=== PATIENT | female | born 1930 | race Caucasian/White ===

== ENCOUNTER 2018-01-12 10:53 | Inpatient (IN) | payer OTHER, MEDICARE ==
[~2018-01-12] VITALS: Ht 154.9 cm; Wt 47.6 kg
[~2018-01-12 10:53] MED LIST: CEPH500C PO; CONJ0.453 PO; DONE10TA12 PO; NAPR-1264 PO; NMN10 PO; POLY335025 PO; TRAM-10 PO
[2018-01-12 11:37] LABS: BASO % 0.1 %; BASO ABS # 0.02 K/uL (0-0.2); HEMATOCRIT 44.1 % (37-47); HEMOGLOBIN 15.2 g/dL (12.0-16.0); IG# 0.06 K/uL (0.00-0.02); LYMPH % 3.5 %; LYMPH ABS # 0.59 K/uL (1.2-3.4); MEAN CELL VOLUME 92.1 fL (80-100); MEAN CORPUSCULAR HEMOGLOBIN 31.7 pg (25-34); MEAN CORPUSCULAR HGB CONC 34.5 g/dl (32-36); MEAN PLATELET VOLUME 10.5 fL (7.4-10.4); MONO % 6.8 %; MONO ABS # 1.16 K/uL (0.11-0.59); NEUT % 89.2 %; NEUT ABS # 15.24 K/uL (1.4-6.5); PLATELET COUNT 202 K/uL (130-400); RED CELL DISTRIBUTION WIDTH CV 14.5 % (11.5-14.5); RED CELL DISTRIBUTION WIDTH SD 48.8 fL (36.4-46.3); WHITE BLOOD COUNT 17.07 K/uL (4.8-10.8)
[2018-01-12] MEDS ORDERED: SODIUM CHLORIDE 0.9% 1000ML 1,000 ML IV STA (11:38)
[2018-01-12] MEDS ORDERED: ONDANSETRON INJ 2 MG/ML 2 ML VIAL IV STA (11:38)
[2018-01-12] MEDS ORDERED: OPTIRAY 320 IV PRN (11:45)
[2018-01-12 11:56] LABS: ALKALINE PHOSPHATASE 70 U/L (45-117); ALT/SGPT 21 U/L (12-78); AST/SGOT 17 U/L (15-37); BLOOD UREA NITROGEN 20 mg/dl (7-18); CALCIUM 9.3 mg/dl (8.5-10.1); CARBON DIOXIDE 24 mmol/L (21-32); CREATININE 0.88 mg/dl (0.60-1.20); GLUCOSE 137 mg/dl (70-99); LIPASE 55 U/L (73-393); POTASSIUM 3.9 mmol/L (3.5-5.1); SODIUM 141 mmol/L (136-145)
--- NOTE | 2018-01-12 13:36 | DIAGNOSTIC IMAGING REPORT ---
ABD/PELVIS IV CONTRAST ONLY CT DOSE: 368.44 mGycm HISTORY: Pain abd pain TECHNIQUE: Multiaxial CT images of the abdomen and pelvis were performed following the use of intravenous contrast. A dose lowering technique was utilized adhering to the principles of ALARA. COMPARISON STUDY: 08/13/2011 FINDINGS: Fixed hiatal hernia. Bibasilar interstitial change considered nonspecific. Liver spleen appear unremarkable. Kidneys again demonstrate multiple parapelvic cysts which are unchanged. Exophytic cystic nodule projecting posteriorly from the pancreatic body is unaltered. The bladder is distended. There are findings of moderate wall edema of the sigmoid as well as descending colonic region. This is not well seen within the a sending or transverse colon, or are seen to a diminished extent. IMPRESSION: 1. Nonspecific colitis involving components of the transverse, descending and sigmoid colonic regions. 2. Mild reactive small bowel ileus. 3. Chronic mid to distal descending colonic diverticulosis 4. Multiple bilateral renal parapelvic cysts unchanged. 5. Fixed hiatal hernia increased in size from the prior study with interstitial and basilar bronchovascular prominence. The above report was generated using voice recognition software. It may contain grammatical, syntax or spelling errors. Electronically signed by: Srini Moore M.D. 01/12/2018 1:35 PM Dictated Date/Time: 01/12/2018 1:28 PM
[2018-01-12] MEDS ORDERED: CEFTRIAXONE SOD INJ 1 GM ADDVIAL IV STA (14:03)
[2018-01-12] MEDS ORDERED: FLUCONAZOLE 50 MG TAB PO ONE (14:15)
[2018-01-12] MEDS ORDERED: DONE5TAB26 PO (15:39)
--- NOTE | 2018-01-12 15:44 | DIAGNOSTIC IMAGING REPORT ---
CHEST ONE VIEW PORTABLE CLINICAL HISTORY: Leucocytosis COMPARISON STUDY: Radiograph April 20, 2008. FINDINGS: Moderate cardiomegaly is noted. There is a hiatal hernia. Contrast within the collecting systems and ureters is from recent contrast-enhanced abdominal CT. No pneumothorax or pleural effusion is noted. Lung volumes are diminished. There is no consolidation to suggest pneumonia. There is no evidence for overt pulmonary edema. There is pulmonary vascular congestion. IMPRESSION: 1. Pulmonary vascular congestion without overt pulmonary edema. 2. Moderate cardiomegaly. 3. No consolidation to suggest pneumonia. Electronically signed by: Ted Lynch M.D. 01/12/2018 3:43 PM Dictated Date/Time: 01/12/2018 3:41 PM
[2018-01-12] MEDS ORDERED: ACETAMINOPHEN 325 MG TAB PO PRN (16:00)
[2018-01-12] MEDS ORDERED: ONDANSETRON INJ 2 MG/ML 2 ML VIAL IV PRN (16:00)
[2018-01-12] MEDS ORDERED: NITROGLYCERIN 0.4 MG SL PER TAB CHARGE SL PRN (16:00)
--- NOTE | 2018-01-12 16:01 | DIAGNOSTIC IMAGING REPORT ---
HEAD WITHOUT CONTRAST (CT) CLINICAL HISTORY: 87 years-old Female presenting with reported NUNES. TECHNIQUE: Multidetector CT imaging of the head was performed without the use of intravenous contrast. IV contrast: None. A dose lowering technique was used consistent with the principles of ALARA (as low as reasonably achievable). COMPARISON: Brain MR from 2013. CT DOSE (mGy.cm): The estimated cumulative dose is 1577.26 mGycm. FINDINGS: [employer] topogram: Unremarkable. Proportional ventricular and sulcal prominence, likely age-related parenchymal volume loss. Periventricular and subcortical white matter hypoattenuation, nonspecific but likely indicative of chronic small vessel ischemic change. Old left cerebellar hemispheric infarct. No mass effect or midline shift. No hemorrhage or acute territorial infarct. No extra-axial fluid collection. Trace mucosal thickening in the right maxillary sinus. Calvarium intact. IMPRESSION: 1. Chronic small vessel ischemic change. No acute intracranial abnormality. Electronically signed by: Jorden Pacheco M.D. 01/12/2018 4:00 PM Dictated Date/Time: 01/12/2018 3:56 PM
[2018-01-12] MEDS ORDERED: PIPERACILL/TAZOBAC CONSULT ACTIVE PRN (16:30)
[2018-01-12] MEDS ORDERED: PIPERACILL/TAZOBAC IV 3.375 GM in D5W 100 ML IV SCH (16:30)
[2018-01-12 16:35] VITALS: BP 157/72; PULSE 66; TEMP 36.8; O2SAT 92
--- NOTE | 2018-01-12 16:36 | History and Physical ---
History & Physical Date & Time of Service: Jan 12, 2018 at 15:57 Chief Complaint: Upset Stomach Primary Care Physician: Hermelindo Baum D.O. History of Present Illness Source: patient, family, caregiver, clinic records, hospital records Pt is 87 y/o F with PMH Alzheimer dementia presented to ER with c/o brown vomiting. History obtained from family and caregiver as pt unable to give history. Patient's reports this morning woke up and found patient in bed covered with brown colored emesis with black flecks. Denies any recent changes in patient's mental status, reports patient slowly increased dementia over the past several years, however patient is is usually pleasant and does not regularly have complaints. reports patient has been eating and drinking normally. states he and patient ate pork roast and cabbage last evening for dinner. reports he had mild abdominal discomfort during the middle of the night which he related to over eating, but no vomiting or diarrhea. Report that patient has caregiver and nurse coming twice daily. Caregiver states 2 days ago patient stated that she was dizzy. States yesterday she said her head hurt. No known syncopal episodes or falls or head injuries. Denies NSAID or alcohol use. Denies recent antibiotic use. Denies hx known gastritis/ulcer. Unsure of last colonoscopy, thinks been greater than 10 years ago. Denies known colon problems. Family and caregiver deny any noted fever/chills, diaphoresis, diarrhea, constipation, melena, hematochezia, noted SOB, cough, choking, extremity edema, rashes, increased urination, hematuria. Reported steady decline in her weight over past several years. Further ROS not able to be obtained secondary to pt's mental status Past Medical/Surgical History Medical Problems: (1) Alzheimer's dementia Status: Chronic (2) Cardiac Dysrhythmia Nos Status: Chronic (3) Chronic lumbar pain Status: Chronic (4) Diverticulosis Colon (W/O Ment Of Hemorrhage) Status: Chronic (5) Fall at home Status: Resolved (6) Hx of right bundle branch block Status: Chronic (7) Hypertension Status: Chronic (8) Laceration of right forearm Status: Resolved (9) Osteoporosis Nos Status: Chronic (10) Ovarian cyst Status: Resolved (11) Right patella fracture Status: Resolved Surgical Problems: (1) History of hip surgery Status: Resolved (2) Hx of oophorectomy Status: Resolved Family History FH: dementia FH: skin cancer FH: stroke Social History Smoking Status: Never Smoker Smokeless Tobacco Use: No Alcohol Use: none Drug Use: none Marital Status: Housing status: lives with significant other Occupational Status: retired Immunizations History of Influenza Vaccine: Yes Influenza Vaccine Date: Mar 19, 2010 History of Tetanus Vaccine?: No History of Pneumococcal: Yes Pneumococcal Date: Mar 19, 2010 History of Hepatitis B Vaccine: No Allergies Coded Allergies: No Known Allergies (Verified , 01/12/18) Home Medications Scheduled Cefdinir (Omnicef), 1 CAP PO BID Donepezil Hydrochloride (Donepezil Hcl), 1 TAB PO DAILY Metronidazole (Flagyl), 500 MG PO TID Omeprazole (Prilosec), 1 CAP PO DAILY Review of Systems See HPI for pertinent positives & negatives. All other systems reviewed and were otherwise negative Physical Exam Vital Signs Date Time Temp Pulse Resp B/P (MAP) Pulse Ox O2 Delivery O2 Flow Rate FiO2 01/12/18 14:22 69 16 133/82 93 Room Air 01/12/18 13:27 65 16 135/95 95 Room Air 01/12/18 11:04 36.8 82 18 129/84 94 Room Air General Appearance: WD/WN, no apparent distress Head: normocephalic, atraumatic Eyes: normal inspection, PERRL, sclerae normal ENT: + pertinent finding (hard of hearing, mucous membranes moist) Neck: supple, trachea midline Respiratory/Chest: no respiratory distress, no accessory muscle use, + decreased breath sounds (throughout) Cardiovascular: regular rate, rhythm Abdomen/GI: normal bowel sounds, non tender (no apparent tenderness to palpation), soft Back: no CVA tenderness Extremities/Musculoskelatal: normal inspection, normal capillary refill, no pedal edema Neurologic/Psych: alert (pleasantly confused, oriented to person) Skin: warm/dry Diagnostics Laboratory Results Results Past 24 Hours Test 01/12/18 11:25 01/12/18 13:01 01/12/18 15:29 01/12/18 15:48 Range/Units White Blood Count 17.07 4.8-10.8 K/uL Red Blood Count 4.79 4.2-5.4 M/uL Hemoglobin 15.2 12.0-16.0 g/dL Hematocrit 44.1 37-47 % Mean Corpuscular Volume 92.1 80-100 fL Mean Corpuscular Hemoglobin 31.7 25-34 pg Mean Corpuscular Hemoglobin Concent 34.5 32-36 g/dl Platelet Count 202 130-400 K/uL Mean Platelet Volume 10.5 7.4-10.4 fL Neutrophils (%) (Auto) 89.2 % Lymphocytes (%) (Auto) 3.5 % Monocytes (%) (Auto) 6.8 % Eosinophils (%) (Auto) 0.0 % Basophils (%) (Auto) 0.1 % Neutrophils # (Auto) 15.24 1.4-6.5 K/uL Lymphocytes # (Auto) 0.59 1.2-3.4 K/uL Monocytes # (Auto) 1.16 0.11-0.59 K/uL Eosinophils # (Auto) 0.00 0-0.5 K/uL Basophils # (Auto) 0.02 0-0.2 K/uL RDW Standard Deviation 48.8 36.4-46.3 fL RDW Coefficient of Variation 14.5 11.5-14.5 % Immature Granulocyte % (Auto) 0.4 % Immature Granulocyte # (Auto) 0.06 0.00-0.02 K/uL Prothrombin Time 10.7 9.0-12.0 SECONDS Prothromb Time International Ratio 1.0 0.9-1.1 Sodium Level 141 136-145 mmol/L Potassium Level 3.9 3.5-5.1 mmol/L Chloride Level 107 98-107 mmol/L Carbon Dioxide Level 24 21-32 mmol/L Anion Gap 10.0 3-11 mmol/L Blood Urea Nitrogen 20 7-18 mg/dl Creatinine 0.88 0.60-1.20 mg/dl Estimated GFR () 69.0 Estimated GFR (Non- 59.5 BUN/Creatinine Ratio 22.6 10-20 Random Glucose 137 70-99 mg/dl Calcium Level 9.3 8.5-10.1 mg/dl Total Bilirubin 0.8 0.2-1 mg/dl Direct Bilirubin 0.2 0-0.2 mg/dl Aspartate Amino Transf (AST/SGOT) 17 15-37 U/L Alanine Aminotransferase (ALT/SGPT) 21 12-78 U/L Alkaline Phosphatase 70 45-117 U/L Total Protein 8.0 6.4-8.2 gm/dl Albumin 4.0 3.4-5.0 gm/dl Lipase 55 73-393 U/L Urine Color DK YELLOW Urine Appearance CLOUDY CLEAR Urine pH 5.0 4.5-7.5 Urine Specific [place] 1.041 1.000-1.030 Urine Protein 1+ NEG Urine Glucose (UA) NEG NEG Urine Ketones TRACE NEG Urine Occult Blood 1+ NEG Urine Nitrite NEG NEG Urine Bilirubin NEG NEG Urine Urobilinogen NEG NEG Urine Leukocyte Esterase MODERATE NEG Urine WBC (Auto) >30 0-5 /hpf Urine RBC (Auto) 0-4 0-4 /hpf Urine Hyaline Casts (Auto) 0-5 /lpf Urine Epithelial Cells (Auto) 0-5 0-5 /lpf Urine Bacteria (Auto) 4+ NEG Urine Pathogenic Casts 0 /lpf Urine Yeast (Auto) BUD W/ HYPHAE NONE PRSENT Microbiology Results 01/12/18 Blood Culture, Ordered Pending 01/12/18 Blood Culture, Ordered Pending 01/12/18 Urine Culture, Received Pending Diagnostic Radiology CT HEAD: IMPRESSION: 1. Chronic small vessel ischemic change. No acute intracranial abnormality. CXR: IMPRESSION: 1. Pulmonary vascular congestion without overt pulmonary edema. 2. Moderate cardiomegaly. 3. No consolidation to suggest pneumonia. CT ABDOMEN/PELVIS: IMPRESSION: 1. Nonspecific colitis involving components of the transverse, descending and sigmoid colonic regions. 2. Mild reactive small bowel ileus. 3. Chronic mid to distal descending colonic diverticulosis 4. Multiple bilateral renal parapelvic cysts unchanged. 5. Fixed hiatal hernia increased in size from the prior study with interstitial and basilar bronchovascular prominence. EKG EKG: sinus rhythm, rate 74, RBBB, T wave abnormality V1,V3, V4, II, III, avf Outpatient EKG report reviewed from 01/2017: NSR, RBBB, inferior infarct age undetermined, T wave abnormality, consider lateral ischemia Impression Assessment and Plan Pt is 87 y/o F with PMH Alzheimer dementia presented to ER with c/o brown vomiting. History obtained from family and caregiver as pt unable to give history. Patient's reports this morning woke up and found patient in bed covered with brown colored emesis with black flecks. GI BLEED COLITIS SMALL BOWEL ILEUS Pt reported found this morning with coffee ground emesis. No further vomiting in ER. In ER: Patient afebrile, vitals stable, Hgb: 15.2, BUN: 20, CR: 0.88. ABD/pelvis CT: Nonspecific colitis involving components of the transverse, descending and sigmoid colonic regions. Mild reactive small bowel ileus. Chronic mid to distal descending colonic diverticulosis. Multiple bilateral renal parapelvic cysts unchanged. Fixed hiatal hernia increased in size from the prior study with interstitial and basilar bronchovascular prominence. CT HEAD: no acute changes. In ER patient given 1 NSS, Zofran 4 mg, Rocephin -gentle IVF -NPO for now -holding on NG tube at this time as no further vomiting, no apparent abdominal discomfort or distension -Monitor H&H -Type & Cross and hold PRBCs at this time -Protonix IV BID -zosyn -cbc in am -KUB in am -GI consult - spoke to investor relations director provider LEUKOCYTOSIS UTI WBC: 17, lactic acid:WNL UA:moderate leuk, >30 WBC, 4+bacteria, +yeast CXR: Pulmonary vascular congestion without overt pulmonary edema. No consolidation to suggest pneumonia. In ER patient given Rocephin, Diflucan -Urine culture pending -Pending blood cultures, obtained after initial antibiotics -zosyn for now -cbc in am ALZHEIMER DEMENTIA pleasantly confused. No reported change from baseline per family -continue aricept H/O HTN no current meds DVT Prophylaxis -SCDs Admit tele Full Code as per discussion with pt family Follows with Dr Baum for routine care Pt was seen with Dr Vanessa. See addendum Attending Addendum Pt was seen and examined. Agreed with Radha DOUGHERTY exam, assessment and plan. 87 y/o F with PMH Alzheimer dementia presented to ER with for emesis. History is limited and obtained from family and caregiver due to patient dementia. As per pt was found in bed covered with coffee ground colored emesis. Pt denies any chest pain, palpitation, dizziness and SOB. CT abd/pelvis done in the ER showed a nonspecific colitis involving components of the transverse, descending and sigmoid colonic regions and mild reactive small bowel ileus. Hbg on admission stable. Was starting on PPI IV and gentle IVF. Will keep NPO. No NGT placement since pt is not actively vomiting. GI consult for EGD in am. Continue monitor H/H. MD Rasheeda Resuscitation Status VTE Prophylaxis Will order VTE Prophylaxis: Yes Additional Copies To David Vanessa M.D.
--- NOTE | 2018-01-12 17:16 | EMERGENCY ROOM VISIT NOTE ---
History Report prepared by Sahil: Dank Reyes Under the Supervision of: Dacia RomanO. First contact with patient: 11:13 Chief Complaint: VOMITING Stated Complaint: UPSET STOMACH History of Present Illness The patient is a 87 year old female who presents to the Emergency Room with complaints of intermittent "violent" vomiting beginning last night. Family states that she ate pulled pork last night and that she vomited 1 hour after the meal. They report that the patient does not remember what happened, but this is no different from the patient's baseline. The patient denies having diarrhea but notes she has occasional abdominal pain, but not currently. She denies headache, changes in vision, or urinary symptoms. Family reports that the patient last vomited at 4 AM. They state that she was seen by family at around 10 AM with dried green vomit on her bed. They report that she does not take blood thinners. They state that she has had nothing to eat or drink this morning. Caregiver did note that patient had coffee-ground emesis at home. This was covering her hands in the ER. History was limited secondary to dementia and was obtained mainly from and caregiver. Source of History: patient, family Onset: last night Position: throat (vomiting) Symptom Intensity: "violent" Quality: other (vomiting) Timing: intermittent Associated Symptoms: No headache, No urinary symptoms Review of Systems See HPI for pertinent positives & negatives. A total of 10 systems reviewed and were otherwise negative. Past Medical & Surgical Medical Problems: (1) Alzheimer's dementia (2) Cardiac Dysrhythmia Nos (3) Chronic lumbar pain (4) Diverticulosis Colon (W/O Ment Of Hemorrhage) (5) Fall at home (6) GI bleed (7) Hx of right bundle branch block (8) Hypertension (9) Laceration of right forearm (10) Osteoporosis Nos (11) Ovarian cyst (12) Right patella fracture (13) Vomiting Surgical Problems: (1) History of hip surgery (2) Hx of oophorectomy Family History FH: dementia FH: skin cancer FH: stroke Social History Smoking Status: Never Smoker Alcohol Use: occasionally Marital Status: Housing Status: lives with family Occupation Status: retired Current/Historical Medications Scheduled Donepezil Hydrochloride (Donepezil Hcl), 1 TAB PO DAILY Allergies Coded Allergies: No Known Allergies (Verified , 8/13/18) Physical Exam Vital Signs Date Time Temp Pulse Resp B/P (MAP) Pulse Ox O2 Delivery O2 Flow Rate FiO2 01/12/18 14:22 69 16 133/82 93 Room Air 01/12/18 13:27 65 16 135/95 95 Room Air 01/12/18 11:04 36.8 82 18 129/84 94 Room Air Physical Exam GENERAL: Sitting up in bed, pleasantly demented, non-toxic EYE EXAM: normal conjunctiva. PERRL and EOM's grossly intact. OROPHARYNX: no exudate, no erythema, lips, buccal mucosa, and tongue normal and mucous membranes are dry NECK: supple, no nuchal rigidity, no adenopathy, non-tender LUNGS: Clear to auscultation. Normal chest wall mechanics HEART: no murmurs, S1 normal and S2 normal ABDOMEN: abdomen soft, non-tender, normo-active bowel sounds, no masses, no rebound or guarding. BACK: Back is symmetrical on inspection and there is no deformity, no midline tenderness, no CVA tenderness. SKIN: no rashes and no bruising UPPER EXTREMITIES: upper extremities are grossly normal. LOWER EXTREMITIES: No pitting edema. NEURO EXAM: Awake, alert, following commands, pleasantly demented. Cranial nerves II-XII intact, normal speech, no weakness of arms, no weakness of legs. No drift. Finger to nose intact. Gross sensation intact. Medical Decision & Procedures ER Provider Diagnostic Interpretation: Radiology results as stated below per my review and the radiologist's interpretation: CHEST ONE VIEW PORTABLE CLINICAL HISTORY: Leucocytosis COMPARISON STUDY: Radiograph April 20, 2008. FINDINGS: Moderate cardiomegaly is noted. There is a hiatal hernia. Contrast within the collecting systems and ureters is from recent contrast-enhanced abdominal CT. No pneumothorax or pleural effusion is noted. Lung volumes are diminished. There is no consolidation to suggest pneumonia. There is no evidence for overt pulmonary edema. There is pulmonary vascular congestion. IMPRESSION: 1. Pulmonary vascular congestion without overt pulmonary edema. 2. Moderate cardiomegaly. 3. No consolidation to suggest pneumonia. Electronically signed by: Ted Lynch M.D. 01/12/2018 3:43 PM Dictated Date/Time: 01/12/2018 3:41 PM HEAD WITHOUT CONTRAST (CT) CLINICAL HISTORY: 87 years-old Female presenting with reported NUNES. TECHNIQUE: Multidetector CT imaging of the head was performed without the use of intravenous contrast. IV contrast: None. A dose lowering technique was used consistent with the principles of ALARA (as low as reasonably achievable). COMPARISON: Brain MR from 2013. CT DOSE (mGy.cm): The estimated cumulative dose is 1577.26 mGycm. 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 Proportional ventricular and sulcal prominence, likely age-related parenchymal volume loss. Periventricular and subcortical white matter hypoattenuation, nonspecific but likely indicative of chronic small vessel ischemic change. Old left cerebellar hemispheric infarct. No mass effect or midline shift. No hemorrhage or acute territorial infarct. No extra-axial fluid collection. Trace mucosal thickening in the right maxillary sinus. Calvarium intact. IMPRESSION: 1. Chronic small vessel ischemic change. No acute intracranial abnormality. Electronically signed by: Jorden Pacheco M.D. 01/12/2018 4:00 PM Dictated Date/Time: 01/12/2018 3:56 PM ABD/PELVIS IV CONTRAST ONLY CT DOSE: 368.44 mGycm HISTORY: Pain abd pain TECHNIQUE: Multiaxial CT images of the abdomen and pelvis were performed following the use of intravenous contrast. A dose lowering technique was utilized adhering to the principles of ALARA. COMPARISON STUDY: 08/13/2011 FINDINGS: Fixed hiatal hernia. Bibasilar interstitial change considered nonspecific. Liver spleen appear unremarkable. Kidneys again demonstrate multiple parapelvic cysts which are unchanged. Exophytic cystic nodule projecting posteriorly from the pancreatic body is unaltered. The bladder is distended. There are findings of moderate wall edema of the sigmoid as well as descending colonic region. This is not well seen within the a sending or transverse colon, or are seen to a diminished extent. IMPRESSION: 1. Nonspecific colitis involving components of the transverse, descending and sigmoid colonic regions. 2. Mild reactive small bowel ileus. 3. Chronic mid to distal descending colonic diverticulosis 4. Multiple bilateral renal parapelvic cysts unchanged. 5. Fixed hiatal hernia increased in size from the prior study with interstitial and basilar bronchovascular prominence. The above report was generated using voice recognition software. It may contain grammatical, syntax or spelling errors. Electronically signed by: Srini Moore M.D. 01/12/2018 1:35 PM Dictated Date/Time: 01/12/2018 1:28 PM Laboratory Results 01/12/18 11:25 Red Blood Count 4.79, Mean Corpuscular Volume 92.1, Mean Corpuscular Hemoglobin 31.7, Mean Corpuscular Hemoglobin Concent 34.5, Mean Platelet Volume 10.5, Neutrophils (%) (Auto) 89.2, Lymphocytes (%) (Auto) 3.5, Monocytes (%) (Auto) 6.8, Eosinophils (%) (Auto) 0.0, Basophils (%) (Auto) 0.1, Neutrophils # (Auto) 15.24, Lymphocytes # (Auto) 0.59, Monocytes # (Auto) 1.16, Eosinophils # (Auto) 0.00, Basophils # (Auto) 0.02 01/12/18 11:25 Test 01/12/18 11:25 01/12/18 13:01 White Blood Count 17.07 K/uL (4.8-10.8) Red Blood Count 4.79 M/uL (4.2-5.4) Hemoglobin 15.2 g/dL (12.0-16.0) Hematocrit 44.1 % (37-47) Mean Corpuscular Volume 92.1 fL (80-100) Mean Corpuscular Hemoglobin 31.7 pg (25-34) Mean Corpuscular Hemoglobin Concent 34.5 g/dl (32-36) Platelet Count 202 K/uL (130-400) Mean Platelet Volume 10.5 fL (7.4-10.4) Neutrophils (%) (Auto) 89.2 % Lymphocytes (%) (Auto) 3.5 % Monocytes (%) (Auto) 6.8 % Eosinophils (%) (Auto) 0.0 % Basophils (%) (Auto) 0.1 % Neutrophils # (Auto) 15.24 K/uL (1.4-6.5) Lymphocytes # (Auto) 0.59 K/uL (1.2-3.4) Monocytes # (Auto) 1.16 K/uL (0.11-0.59) Eosinophils # (Auto) 0.00 K/uL (0-0.5) Basophils # (Auto) 0.02 K/uL (0-0.2) RDW Standard Deviation 48.8 fL (36.4-46.3) RDW Coefficient of Variation 14.5 % (11.5-14.5) Immature Granulocyte % (Auto) 0.4 % Immature Granulocyte # (Auto) 0.06 K/uL (0.00-0.02) Prothrombin Time 10.7 SECONDS (9.0-12.0) Prothromb Time International Ratio 1.0 (0.9-1.1) Anion Gap 10.0 mmol/L (3-11) Estimated GFR () 69.0 Estimated GFR (Non- 59.5 BUN/Creatinine Ratio 22.6 (10-20) Calcium Level 9.3 mg/dl (8.5-10.1) Total Bilirubin 0.8 mg/dl (0.2-1) Direct Bilirubin 0.2 mg/dl (0-0.2) Aspartate Amino Transf (AST/SGOT) 17 U/L (15-37) Alanine Aminotransferase (ALT/SGPT) 21 U/L (12-78) Alkaline Phosphatase 70 U/L (45-117) Total Protein 8.0 gm/dl (6.4-8.2) Albumin 4.0 gm/dl (3.4-5.0) Lipase 55 U/L (73-393) Urine Color DK YELLOW Urine Appearance CLOUDY (CLEAR) Urine pH 5.0 (4.5-7.5) Urine Specific [place] 1.041 (1.000-1.030) Urine Protein 1+ (NEG) Urine Glucose (UA) NEG (NEG) Urine Ketones TRACE (NEG) Urine Occult Blood 1+ (NEG) Urine Nitrite NEG (NEG) Urine Bilirubin NEG (NEG) Urine Urobilinogen NEG (NEG) Urine Leukocyte Esterase MODERATE (NEG) Urine WBC (Auto) >30 /hpf (0-5) Urine RBC (Auto) 0-4 /hpf (0-4) Urine Hyaline Casts (Auto) /lpf (0-5) Urine Epithelial Cells (Auto) 0-5 /lpf (0-5) Urine Bacteria (Auto) 4+ (NEG) Urine Pathogenic Casts /lpf (0) Urine Yeast (Auto) BUD W/ HYPHAE (NONE PRSENT) Laboratory results per my review. Medications Administered Medications (Trade) Dose Ordered Sig/Tiarra Route Start Time Stop Time Status Last Admin Dose Admin Sodium Chloride 1,000 ml @ 999 mls/hr Q1H1M STAT IV 01/12/18 11:38 01/12/18 12:38 DC 01/12/18 11:44 999 MLS/HR Ondansetron HCl (Zofran Inj) 4 mg NOW STAT IV 01/12/18 11:38 01/12/18 11:40 DC 01/12/18 11:45 4 MG Ceftriaxone Sodium (Rocephin Inj) 1 gm NOW STAT IV 01/12/18 14:03 01/12/18 14:05 DC 01/12/18 14:14 1 GM Fluconazole (Diflucan Tab) 150 mg NOW ONCE PO 01/12/18 14:15 01/12/18 14:16 DC 01/12/18 14:14 150 MG ECG Per My Interpretation Indication: vomiting Rate (beats per minute): 74 Rhythm: normal sinus Findings: T-wave inversion (Inferior, septal, anterior), other (RBBB) Comparison ECG Date: 01/17/2014 Change: no significant change (RBBB is new) ED Course ED COURSE: Vital signs were reviewed and showed normal vitals The patients medical record was reviewed The above diagnostic studies were performed and reviewed. ED treatments and interventions as stated above. 1138: The patient was evaluated in room C11A. A complete history and physical examination was performed. 1438: I spoke with Radha Patterson PA-C: [facility] Hospitalist. She will reevaluate the patient for hospitalization. Based on the patients age, coexisting illnesses, exam and lab findings the decision to treat as an [inpatient][outpatient] was made. The patient remained stable while under my care. [The patient appeared well at the time of discharge.] [The patient will be evaluated for further management.] Medical Decision Differential diagnoses includes but is not limited to gastritis, peptic ulcer disease, GERD, gallbladder disease, pancreatitis, small bowel obstruction, acute coronary syndrome, pericarditis, ischemic bowel, irritable bowel disease, irritable bowel syndrome, appendicitis, diverticulitis, malignancy, hernia, urinary tract infection, torsion, [/ectopic (if female)], perforation, trauma, infectious. Patient is an 87-year-old female who presents the ER for nausea vomiting. Significant other notes that she is at her baseline and she has dementia and started vomiting last night after eating. Labs were remarkable for a leukocytosis of 17,000. BMP along with LFTs, bilirubin and lipase was unremarkable. Her abdominal exam is fairly benign. UA does suggest that she has a UTI along with a yeast infection. She was given IV Rocephin and Diflucan. CT abdomen and pelvis does show an ileus with diffuse colitis. EKG was unremarkable. Discussed with the hospitalist due to the ileus, UTI and persistent nausea vomiting along with the coffee-ground emesis which is noted by the caregiver and present on her hands. Medication Reconcilliation Current Medication List: was personally reviewed by me Blood Pressure Screening Patient's blood pressure: Normal blood pressure Blood pressure disposition: Did not require urgent referral Consults Time Called: 1425 Consulting Physician: Radha Patterson PA-C: [facility]. Returned Call: 1438 I spoke with Radha Patterson PA-C: [facility]. She will reevaluate the patient for hospitalization. Impression Primary Impression: Vomiting Additional Impressions: Urinary tract infection Hematemesis Scribe Attestation The scribe's documentation has been prepared under my direction and personally reviewed by me in its entirety. I confirm that the note above accurately reflects all work, treatment, procedures, and medical decision making performed by me. Departure Information Dispostion Being Evaluated By Hospitalist Referrals RV. Champion MD (PCP) Patient Instructions [facility] Problem Qualifiers Primary Impression: Vomiting Vomiting type: unspecified Vomiting Intractability: unspecified Nausea presence: unspecified Qualified Codes: R11.10 - Vomiting, unspecified Additional Impressions: Urinary tract infection Urinary tract infection type: acute cystitis Hematuria presence: with hematuria Qualified Codes: N30.01 - Acute cystitis with hematuria Hematemesis Nausea presence: unspecified Qualified Codes: K92.0 - Hematemesis
--- NOTE | 2018-01-12 17:24 | Gastrointestinal Consultation ---
Gastrointestinal Consultation Date of Consultation: Jan 12, 2018 Attending Physician: Radha Patterson Consulting Physician: Maryuri Chowdary MD Reason for Consultation: coffee ground emesis History of Present Illness Patient is an 87 year old female with a recent hx of intermittent epigastric discomfort and occasional dizziness, found this morning in bed covered in coffee ground emesis. She has dementia and history is provided by her daughter, who is with her at bedside. Hgb is 15. WBC is elevated at 17. BUN is mildly elevated at 20, with a normal creat. CTAP as below. Patient has had no further emesis since she has been in the ED. She continues with mild epigastric discomfort. Per her daughter, she did have a GI evaluation about 3 years ago in [place], but she does not know the details. We have no record of prior endoscopic evaluation. CTAP: IMPRESSION: 1. Nonspecific colitis involving components of the transverse, descending and sigmoid colonic regions. 2. Mild reactive small bowel ileus. 3. Chronic mid to distal descending colonic diverticulosis 4. Multiple bilateral renal parapelvic cysts unchanged. 5. Fixed hiatal hernia increased in size from the prior study with interstitial and basilar bronchovascular prominence. Past Medical/Surgical History Past Medical History: HTN, RBBB, Dementia, osteoporosis Past Surgical History: hip surgery, oophorectomy Family History FH: dementia FH: skin cancer FH: stroke Social History Smoking Status: Never Smoker Alcohol Use: occasionally Drug Use: none Marital Status: Housing Status: lives with family Occupation Status: retired Allergies Coded Allergies: No Known Allergies (Verified , 01/12/18) Current Medications Home Meds and Scripts Medications Dose Route/Sig Max Daily Dose Days Date Category Donepezil Hcl (Donepezil Hydrochloride) 5 Mg Tab 1 Tab PO DAILY 30 01/12/18 Reported Review of Systems Constitutional: No fever, No chills Eyes: No worsening of vision ENT: No hearing loss Respiratory: No cough, No shortness of breath Cardiac: No chest pain Abdomen: + see HPI Female : No dysuria (patient noted to have a UTI) Neuro: + memory loss Psych: No problem reported Heme: + see HPI Endo: No excessive thirst, No excessive urination Skin: No rash, No itch Physical Exam Date Time Temp Pulse Resp B/P (MAP) Pulse Ox O2 Delivery O2 Flow Rate FiO2 01/12/18 16:35 36.8 66 22 157/72 (100) 92 Room Air 01/12/18 16:10 36.8 69 16 133/82 93 01/12/18 14:22 69 16 133/82 93 Room Air 01/12/18 13:27 65 16 135/95 95 Room Air 01/12/18 11:04 36.8 82 18 129/84 94 Room Air General Appearance: no apparent distress Eyes: normal inspection ENT: hearing grossly normal Neck: supple Respiratory/Chest: lungs clear, normal breath sounds, no respiratory distress Cardiovascular: regular rate, rhythm Abdomen: normal bowel sounds, non tender, soft, no organomegaly Extremities: no pedal edema Neurologic/Psych: alert, normal mood/affect Skin: no jaundice, warm/dry Laboratory Results Last 24 Hours Test 01/12/18 11:25 01/12/18 13:01 01/12/18 16:07 01/12/18 17:00 White Blood Count 17.07 K/uL Red Blood Count 4.79 M/uL Hemoglobin 15.2 g/dL Hematocrit 44.1 % Mean Corpuscular Volume 92.1 fL Mean Corpuscular Hemoglobin 31.7 pg Mean Corpuscular Hemoglobin Concent 34.5 g/dl Platelet Count 202 K/uL Mean Platelet Volume 10.5 fL Neutrophils (%) (Auto) 89.2 % Lymphocytes (%) (Auto) 3.5 % Monocytes (%) (Auto) 6.8 % Eosinophils (%) (Auto) 0.0 % Basophils (%) (Auto) 0.1 % Neutrophils # (Auto) 15.24 K/uL Lymphocytes # (Auto) 0.59 K/uL Monocytes # (Auto) 1.16 K/uL Eosinophils # (Auto) 0.00 K/uL Basophils # (Auto) 0.02 K/uL RDW Standard Deviation 48.8 fL RDW Coefficient of Variation 14.5 % Immature Granulocyte % (Auto) 0.4 % Immature Granulocyte # (Auto) 0.06 K/uL Prothrombin Time 10.7 SECONDS Prothromb Time International Ratio 1.0 Sodium Level 141 mmol/L Potassium Level 3.9 mmol/L Chloride Level 107 mmol/L Carbon Dioxide Level 24 mmol/L Anion Gap 10.0 mmol/L Blood Urea Nitrogen 20 mg/dl Creatinine 0.88 mg/dl Estimated GFR () 69.0 Estimated GFR (Non- 59.5 BUN/Creatinine Ratio 22.6 Random Glucose 137 mg/dl Calcium Level 9.3 mg/dl Total Bilirubin 0.8 mg/dl Direct Bilirubin 0.2 mg/dl Aspartate Amino Transf (AST/SGOT) 17 U/L Alanine Aminotransferase (ALT/SGPT) 21 U/L Alkaline Phosphatase 70 U/L Total Protein 8.0 gm/dl Albumin 4.0 gm/dl Lipase 55 U/L Urine Color DK YELLOW Urine Appearance CLOUDY Urine pH 5.0 Urine Specific [place] 1.041 Urine Protein 1+ Urine Glucose (UA) NEG Urine Ketones TRACE Urine Occult Blood 1+ Urine Nitrite NEG Urine Bilirubin NEG Urine Urobilinogen NEG Urine Leukocyte Esterase MODERATE Urine WBC (Auto) >30 /hpf Urine RBC (Auto) 0-4 /hpf Urine Hyaline Casts (Auto) /lpf Urine Epithelial Cells (Auto) 0-5 /lpf Urine Bacteria (Auto) 4+ Urine Pathogenic Casts /lpf Urine Yeast (Auto) BUD W/ HYPHAE Lactic Acid Level 1.9 mmol/L Troponin I < 0.015 ng/ml Impression Patient is a 87 year old female presenting after one episode of coffee ground emesis. Hgb normal at 15. Plan IV PPI twice daily as current. Clear liquid diet. Monitor labs/symptoms. Would consider EGD on Friday vs outpatient, pending course. OP colonoscopy. I have seen and examined the patient and agree with above assessment and plan, she has no abdominal pain or tenderness. I reviewed and discussed the assessment and plan with Mayte Rashid and agree with her note. 87 F presented with coffee ground emesis and weakness, found with sepsis related to UTI, no vomiting in the hospital, H/H normal. Likely Esophagitis or small MWT and seems self limited now. IV PPI Treat sepsis will plan for EGD once clinically recovered from sepsis to tolerate anaesthesia , tentatively on Friday.
[2018-01-12] MEDS: SODIUM CHLORIDE 0.9% 1000ML 1,000 ML IV SCH (17:27)
[2018-01-12 17:30] VITALS: BP 157/72; PULSE 66; TEMP 36.8; O2SAT 92; Ht 154.9 cm; Wt 47.6 kg
[2018-01-12 18:26] LABS: HEMATOCRIT 40.3 % (37-47); HEMOGLOBIN 13.8 g/dL (12.0-16.0)
[2018-01-12] MEDS ORDERED: PATIENT'S HEIGHT NEEDED SCH (18:30)
[2018-01-12 19:17] VITALS: BP 122/64; PULSE 73; TEMP 36.4; O2SAT 91
[2018-01-12] MEDS: PANTOprazole INJ 40 MG in SYRINGE 0 ML IV SCH (20:37)
[2018-01-12 21:14] VITALS: BP 107/61; PULSE 63; TEMP 36.8; O2SAT 92
[2018-01-12] MEDS: PIPERACILL/TAZOBAC IV 3.375 GM in D5W 100ML IV SCH (23:49)
[2018-01-13 04:37] VITALS: BP 126/71; PULSE 68; TEMP 37.2; O2SAT 93
[2018-01-13 06:01] LABS: BASO % 0.2 %; BASO ABS # 0.02 K/uL (0-0.2); EOS % 1.6 %; EOS ABS # 0.21 K/uL (0-0.5); HEMATOCRIT 37.6 % (37-47); HEMOGLOBIN 12.8 g/dL (12.0-16.0); IG# 0.05 K/uL (0.00-0.02); LYMPH % 10.5 %; LYMPH ABS # 1.36 K/uL (1.2-3.4); MEAN CELL VOLUME 94.2 fL (80-100); MEAN CORPUSCULAR HEMOGLOBIN 32.1 pg (25-34); MEAN PLATELET VOLUME 10.1 fL (7.4-10.4); MONO % 9.1 %; MONO ABS # 1.18 K/uL (0.11-0.59); NEUT % 78.2 %; NEUT ABS # 10.12 K/uL (1.4-6.5); PLATELET COUNT 155 K/uL (130-400); RED CELL DISTRIBUTION WIDTH CV 14.8 % (11.5-14.5); RED CELL DISTRIBUTION WIDTH SD 50.8 fL (36.4-46.3); WHITE BLOOD COUNT 12.94 K/uL (4.8-10.8)
[2018-01-13 06:30] LABS: CALCIUM 8.3 mg/dl (8.5-10.1); CREATININE 0.93 mg/dl (0.60-1.20); POTASSIUM 3.6 mmol/L (3.5-5.1)
[2018-01-13 07:00] VITALS: BP 119/67; PULSE 53; TEMP 37.1; O2SAT 92
[2018-01-13] MEDS: PIPERACILL/TAZOBAC IV 3.375 GM in D5W 100ML IV SCH ×2 (07:34→16:14)
[2018-01-13] MEDS: DONEPEZIL HCL 5 MG TAB PO SCH (08:20)
[2018-01-13] MEDS: PANTOprazole INJ 40 MG in SYRINGE 0 ML IV SCH ×2 (08:21→20:51)
--- NOTE | 2018-01-13 08:22 | DIAGNOSTIC IMAGING REPORT ---
KUB CLINICAL HISTORY: 87 years-old Female presenting with small bowel ileus. TECHNIQUE: Single supine view of the abdomen was obtained. COMPARISON: CT from 01/12/2018 and plain radiograph from 01/17/2014. FINDINGS: Paucity of small bowel gas, nonspecific. Allowing for this, nonobstructive bowel gas pattern. No gross pneumoperitoneum. Excreted contrast noted in the urinary bladder. No radiographic evidence of renal or ureteral calculi. Atherosclerotic calcifications noted. Degenerative change and scoliotic curvature of the lumbar spine. Postsurgical changes of total right hip arthroplasty. Osteopenia suspected. IMPRESSION: 1. No radiographic evidence of bowel obstruction or ileus allowing for the paucity of small bowel gas. Electronically signed by: Jorden Pacheco M.D. 01/13/2018 8:21 AM Dictated Date/Time: 01/13/2018 8:15 AM
[2018-01-13 11:31] VITALS: BP 101/68; PULSE 61; TEMP 36.3; O2SAT 96
[2018-01-13] MEDS: SODIUM CHLORIDE 0.9% 1000ML 1,000 ML IV SCH ×2 (11:32→16:14)
--- NOTE | 2018-01-13 12:23 | Gastroenterology Progress Note ---
Progress Note Date of Service: Jan 13, 2018 Subjective Pt evaluation today including: conversation w/ patient, conversation w/ family , physical exam, chart review, lab review, review of studies Patient is feeling well today. No further emesis. No nausea. Denies abdominal pain. No BM since admission. Tolerating clears. Hgb stable at 12.8. Review of Systems Constitutional: No fever, No chills Eyes: No worsening of vision ENT: + hearing loss Respiratory: No cough, No shortness of breath Cardiac: No chest pain Abdomen: + see HPI Musculoskeletal: No joint pain Female : No dysuria Neuro: + memory loss Psych: No problem reported Heme: No abnormal bleeding/bruising Endo: No excessive thirst, No excessive urination Skin: No rash, No itch Medications Current Inpatient Medications Medications (Trade) Dose Ordered Sig/Tiarra Route Start Time Stop Time Status Last Admin Dose Admin Ioversol (Optiray 320) 100 ml UD PRN IV 01/12/18 11:45 01/16/18 11:44 Pantoprazole Sodium 40 mg/ Syringe 10 ml @ 5 mls/min DAILY@ IV 01/12/18 21:00 02/11/18 20:59 01/13/18 08:21 5 MLS/MIN Acetaminophen (Tylenol Tab) 650 mg Q4H PRN PO 01/12/18 16:00 02/11/18 15:59 Ondansetron HCl (Zofran Inj) 4 mg Q6H PRN IV 01/12/18 16:00 02/11/18 15:59 Nitroglycerin (Nitrostat Tab) 0.4 mg UD PRN SL 01/12/18 16:00 02/11/18 15:59 Miscellaneous Information (Consult) 1 ea UD PRN N/A 01/12/18 16:30 02/11/18 16:29 Sodium Chloride 1,000 ml @ 80 mls/hr [id number] IV 01/12/18 16:00 02/11/18 15:59 01/13/18 11:32 80 MLS/HR Donepezil HCl (Aricept Tab) 5 mg DAILY PO 01/13/18 09:00 02/12/18 08:59 01/13/18 08:20 5 MG Piperacillin Sod/ Tazobactam Sod 3.375 gm/Dextrose 115 ml @ 28.75 mls/ hr Q8H IV 01/13/18 00:00 01/18/18 00:00 01/13/18 07:34 28.75 MLS/HR Objective Vital Signs Date Time Temp Pulse Resp B/P (MAP) Pulse Ox O2 Delivery O2 Flow Rate FiO2 01/13/18 11:31 36.3 61 20 101/68 (79) 96 Room Air 01/13/18 08:00 Room Air 01/13/18 07:00 37.1 53 20 119/67 (84) 92 Room Air 01/13/18 04:37 37.2 68 18 126/71 (89) 93 Room Air 01/12/18 21:14 36.8 63 20 107/61 (76) 92 Room Air 01/12/18 20:00 Room Air 01/12/18 19:17 36.4 73 19 122/64 (83) 91 Room Air 01/12/18 17:30 36.8 66 22 157/72 92 Room Air 01/12/18 16:35 36.8 66 22 157/72 (100) 92 Room Air 01/12/18 16:10 36.8 69 16 133/82 93 01/12/18 14:22 69 16 133/82 93 Room Air 01/12/18 13:27 65 16 135/95 95 Room Air Physical Exam General Appearance: no apparent distress Eyes: normal inspection Neck: supple Respiratory/Chest: lungs clear, normal breath sounds, no respiratory distress Cardiovascular: regular rate, rhythm Abdomen: normal bowel sounds, non tender, soft, no organomegaly Extremities: no pedal edema Neurologic/Psych: alert, normal mood/affect Skin: warm/dry, no rash Laboratory Results Last 24 Hours Test 01/12/18 13:01 01/12/18 16:07 01/12/18 17:11 01/13/18 05:23 Urine Color DK YELLOW Urine Appearance CLOUDY Urine pH 5.0 Urine Specific [place] 1.041 Urine Protein 1+ Urine Glucose (UA) NEG Urine Ketones TRACE Urine Occult Blood 1+ Urine Nitrite NEG Urine Bilirubin NEG Urine Urobilinogen NEG Urine Leukocyte Esterase MODERATE Urine WBC (Auto) >30 /hpf Urine RBC (Auto) 0-4 /hpf Urine Hyaline Casts (Auto) /lpf Urine Epithelial Cells (Auto) 0-5 /lpf Urine Bacteria (Auto) 4+ Urine Pathogenic Casts /lpf Urine Yeast (Auto) BUD W/ HYPHAE Lactic Acid Level 1.9 mmol/L Troponin I < 0.015 ng/ml Hemoglobin 13.8 g/dL 12.8 g/dL Hematocrit 40.3 % 37.6 % White Blood Count 12.94 K/uL Red Blood Count 3.99 M/uL Mean Corpuscular Volume 94.2 fL Mean Corpuscular Hemoglobin 32.1 pg Mean Corpuscular Hemoglobin Concent 34.0 g/dl Platelet Count 155 K/uL Mean Platelet Volume 10.1 fL Neutrophils (%) (Auto) 78.2 % Lymphocytes (%) (Auto) 10.5 % Monocytes (%) (Auto) 9.1 % Eosinophils (%) (Auto) 1.6 % Basophils (%) (Auto) 0.2 % Neutrophils # (Auto) 10.12 K/uL Lymphocytes # (Auto) 1.36 K/uL Monocytes # (Auto) 1.18 K/uL Eosinophils # (Auto) 0.21 K/uL Basophils # (Auto) 0.02 K/uL RDW Standard Deviation 50.8 fL RDW Coefficient of Variation 14.8 % Immature Granulocyte % (Auto) 0.4 % Immature Granulocyte # (Auto) 0.05 K/uL Sodium Level 142 mmol/L Potassium Level 3.6 mmol/L Chloride Level 110 mmol/L Carbon Dioxide Level 26 mmol/L Anion Gap 6.0 mmol/L Blood Urea Nitrogen 14 mg/dl Creatinine 0.93 mg/dl Est Creatinine Clear Calc Drug Dose 31.5 ml/min Estimated GFR () 64.5 Estimated GFR (Non- 55.6 BUN/Creatinine Ratio 15.2 Random Glucose 86 mg/dl Calcium Level 8.3 mg/dl Assessment and Plan Patient is an 87 year old female presenting after one episode of coffee ground emesis. Hgb stable today at 12.8. -Continue clear liquids today, NPO after midnight -Continue PPI -EGD tomorrow I performed a history and physical examination of the patient, including specifically soft, nontender abdomen, I have discussed the patient's management with Mayte Rashid PA-C. Please refer to the PA's note for the documented findings and plan of care.
[2018-01-13 15:42] VITALS: BP 128/76; PULSE 61; TEMP 36.9; O2SAT 93
[2018-01-13 16:22] VITALS: O2SAT 93
--- NOTE | 2018-01-13 18:16 | Progress Note ---
Medicine Progress Note Date & Time of Visit: Jan 13, 2018 at 16:55. Subjective Pt was seen and examined Lying in bed with no distress with daughter at bedside Pt is hard to hear and with dementia No episode of vomiting since admitted Tolerated clear liquid diet Denies any chest pain, palpitation and SOB Objective Last 8 Hrs Date Time Temp Pulse Resp B/P (MAP) Pulse Ox O2 Delivery O2 Flow Rate FiO2 01/13/18 15:42 36.9 61 16 128/76 (93) 93 Room Air 01/13/18 11:31 36.3 61 20 101/68 (79) 96 Room Air Physical Exam: General- No acute distress Head- atraumatic Eyes- PERRL, EOMI ENT- oropharynx clear, decrease hearing function Neck- supple, no JVD Lungs- No wheezing Heart- regular rhythm; no murmur Abdomen- normal bowel sounds, soft Extremities- no calf tenderness Neuro- alert, oriented, PERRL, EOMI Skin- warm & dry Laboratory Results: Last 24 Hours Test 01/12/18 17:11 01/13/18 05:23 Hemoglobin 13.8 g/dL 12.8 g/dL Hematocrit 40.3 % 37.6 % White Blood Count 12.94 K/uL Red Blood Count 3.99 M/uL Mean Corpuscular Volume 94.2 fL Mean Corpuscular Hemoglobin 32.1 pg Mean Corpuscular Hemoglobin Concent 34.0 g/dl Platelet Count 155 K/uL Mean Platelet Volume 10.1 fL Neutrophils (%) (Auto) 78.2 % Lymphocytes (%) (Auto) 10.5 % Monocytes (%) (Auto) 9.1 % Eosinophils (%) (Auto) 1.6 % Basophils (%) (Auto) 0.2 % Neutrophils # (Auto) 10.12 K/uL Lymphocytes # (Auto) 1.36 K/uL Monocytes # (Auto) 1.18 K/uL Eosinophils # (Auto) 0.21 K/uL Basophils # (Auto) 0.02 K/uL RDW Standard Deviation 50.8 fL RDW Coefficient of Variation 14.8 % Immature Granulocyte % (Auto) 0.4 % Immature Granulocyte # (Auto) 0.05 K/uL Sodium Level 142 mmol/L Potassium Level 3.6 mmol/L Chloride Level 110 mmol/L Carbon Dioxide Level 26 mmol/L Anion Gap 6.0 mmol/L Blood Urea Nitrogen 14 mg/dl Creatinine 0.93 mg/dl Est Creatinine Clear Calc Drug Dose 31.5 ml/min Estimated GFR () 64.5 Estimated GFR (Non- 55.6 BUN/Creatinine Ratio 15.2 Random Glucose 86 mg/dl Calcium Level 8.3 mg/dl Assessment & Plan Pt is 87 y/o F with PMH Alzheimer dementia presented to ER with c/o brown vomiting. History obtained from family and caregiver as pt unable to give history. Patient's reports this morning woke up and found patient in bed covered with brown colored emesis with black flecks. Coffee Ground Emesis Colitis CT abdomen on admission nonspecific colitis involving components of the transverse, descending and sigmoid colonic regions, with mild reactive small bowel ileus. Hbg 15 on admission, dropped to 12 today KUB done today showed no radiographic evidence of bowel obstruction or ileus allowing for the paucity of small bowel gas. No signs of bleeding No vomiting since admission Tolerated clear liquid diet Continue IVF and antibiotic GI on board Plan for EGD in am Will make NPO after midnight Clinically improved UTI WBC on admission 17K, trending down to 12.9 today Urine cx grew gram negative bacilli On Zosyn IV Will consider to deescalate abx Follow up final urine cx Monitor CBC ALZHEIMER DEMENTIA At baseline as per daughter Continue aricept H/O HTN stable DVT Prophylaxis SCDs Code Status FULL CODE Current Inpatient Medications: Current Inpatient Medications Medications (Trade) Dose Ordered Sig/Tiarra Route Start Time Stop Time Status Last Admin Dose Admin Ioversol (Optiray 320) 100 ml UD PRN IV 01/12/18 11:45 01/16/18 11:44 Pantoprazole Sodium 40 mg/ Syringe 10 ml @ 5 mls/min DAILY@21 IV 01/12/18 21:00 02/11/18 20:59 01/13/18 08:21 5 MLS/MIN Acetaminophen (Tylenol Tab) 650 mg Q4H PRN PO 01/12/18 16:00 02/11/18 15:59 Ondansetron HCl (Zofran Inj) 4 mg Q6H PRN IV 01/12/18 16:00 02/11/18 15:59 Nitroglycerin (Nitrostat Tab) 0.4 mg UD PRN SL 01/12/18 16:00 02/11/18 15:59 Miscellaneous Information (Consult) 1 ea UD PRN N/A 01/12/18 16:30 02/11/18 16:29 Sodium Chloride 1,000 ml @ 80 mls/hr [id number] IV 01/12/18 16:00 02/11/18 15:59 01/13/18 16:14 80 MLS/HR Donepezil HCl (Aricept Tab) 5 mg DAILY PO 01/13/18 09:00 02/12/18 08:59 01/13/18 08:20 5 MG Piperacillin Sod/ Tazobactam Sod 3.375 gm/Dextrose 115 ml @ 28.75 mls/ hr Q8H IV 01/13/18 00:00 01/18/18 00:00 01/13/18 16:14 28.75 MLS/HR
[2018-01-13 23:08] VITALS: BP 124/73; PULSE 56; TEMP 36.4; O2SAT 92
[2018-01-14] MEDS: SODIUM CHLORIDE 0.9% 1000ML 1,000 ML IV SCH (00:05)
[2018-01-14] MEDS: PIPERACILL/TAZOBAC IV 3.375 GM in D5W 100ML IV SCH ×2 (00:05→08:15)
[2018-01-14] MEDS ORDERED: HALOPERIDOL LACTATE 5 MG/ML 1 ML VIAL IM PRN (01:30)
[2018-01-14] MEDS ORDERED: HALOPERIDOL 1 MG TAB PO PRN (01:30)
[2018-01-14 07:03] LABS: HEMATOCRIT 37.5 % (37-47); HEMOGLOBIN 12.5 g/dL (12.0-16.0); MEAN CELL VOLUME 93.5 fL (80-100); MEAN CORPUSCULAR HEMOGLOBIN 31.2 pg (25-34); MEAN CORPUSCULAR HGB CONC 33.3 g/dl (32-36); MEAN PLATELET VOLUME 10.5 fL (7.4-10.4); PLATELET COUNT 155 K/uL (130-400); RED CELL DISTRIBUTION WIDTH CV 14.4 % (11.5-14.5); WHITE BLOOD COUNT 9.78 K/uL (4.8-10.8)
[2018-01-14 07:26] VITALS: BP 131/69; PULSE 64; TEMP 36.9; O2SAT 90
[2018-01-14 07:35] LABS: CREATININE 0.64 mg/dl (0.60-1.20)
[2018-01-14] MEDS: PANTOprazole INJ 40 MG in SYRINGE 0 ML IV SCH (08:16)
[2018-01-14] MEDS: DONEPEZIL HCL 5 MG TAB PO SCH (08:26)
--- NOTE | 2018-01-14 10:51 | Progress Note ---
Progress Note Date of Service Jan 14, 2018. (Heather Brar CRNP) Progress Note Pt is a 87 y/o female admitted with coffee ground emesis. She also has Klebsiella UTI currently on Zosyn IV. She hasn't had any more n/v, abd pain, nor BMs since admission. Blood counts remained normal. She is scheduled for EGD evaluation by Dr. Chowdary today, been NPO. VS, Labs reviewed. On exam, she is alert but confused only oriented to self. Caregiver at bedside says mental status is at pt's baseline. HR regular, no murmur or gallops; clear lungs bilaterally; Abd soft, non tender, BS present; No edema on 4 extremities. As pt is confused and unable to give consent, I spoke w pt's (Yusuf Sánchez - number in chart) about indication for EGD procedure today, also reviewed w him risks v benefits of the procedure. He would like to be present to give consent. He will arrive around noon. GI will give further recs after EGD today (Heather Brar, CORDELIA) I performed a history and physical examination of the patient, including specifically soft, nontender abdomen, I have discussed the patient's management with Heather Brar. Please refer to the Nurse's note for the documented findings and plan of care. (Maryuri Chowdary M.D.)
--- NOTE | 2018-01-14 11:25 | Progress Note ---
Medicine Progress Note Date & Time of Visit: Jan 14, 2018 at 11:15. Subjective Pt was seen and examined Sitting in bed with no distress with 1 to 1 sitter Confused as baseline Plan to get EGD today She wants to know when she can eats Denies any fever, palpitation and SOB Objective Last 8 Hrs Date Time Temp Pulse Resp B/P (MAP) Pulse Ox O2 Delivery O2 Flow Rate FiO2 01/14/18 07:26 36.9 64 18 131/69 (89) 90 Room Air Physical Exam: General- No acute distress Head- atraumatic Eyes- PERRL, EOMI ENT- oropharynx clear, decrease hearing function Neck- supple, no JVD Lungs- No wheezing Heart- regular rhythm; no murmur Abdomen- normal bowel sounds, soft Extremities- no calf tenderness Neuro- Confused, move all 4 extremities Skin- warm & dry Laboratory Results: Last 24 Hours Test 01/14/18 05:45 White Blood Count 9.78 K/uL Red Blood Count 4.01 M/uL Hemoglobin 12.5 g/dL Hematocrit 37.5 % Mean Corpuscular Volume 93.5 fL Mean Corpuscular Hemoglobin 31.2 pg Mean Corpuscular Hemoglobin Concent 33.3 g/dl RDW Standard Deviation 49.0 fL RDW Coefficient of Variation 14.4 % Platelet Count 155 K/uL Mean Platelet Volume 10.5 fL Creatinine 0.64 mg/dl Est Creatinine Clear Calc Drug Dose 47.4 ml/min Estimated GFR () 93.6 Estimated GFR (Non- 80.8 Assessment & Plan Pt is 87 y/o F with PMH Alzheimer dementia presented to ER with c/o brown vomiting. History obtained from family and caregiver as pt unable to give history. Patient's reports this morning woke up and found patient in bed covered with brown colored emesis with black flecks. Coffee Ground Emesis Colitis CT abdomen on admission nonspecific colitis involving components of the transverse, descending and sigmoid colonic regions, with mild reactive small bowel ileus. Hbg 15 on admission, dropped to 12 today KUB done today showed no radiographic evidence of bowel obstruction or ileus allowing for the paucity of small bowel gas. No signs of bleeding No vomiting since admission Tolerated clear liquid diet Continue IVF and antibiotic GI on board Plan for EGD in am Will make NPO after midnight Clinically improved 01/14 NPO for EGD this morning Continue IV PPI Continue gentle IVF for now, will d//c once diet advance Will add flagyl for GI coverage and change Zosyn to Rocephin UTI WBC on admission 17K, trending down to 12.9 today Urine cx positive for Klebsielleae Will changed IV zosyn to Rocephin IV Consider to change to Cefdinir oral on discharge Monitor CBC ALZHEIMER DEMENTIA At baseline as per daughter Continue aricept H/O HTN stable DVT Prophylaxis SCDs Code Status FULL CODE Disposition Plan for EGD today Current Inpatient Medications: Current Inpatient Medications Medications (Trade) Dose Ordered Sig/Tiarra Route Start Time Stop Time Status Last Admin Dose Admin Ioversol (Optiray 320) 100 ml UD PRN IV 01/12/18 11:45 01/16/18 11:44 Pantoprazole Sodium 40 mg/ Syringe 10 ml @ 5 mls/min DAILY@ IV 01/12/18 21:00 02/11/18 20:59 01/14/18 08:16 5 MLS/MIN Acetaminophen (Tylenol Tab) 650 mg Q4H PRN PO 01/12/18 16:00 02/11/18 15:59 Ondansetron HCl (Zofran Inj) 4 mg Q6H PRN IV 01/12/18 16:00 02/11/18 15:59 Nitroglycerin (Nitrostat Tab) 0.4 mg UD PRN SL 01/12/18 16:00 02/11/18 15:59 Miscellaneous Information (Consult) 1 ea UD PRN N/A 01/12/18 16:30 02/11/18 16:29 Sodium Chloride 1,000 ml @ 80 mls/hr [id number] IV 01/12/18 16:00 02/11/18 15:59 01/14/18 00:05 80 MLS/HR Donepezil HCl (Aricept Tab) 5 mg DAILY PO 01/13/18 09:00 02/12/18 08:59 01/14/18 08:26 5 MG Piperacillin Sod/ Tazobactam Sod 3.375 gm/Dextrose 115 ml @ 28.75 mls/ hr Q8H IV 01/13/18 00:00 01/18/18 00:00 01/14/18 08:15 28.75 MLS/HR Haloperidol (Haldol Tab) 2 mg Q4H PRN PO 01/14/18 01:30 02/13/18 01:29 01/14/18 02:21 2 MG Haloperidol Lactate (Haldol Inj) 2 mg Q2H PRN IM 01/14/18 01:30 02/13/18 01:29
[2018-01-14 14:57] VITALS: BP 129/80; PULSE 57; TEMP 37.1; O2SAT 92
[2018-01-14] MEDS ORDERED: PROPOFOL IV EMULSION 10 MG/ML 20 ML VIAL ONE (16:07)
[2018-01-14] MEDS ORDERED: LIDOCAINE HCL 2% 2 ML VIAL (20MG/ML) ONE (16:07)
--- NOTE | 2018-01-14 16:22 | GI REPORT ---
Patient Name: Aubrie Sánchez Procedure Date: 01/14/2018 4:12 PM Date of : 1930 Admit Type: Inpatient Age: 87 Gender: Female Attending MD: Maryuri Chowdary MD Procedure: Upper GI endoscopy Providers: Maryuri Chowdary MD Referring MD: Hermelindo VALDEZ Indications: Coffee-ground emesis Medicines: Monitored Anesthesia Care Complications: No immediate complications. Estimated Blood Loss: Estimated blood loss: none. Procedure: Pre-Anesthesia Assessment: - Prior to the procedure, a History and Physical was performed, and patient medications and allergies were reviewed. The patient is competent. The risks and benefits of the procedure and the sedation options and risks were discussed with the patient. All questions were answered and informed consent was obtained. Patient identification and proposed procedure were verified by the physician and the nurse in the procedure room. Mental Status Examination: alert and oriented. Airway Examination: normal oropharyngeal airway and neck mobility. Respiratory Examination: clear to auscultation. CV Examination: normal. ASA Grade Assessment: III - A patient with severe systemic disease. After reviewing the risks and benefits, the patient was deemed in satisfactory condition to undergo the procedure. The anesthesia plan was to use monitored anesthesia care (MAC). Immediately prior to administration of medications, the patient was re-assessed for adequacy to receive sedatives. The heart rate, respiratory rate, oxygen saturations, blood pressure, adequacy of pulmonary ventilation, and response to care were monitored throughout the procedure. The physical status of the patient was re-assessed after the procedure. After obtaining informed consent, the endoscope was passed under direct vision. Throughout the procedure, the patient's blood pressure, pulse, and oxygen saturations were monitored continuously. The scope was introduced through the mouth, and advanced to the second part of duodenum. The upper GI endoscopy was accomplished without difficulty. The patient tolerated the procedure well. Findings: LA Grade A (one or more mucosal breaks less than 5 mm, not extending between tops of 2 mucosal folds) esophagitis with no bleeding was found in the lower third of the esophagus. The lower third of the esophagus was significantly tortuous. A hiatal hernia was found. The proximal extent of the gastric folds (end of tubular esophagus) was 31 cm from the incisors. The hiatal narrowing was 35 cm from the incisors. The entire examined stomach was normal. The duodenal bulb and second portion of the duodenum were normal. Impression: - LA Grade A reflux esophagitis. - Tortuous esophagus. - Hiatal hernia. - Normal stomach. - Normal duodenal bulb and second portion of the duodenum. - No specimens collected. Recommendation: - Return patient to [facility] care. - Resume regular diet. - Follow an antireflux regimen. - Use Prilosec (omeprazole) 20 mg PO daily. - Recall GI if needed. Maryuri Chowdary MD 01/14/2018 4:21:50 PM This report has been signed electronically. Note Initiated On: 01/14/2018 4:12 PM Number of Addenda: 0 I attest to the content of the Intraoperative Record and orders documented therein, exceptions below {[id number]}
--- NOTE | 2018-01-14 16:48 | Anesthesiology Progress Note ---
Anesthesia Post Op Note Date & Time Jan 14, 2018 at 16:47 Vital Signs Pain Intensity: 0 Vital Signs Past 12 Hours Date Time Temp Pulse Resp B/P (MAP) Pulse Ox O2 Delivery O2 Flow Rate FiO2 01/14/18 16:45 49 18 135/70 (91) 95 Room Air 01/14/18 16:37 55 18 133/68 (89) 96 Room Air 01/14/18 16:22 37.3 51 18 119/74 (89) 95 Room Air 01/14/18 15:16 37.3 55 18 122/74 (90) 93 Room Air 01/14/18 14:57 37.1 57 20 129/80 (96) 92 Room Air 01/14/18 08:30 Room Air 01/14/18 07:26 36.9 64 18 131/69 (89) 90 Room Air Notes Mental Status: alert / awake / arousable, participated in evaluation Pt Amnestic to Procedure: Yes Nausea / Vomiting: adequately controlled Pain: adequately controlled Airway Patency, RR, SpO2: stable & adequate BP & HR: stable & adequate Hydration State: stable & adequate Anesthetic Complications: no major complications apparent
[2018-01-14] MEDS: CEFTRIAXONE SOD INJ 1000 MG in DEXTROSE 5% 50ML IV SCH ×2 (17:13→17:14)
[2018-01-14 17:18] VITALS: BP 157/84; PULSE 53; TEMP 36.5; O2SAT 96
[2018-01-14] MEDS ORDERED: NURSING VERBAL MED ORDER ONE (18:30)
--- NOTE | 2018-01-14 19:11 | Progress Note ---
Medicine Progress Note Date & Time of Visit: Jan 14, 2018 at 19:05. Subjective Pt was seen and examined Lying in bed with no distress with 1 to 1 sitter Just had EGD done Pt would like to go home today Denies any chest pain, palpitation, dizziness and SOB Objective Last 8 Hrs Date Time Temp Pulse Resp B/P (MAP) Pulse Ox O2 Delivery O2 Flow Rate FiO2 01/14/18 17:18 36.5 53 20 157/84 (108) 96 Room Air 01/14/18 16:45 49 18 135/70 (91) 95 Room Air 01/14/18 16:37 55 18 133/68 (89) 96 Room Air 01/14/18 16:22 37.3 51 18 119/74 (89) 95 Room Air 01/14/18 15:16 37.3 55 18 122/74 (90) 93 Room Air 01/14/18 14:57 37.1 57 20 129/80 (96) 92 Room Air Physical Exam: General- No acute distress Head- atraumatic Eyes- PERRL, EOMI ENT- oropharynx clear, decrease hearing function Neck- supple, no JVD Lungs- No wheezing Heart- regular rhythm; no murmur Abdomen- normal bowel sounds, soft Extremities- no calf tenderness Neuro- Confused, move all 4 extremities Skin- warm & dry Laboratory Results: Last 24 Hours Test 01/14/18 05:45 White Blood Count 9.78 K/uL Red Blood Count 4.01 M/uL Hemoglobin 12.5 g/dL Hematocrit 37.5 % Mean Corpuscular Volume 93.5 fL Mean Corpuscular Hemoglobin 31.2 pg Mean Corpuscular Hemoglobin Concent 33.3 g/dl RDW Standard Deviation 49.0 fL RDW Coefficient of Variation 14.4 % Platelet Count 155 K/uL Mean Platelet Volume 10.5 fL Creatinine 0.64 mg/dl Est Creatinine Clear Calc Drug Dose 47.4 ml/min Estimated GFR () 93.6 Estimated GFR (Non- 80.8 Assessment & Plan Pt is 87 y/o F with PMH Alzheimer dementia presented to ER with c/o brown vomiting. History obtained from family and caregiver as pt unable to give history. Patient's reports this morning woke up and found patient in bed covered with brown colored emesis with black flecks. Coffee Ground Emesis Colitis CT abdomen on admission nonspecific colitis involving components of the transverse, descending and sigmoid colonic regions, with mild reactive small bowel ileus. Hbg 15 on admission, dropped to 12 today KUB done today showed no radiographic evidence of bowel obstruction or ileus allowing for the paucity of small bowel gas. No signs of bleeding No vomiting since admission Tolerated clear liquid diet Continue IVF and antibiotic GI on board Plan for EGD in am Will make NPO after midnight Clinically improved 01/15 EGD done showed: esophagitis with no bleeding was found in the lower third of the esophagus. The lower third of the esophagus was significantly tortuous and hiatal hernia Advance diet as tolerated Will change abx to flagyl UTI WBC on admission 17K, trending down to 12.9 today Urine cx positive for Klebsielleae Abx changed to IV rocephin Will change to Cefdinir oral on discharge Monitor CBC ALZHEIMER DEMENTIA At baseline as per daughter Continue aricept H/O HTN stable DVT Prophylaxis SCDs Code Status FULL CODE Disposition Discharge home today Follow up with your PCP within 1 week Current Inpatient Medications: Current Inpatient Medications Medications (Trade) Dose Ordered Sig/Tiarra Route Start Time Stop Time Status Last Admin Dose Admin Ioversol (Optiray 320) 100 ml UD PRN IV 01/12/18 11:45 01/16/18 11:44 Acetaminophen (Tylenol Tab) 650 mg Q4H PRN PO 01/12/18 16:00 02/11/18 15:59 Ondansetron HCl (Zofran Inj) 4 mg Q6H PRN IV 01/12/18 16:00 02/11/18 15:59 Nitroglycerin (Nitrostat Tab) 0.4 mg UD PRN SL 01/12/18 16:00 02/11/18 15:59 Sodium Chloride 1,000 ml @ 80 mls/hr [id number] IV 01/12/18 16:00 02/11/18 15:59 01/14/18 00:05 80 MLS/HR Donepezil HCl (Aricept Tab) 5 mg DAILY PO 01/13/18 09:00 02/12/18 08:59 01/14/18 08:26 5 MG Haloperidol (Haldol Tab) 2 mg Q4H PRN PO 01/14/18 01:30 02/13/18 01:29 01/14/18 02:21 2 MG Haloperidol Lactate (Haldol Inj) 2 mg Q2H PRN IM 01/14/18 01:30 02/13/18 01:29 Ceftriaxone Sodium 1000 mg/ Dextrose 60 ml @ 120 mls/hr Q24H IV 01/14/18 14:00 01/18/18 13:59 01/14/18 17:13 120 MLS/HR Pantoprazole Sodium (Protonix Tab) 40 mg QAM PO 01/15/18 09:00 02/14/18 08:59
[2018-01-14] MEDS ORDERED: CEFD300C2 PO (19:17)
[2018-01-14] MEDS ORDERED: OMEP20CA9 PO (19:17)
[2018-01-14] MEDS ORDERED: METR-162 PO (19:17)
--- NOTE | 2018-01-14 19:21 | Discharge Instructions ---
Discharge Instructions Date of Service Jan 14, 2018. Admission Reason for Admission: Gi Bleed, Vomiting Discharge Discharge Diagnosis / Problem: Coffee Ground Emesis, Colitis, Urinary track infection Discharge Goals Goal(s): Decrease discomfort, Improve function, Improve disease control Activity Recommendations Activity Limitations: resume your previous activity (As tolerated) . Instructions / Follow-Up Instructions / Follow-Up Follow up with your primary care provider Dr. Baum in 1 week (Office will call you for the appointment tomorrow) Continue the course of antibiotic with Omnicef and Flagyl Soft diet and advance as tolerated Fall precaution Current Hospital Diet Patient's current hospital diet: Clear Liquid Diet Discharge Diet Recommended Diet: Low Sodium Diet (2gm Na) Procedures Procedures Performed: EGD Pending Studies Studies pending at discharge: no Medical Emergencies . Who to Call and When: Medical Emergencies: If at any time you feel your situation is an emergency, please call 911 immediately. . Non-Emergent Contact Non-Emergency issues call your: Primary Care Provider Call Non-Emergent contact if: temperature is above 101, you have any medication questions . . "Provider Documentation" section prepared by David Vanessa. .
[2018-01-14 19:25] VITALS: BP 157/84; PULSE 53; TEMP 36.5; O2SAT 96
--- NOTE | 2018-01-15 07:41 | Discharge Summary ---
Discharge Summary Date of Service Jan 15, 2018. Discharge Summary Admission Date: Jan 12, 2018 at 15:47 Discharge Date: Jan 14, 2018 Discharge Disposition: Home with services Principal Diagnosis: Coffee Ground Emesis Secondary Diagnoses/Problems: COLITIS ALZHEIMER DEMENTIA UTI HTN Procedures: EGD ABD/PELVIS IV CONTRAST ONLY CT DOSE: 368.44 mGycm HISTORY: Pain abd pain TECHNIQUE: Multiaxial CT images of the abdomen and pelvis were performed following the use of intravenous contrast. A dose lowering technique was utilized adhering to the principles of ALARA. COMPARISON STUDY: 08/13/2011 FINDINGS: Fixed hiatal hernia. Bibasilar interstitial change considered nonspecific. Liver spleen appear unremarkable. Kidneys again demonstrate multiple parapelvic cysts which are unchanged. Exophytic cystic nodule projecting posteriorly from the pancreatic body is unaltered. The bladder is distended. There are findings of moderate wall edema of the sigmoid as well as descending colonic region. This is not well seen within the a sending or transverse colon, or are seen to a diminished extent. IMPRESSION: 1. Nonspecific colitis involving components of the transverse, descending and sigmoid colonic regions. 2. Mild reactive small bowel ileus. 3. Chronic mid to distal descending colonic diverticulosis 4. Multiple bilateral renal parapelvic cysts unchanged. 5. Fixed hiatal hernia increased in size from the prior study with interstitial and basilar bronchovascular prominence. The above report was generated using voice recognition software. It may contain grammatical, syntax or spelling errors. Electronically signed by: Srini Moore M.D. 01/12/2018 1:35 PM Dictated Date/Time: 01/12/2018 1:28 PM HEAD WITHOUT CONTRAST (CT) CLINICAL HISTORY: 87 years-old Female presenting with reported NUNES. TECHNIQUE: Multidetector CT imaging of the head was performed without the use of intravenous contrast. IV contrast: None. A dose lowering technique was used consistent with the principles of ALARA (as low as reasonably achievable). COMPARISON: Brain MR from 2013. CT DOSE (mGy.cm): The estimated cumulative dose is 1577.26 mGycm. FINDINGS: Computer Laboratory Technician topogram: Unremarkable. Proportional ventricular and sulcal prominence, likely age-related parenchymal volume loss. Periventricular and subcortical white matter hypoattenuation, nonspecific but likely indicative of chronic small vessel ischemic change. Old left cerebellar hemispheric infarct. No mass effect or midline shift. No hemorrhage or acute territorial infarct. No extra-axial fluid collection. Trace mucosal thickening in the right maxillary sinus. Calvarium intact. IMPRESSION: 1. Chronic small vessel ischemic change. No acute intracranial abnormality. Electronically signed by: Jorden Pacheco M.D. 01/12/2018 4:00 PM Dictated Date/Time: 01/12/2018 3:56 PM KUB CLINICAL HISTORY: 87 years-old Female presenting with small bowel ileus. TECHNIQUE: Single supine view of the abdomen was obtained. COMPARISON: CT from 01/12/2018 and plain radiograph from 01/17/2014. FINDINGS: Paucity of small bowel gas, nonspecific. Allowing for this, nonobstructive bowel gas pattern. No gross pneumoperitoneum. Excreted contrast noted in the urinary bladder. No radiographic evidence of renal or ureteral calculi. Atherosclerotic calcifications noted. Degenerative change and scoliotic curvature of the lumbar spine. Postsurgical changes of total right hip arthroplasty. Osteopenia suspected. IMPRESSION: 1. No radiographic evidence of bowel obstruction or ileus allowing for the paucity of small bowel gas. Electronically signed by: Jorden Pacheco M.D. 01/13/2018 8:21 AM Dictated Date/Time: 01/13/2018 8:15 AM CHEST ONE VIEW PORTABLE CLINICAL HISTORY: Leucocytosis COMPARISON STUDY: Radiograph April 20, 2008. FINDINGS: Moderate cardiomegaly is noted. There is a hiatal hernia. Contrast within the collecting systems and ureters is from recent contrast-enhanced abdominal CT. No pneumothorax or pleural effusion is noted. Lung volumes are diminished. There is no consolidation to suggest pneumonia. There is no evidence for overt pulmonary edema. There is pulmonary vascular congestion. IMPRESSION: 1. Pulmonary vascular congestion without overt pulmonary edema. 2. Moderate cardiomegaly. 3. No consolidation to suggest pneumonia. Electronically signed by: Ted Lynch M.D. 01/12/2018 3:43 PM Dictated Date/Time: 01/12/2018 3:41 PM Consultations: GASTRO Medication Reconciliation New Medications: Cefdinir (Omnicef) 300 Mg Cap 1 CAP PO BID for 4 Days, #8 CAP Metronidazole (Flagyl) 500 Mg Tab 500 MG PO TID for 4 Days, #12 TAB Omeprazole (Prilosec) 20 Mg Cap 1 CAP PO DAILY for 30 Days, #30 CAP Continued Medications: Donepezil Hydrochloride (Donepezil Hcl) 5 Mg Tab 1 TAB PO DAILY for 30 Days, #30 TAB 5 Refills Admission Information HPI (per Admitting provider): Pt is 87 y/o F with PMH Alzheimer dementia presented to ER with c/o brown vomiting. History obtained from family and caregiver as pt unable to give history. Patient's reports this morning woke up and found patient in bed covered with brown colored emesis with black flecks. Denies any recent changes in patient's mental status, reports patient slowly increased dementia over the past several years, however patient is is usually pleasant and does not regularly have complaints. reports patient has been eating and drinking normally. states he and patient ate pork roast and cabbage last evening for dinner. reports he had mild abdominal discomfort during the middle of the night which he related to over eating, but no vomiting or diarrhea. Report that patient has caregiver and nurse coming twice daily. Caregiver states 2 days ago patient stated that she was dizzy. States yesterday she said her head hurt. No known syncopal episodes or falls or head injuries. Denies NSAID or alcohol use. Denies recent antibiotic use. Denies hx known gastritis/ulcer. Unsure of last colonoscopy, thinks been greater than 10 years ago. Denies known colon problems. Family and caregiver deny any noted fever/chills, diaphoresis, diarrhea, constipation, melena, hematochezia, noted SOB, cough, choking, extremity edema, rashes, increased urination, hematuria. Reported steady decline in her weight over past several years. Further ROS not able to be obtained secondary to pt's mental status Physical Exam (per Admitting): General Appearance: WD/WN, no apparent distress Head: normocephalic, atraumatic Eyes: normal inspection, PERRL, sclerae normal ENT: + pertinent finding (hard of hearing, mucous membranes moist) Neck: supple, trachea midline Respiratory/Chest: no respiratory distress, no accessory muscle use, + decreased breath sounds (throughout) Cardiovascular: regular rate, rhythm Abdomen/GI: normal bowel sounds, non tender (no apparent tenderness to palpation), soft Back: no CVA tenderness Extremities/Musculoskelatal: normal inspection, normal capillary refill, no pedal edema Neurologic/Psych: alert (pleasantly confused, oriented to person) Skin: warm/dry Hospital Course Pt is 87 y/o F with PMH Alzheimer dementia presented to ER with c/o brown vomiting. History obtained from family and caregiver as pt unable to give history. Patient's reports this morning woke up and found patient in bed covered with brown colored emesis with black flecks. Coffee Ground Emesis Colitis CT abdomen on admission nonspecific colitis involving components of the transverse, descending and sigmoid colonic regions, with mild reactive small bowel ileus. Hbg 15 on admission, dropped to 12 today KUB done today showed no radiographic evidence of bowel obstruction or ileus allowing for the paucity of small bowel gas. No signs of bleeding No vomiting since admission Tolerated clear liquid diet Continue IVF and antibiotic GI on board Plan for EGD in am Will make NPO after midnight Clinically improved 01/15 EGD done showed: esophagitis with no bleeding was found in the lower third of the esophagus. The lower third of the esophagus was significantly tortuous and hiatal hernia Advance diet as tolerated Will change abx to flagyl UTI WBC on admission 17K, trending down to 12.9 today Urine cx positive for Klebsielleae Abx changed to IV rocephin Will change to Cefdinir oral on discharge Monitor CBC ALZHEIMER DEMENTIA At baseline as per daughter Continue aricept H/O HTN stable DVT Prophylaxis SCDs Code Status FULL CODE Disposition Discharge home today Follow up with your PCP within 1 week Total time spent on discharge = 35 minutes This includes examination of the patient, discharge planning, medication reconciliation, and communication with other providers. Discharge Instructions Discharge Instructions Date of Service Jan 14, 2018. Admission Reason for Admission: Gi Bleed, Vomiting Discharge Discharge Diagnosis / Problem: Coffee Ground Emesis, Colitis, Urinary track infection Discharge Goals Goal(s): Decrease discomfort, Improve function, Improve disease control Activity Recommendations Activity Limitations: resume your previous activity (As tolerated) . Instructions / Follow-Up Instructions / Follow-Up Follow up with your primary care provider Dr. Baum in 1 week (Office will call you for the appointment tomorrow) Continue the course of antibiotic with Omnicef and Flagyl Soft diet and advance as tolerated Fall precaution Current Hospital Diet Patient's current hospital diet: Clear Liquid Diet Discharge Diet Recommended Diet: Low Sodium Diet (2gm Na) Procedures Procedures Performed: EGD Pending Studies Studies pending at discharge: no Medical Emergencies . Who to Call and When: Medical Emergencies: If at any time you feel your situation is an emergency, please call 911 immediately. . Non-Emergent Contact Non-Emergency issues call your: Primary Care Provider Call Non-Emergent contact if: temperature is above 101, you have any medication questions . . "Provider Documentation" section prepared by David Vanessa. . Additional Copies To Hermelindo Baum D.O.
[2018-01-15] MEDS ORDERED: PANTOprazole SOD 40 MG TAB PO SCH (09:00)
== END 2018-01-14 20:00 | disposition home health service (06) | DRG 389 ==
LOC: C.EDB 10:55 → C.MED 15:47 → ENRESERV 16:04 → C.MED 01-14 01:07
PROVIDERS: ADMIT Internal Medicine; ATTEND Internal Medicine
PROC: 0DJ08ZZ Inspection of Upper Intestinal Tract, Via Natural or Artificial Opening Endoscopic (ICD-10-PCS; principal; 2018-01-14 15:08)
DX: K56.7 Ileus, unspecified (principal); K92.0 Hematemesis; N39.0 Urinary tract infection, site not specified; K52.9 Noninfective gastroenteritis and colitis, unspecified; K20.9 Esophagitis, unspecified; G30.9 Alzheimer's disease, unspecified; F02.80 Dementia in other diseases classified elsewhere, unspecified severity, without behavioral disturbance, psychotic disturbance, mood disturbance, and anxiety; M81.0 Age-related osteoporosis without current pathological fracture; Z82.0 Family history of epilepsy and other diseases of the nervous system; I10 Essential (primary) hypertension; B96.89 Other specified bacterial agents as the cause of diseases classified elsewhere

== ENCOUNTER 2018-09-01 19:12 | Inpatient (IN) ==
[2018-09-01] MEDS ORDERED: SODIUM CHLORIDE 0.9% 1000ML 1,000 ML IV SCH ×2 (19:30→21:45)
[2018-09-01] MEDS ORDERED: MoRPHine SULFATE 4 MG/ML 1 ML CARP\\VIAL IV STA ×2 (19:31→20:54)
--- NOTE | 2018-09-01 19:59 | XRay Report ---
XR hip LT 2-3V w pelvis CLINICAL HISTORY: Left hip pain. Fall. COMPARISON STUDY: FINDINGS: Left femoral neck fracture demonstrating 2 cm of superior displacement. The femoral head re alonso within the acetabulum. Prior right hip hemiarthroplasty. The visualized pelvic bones are intact . IMPRESSION: Displaced left femoral neck fracture. Electronically signed by: Dash Gage M.D. 09/01/2018 7:58 PM
--- NOTE | 2018-09-01 20:02 | XRay Report ---
XR chest 1V portable HISTORY: fall COMPARISON: None. FINDINGS: There are low lung volumes. The heart is mildly enlarged. Retrocardiac density favors a sma ll hiatus hernia but is technically indeterminate. Mild diffuse interstitial thickening. This may be chronic. No focal lung consolidations to suggest pneumonia. No pleural effusions. No pneumothorax. IMPRESSION: 1. Mild diffuse interstitial thickening. This may be chronic. 2. Nonspecific small retrocardiac density. Statistically this represents a hiatus hernia. Electronically signed by: Dash Gage M.D. 09/01/2018 8:00 PM
[2018-09-01 20:18] LABS: Basophils # (auto) 0.04 K/uL (0-0.2); Basophils % (auto) 0.2 %; Eosinophils # (auto) 0.11 K/uL (0-0.5); Eosinophils % (auto) 0.6 %; Hematocrit (blood only) 44.8 % (37-47); Hemoglobin 15.7 g/dL (12.0-16.0); Immature Granulocytes # (auto) 0.18 K/uL (0.00-0.02); Immature Granulocytes % (auto) 1.1 %; Lymphocytes # (auto) 1.33 K/uL (1.2-3.4); Lymphocytes % (auto) 7.8 %; Mean Corpuscular Volume 92.6 fL (80-100); Mean Platelet Volume 10.7 fL (7.4-10.4); Monocytes # (auto) 1.16 K/uL (0.11-0.59); Monocytes % (auto) 6.8 %; Neutrophils # (auto) 14.19 K/uL (1.4-6.5); Neutrophils % (auto) 83.5 %; Platelet Count 183 K/uL (130-400); RDW Standard Deviation 50.3 fL (36.4-46.3); Red Blood Count 4.84 M/uL (4.2-5.4); White Blood Count 17.01 K/uL (4.8-10.8)
--- NOTE | 2018-09-01 20:21 | CT Scan Report ---
HEAD CT NONCONTRAST CT DOSE: 614.27 mGy.cm HISTORY: Confusion. fall TECHNIQUE: Multiaxial CT images of the head were performed without the use of intravenous contrast. A utomated exposure control was utilized for this study. A dose lowering technique was utilized adheri ng to the principles of ALARA. Comparison: Head CT 01/12/2018. Findings: The paranasal sinuses and mastoid air cells are clear. The calvarium and skull base are int act. There is no mass, hematoma, midline shift, acute infarct. White matter hypodensity is nonspecifi c but suggestive of microvascular ischemic change. The ventricles and sulci demonstrate mild age-rela chrystal involutional changes. Old left cerebellar infarct, unchanged. Impression: No significant change compared to the prior study. No acute intracranial abnormality. Electronically signed by: Dash Gage M.D. 09/01/2018 8:19 PM
[2018-09-01 21:16] LABS: INR 1.1 (0.9-1.1); Prothrombin Time 10.8 Seconds (9.0-12.0)
[2018-09-01 21:23] LABS: Alanine Aminotransferase 20 U/L (12-78); Albumin Level 3.6 gm/dl (3.4-5.0); Aspartate Aminotransferase 17 U/L (15-37); BUN Creatinine Ratio 29.7 (10-20); Blood Urea Nitrogen 22 mg/dl (7-18); Calcium 8.7 mg/dl (8.5-10.1); Carbon Dioxide 20 mmol/L (21-32); Chloride 114 mmol/L (98-107); Est GFR (African American) 83.1; Est GFR (Non-African American) 71.7; Glucose 118 mg/dl (70-99); Potassium 3.4 mmol/L (3.5-5.1); Sodium 144 mmol/L (136-145)
[2018-09-01 21:28] LABS: Albumin Globulin Ratio 1.2 (0.9-2); Alkaline Phosphatase 63 U/L (45-117); Bilirubin,Total 0.5 mg/dl (0.2-1); Creatine Kinase 71 U/L (26-192); Globulin 3.1 gm/dl (2.5-4.0); Total Protein 6.7 gm/dl (6.4-8.2); Troponin I < 0.015 ng/ml (0-0.045)
[2018-09-01] MEDS ORDERED: POTASSIUM CHLORIDE / WTR 10 MEQ/100 ML PLCT IV STA (21:43)
--- NOTE | 2018-09-01 21:50 | History & Physical Report ---
Date of Service September 01, 2018 Assessment & Plan (1) Hip fracture, left: -Admit to [facility] -Patient presenting from home after a mechanical fall -In the ED, found to have a displaced left femoral neck fracture -troponin negative, EKG demonstrates an unchanged right bundle branch block -WBC 17 K; no obvious signs of infection at this time (U/A pending), possible stress response of fall/fracture -CT head negative for acute intracranial findings -Orthopedics consult, Dr. Newton notified -At this time, patient is an acceptable risk to proceed with surgery, no further workup needed (2) Hypokalemia: -K+ 3.4 -Replace, follow -Check MG plus (3) Alzheimer's dementia: (4) DVT prophylaxis: -SCDs due to likely surgical procedure tomorrow History of Present Illness Chief Complaint: Fall, Left Hip Pain Primary Care Provider: Hermelindo Baum DO 88-year-old female who presents to the ED after having a fall and subsequent left hip pain at home today. Patient has underlying Alzheimer's and also received pain medication in the ED, history is unobtainable for her at this time. History is obtained by and caregiver who are at the bedside. reports that he was getting a drink for the patient and when he went to handed to her, he placed his hand on her shoulder and patient took a step forward and then fell to the ground. There was no associated loss of consciousness nor did patient strike her head. Caregiver and reports the patient has been doing well recently. She has chronic exertional shortness of breath which is unchanged from baseline. She also has chronic low back pain with which makes it difficult for her to ambulate at times. No reports of chest pain. No lightheadedness, dizziness, diaphoresis, syncopal events. No reports of abdominal pain, nausea, vomiting, diarrhea. No fevers or chills. No urinary symptoms. In the ED, patient is found to have a displaced left femoral neck fracture. Labs show WBC 17 K K+ 3.4, mildly elevated BUN at 22. Initial troponin is negative, EKG demonstrates an unchanged right bundle branch block. Allergies Allergy/AdvReac Type Severity Reaction Status Date / Time No Known Allergies Allergy Verified 09/01/18 20:31 Home Medications Home Medications Medication Instructions Recorded Confirmed Type No Known Home Medications 09/01/18 09/01/18 History Past Med/Surg History Medical History Hip fracture, right (Resolved) s/p repair C. difficile colitis (Resolved) Right patella fracture (Resolved) Ovarian cyst (Resolved) Hypertension (Chronic) Alzheimer's dementia (Chronic) Chronic lumbar pain (Chronic) Lumbar compression fracture (Resolved) Hx of right bundle branch block (Chronic) Surgical History H/O oophorectomy (Chronic) Social History Preferred Language: Danish Communication Ability: Impaired Communication Ability Comment: very HUGHES, tells this RN one has to "almost yell" for pt to hear Financial Aids Officer Required: No Beliefs That Will Affect Care: None marital status: Current Living Situation: Spouse and Other Current Living Situation Comment: caregivers 7-8 hours/day Other Information That Helps Us Care for You: No Feels Safe at Home: Yes Safety Concerns: Feels Safe At This Time Smoking Status: Former smoker Hx Alcohol Use: Yes Hx Substance Use: No Review of Systems ROS per HPI, all other systems reviewed and negative Physical Exam Vital Signs (Past 24 Hours): Last Vital Signs Temp 36 C L 09/01/18 19:23 Pulse 78 09/01/18 21:00 Resp 25 H 09/01/18 21:00 BP 153/90 H 09/01/18 21:00 Pulse Ox 91 09/01/18 21:00 Constitutional: WD/WN, vitals as above Eyes: PERRL, conjunctivae normal, anicteric sclerae ENMT: external ear and nose normal, oropharynx normal Respiratory: normal respiratory effort and + respiratory distress Auscultation: + diminished lung sounds (BL bases) Cardiovascular: Rate/Rhythm: regular rate and regular rhythm Vessels: normal peripheral pulses Extremities: no edema Gastrointestinal (Abdomen): normal bowel sounds, soft, nontender, no hepatosplenomegaly Musculoskeletal: Extremities: + leg length discrepancy (left leg shortened) and + leg externally rotated (left); no cyanosis and no clubbing Skin: no rashes, warm and dry Neurologic: PERRL, EOMI, accommodation nl, no face palsy, no dysarthria Psychiatric: Orientation: alert (follows simple comands); + not oriented x 3 (responds when name is called however does not answer questions) Results & Data Laboratory Results Laboratory Last Values WBC 17.01 K/uL (4.8-10.8) H 09/01/18 20:00 RBC 4.84 M/uL (4.2-5.4) 09/01/18 20:00 Hgb 15.7 g/dL (12.0-16.0) 09/01/18 20:00 Hct 44.8 % (37-47) 09/01/18 20:00 MCV 92.6 fL (80-100) 09/01/18 20:00 MCH 32.4 pg (25-34) 09/01/18 20:00 MCHC 35.0 g/dL (32-36) 09/01/18 20:00 RDW Std Deviation 50.3 fL (36.4-46.3) H 09/01/18 20:00 RDW Coeff of Kelly 15.0 % (11.5-14.5) H 09/01/18 20:00 Plt Count 183 K/uL (130-400) 09/01/18 20:00 MPV 10.7 fL (7.4-10.4) H 09/01/18 20:00 Immature Gran % (Auto) 1.1 % 09/01/18 20:00 Neut % (Auto) 83.5 % 09/01/18 20:00 Lymph % (Auto) 7.8 % 09/01/18 20:00 Phillips % (Auto) 6.8 % 09/01/18 20:00 Eos % (Auto) 0.6 % 09/01/18 20:00 Baso % (Auto) 0.2 % 09/01/18 20:00 Immature Gran # (Auto) 0.18 K/uL (0.00-0.02) H 09/01/18 20:00 Neut # (Auto) 14.19 K/uL (1.4-6.5) H 09/01/18 20:00 Lymph # (Auto) 1.33 K/uL (1.2-3.4) 09/01/18 20:00 Phillips # (Auto) 1.16 K/uL (0.11-0.59) H 09/01/18 20:00 Eos # (Auto) 0.11 K/uL (0-0.5) 09/01/18 20:00 Baso # (Auto) 0.04 K/uL (0-0.2) 09/01/18 20:00 PT 10.8 Seconds (9.0-12.0) 09/01/18 20:44 INR 1.1 (0.9-1.1) 09/01/18 20:44 Sodium 144 mmol/L (136-145) 09/01/18 20:44 Potassium 3.4 mmol/L (3.5-5.1) L 09/01/18 20:44 Chloride 114 mmol/L (98-107) H 09/01/18 20:44 Carbon Dioxide 20 mmol/L (21-32) L 09/01/18 20:44 Anion Gap 10.0 (3-11) 09/01/18 20:44 BUN 22 mg/dl (7-18) H 09/01/18 20:44 Creatinine 0.75 mg/dl (0.6-1.2) 09/01/18 20:44 Est Cr Clr Drug Dosing Not Reportable 09/01/18 20:44 Est GFR ( Amer) 83.1 09/01/18 20:44 Est GFR (Non-Af Amer) 71.7 09/01/18 20:44 BUN/Creatinine Ratio 29.7 (10-20) H 09/01/18 20:44 Glucose 118 mg/dl (70-99) H 09/01/18 20:44 Calcium 8.7 mg/dl (8.5-10.1) 09/01/18 20:44 Magnesium 2.2 mg/dl (1.8-2.4) 09/01/18 20:44 Total Bilirubin 0.5 mg/dl (0.2-1) 09/01/18 20:44 AST 17 U/L (15-37) 09/01/18 20:44 ALT 20 U/L (12-78) 09/01/18 20:44 Alkaline Phosphatase 63 U/L (45-117) 09/01/18 20:44 Total Creatine Kinase 71 U/L (26-192) 09/01/18 20:44 Troponin I < 0.015 ng/ml (0-0.045) 09/01/18 20:44 Total Protein 6.7 gm/dl (6.4-8.2) 09/01/18 20:44 Albumin 3.6 gm/dl (3.4-5.0) 09/01/18 20:44 Globulin 3.1 gm/dl (2.5-4.0) 09/01/18 20:44 Albumin/Globulin Ratio 1.2 (0.9-2) 09/01/18 20:[address] Impression: No significant change compared to the prior study. No acute intracranial abnormality. HIP/PELVIS XR IMPRESSION: Displaced left femoral neck fracture. CXR IMPRESSION: 1. Mild diffuse interstitial thickening. This may be chronic. 2. Nonspecific small retrocardiac density. Statistically this represents a hiatus hernia. Code Status & VTE Plan Code Status Full code for now, needs to be discussed with patient's daughter. VTE Prophylaxis Plan VTE Prophylaxis will be ordered: Yes Supervising Physician Co-Signing Physician Notes HISTORY: Record reviewed. Patient interviewed and examined. Care coordinated with CORDELIA Murillo. Please refer to her documentation for patient's history. Briefly, 88 YO F with dementia. Lives at home with her with the assistance of a caregiver. Suffered a mechanical fall today and fractured her left hip. indicates that she appeared to be well before the fall. Pt unable to offer any history because of dementia. EXAM: General- no acute distress Lungs- clear to auscultation; no respiratory distress Cardiovascular- RRR; no murmur; no gallop; no JVD; no pretibial edema Abdomen- + bowel sounds, soft, nontender Extremities- no cyanosis; no calf tenderness Neuro- confused, minimally verbal. Skin- warm & dry DATA: K 3.4, BUN 22, creat 0.75. Hgb 15.7, WBC 17,010. Other lab studies as noted. Chest x-ray reviewed and demonstrated mild ? chronic interstitial changes and suspected hiatal hernia. CT head- no acute findings. X-ray left hip- displaced left femoral neck fracture. EKG performed at 2051 reviewed and demonstrated NSR at 75 / minute, RBBB, baseline artifact. ASSESSMENT AND PLAN: LEFT HIP FRACTURE Management per Geriatric Hip Fracture protocol LEUKOCYTOSIS No fever or signs of infection. No infiltrates on CXR. UA shows 5-10 WBC's, 1+ bacteria, but many epithelial cells. May or may not have UTI. IV ceftriaxone pending urine culture results. DEMENTIA Monitor for delirium. Please refer to HE[employer] HEL[employer] Mya's documentation for discussion of other issues.
[2018-09-01] MEDS ORDERED: MoRPHine SULFATE 2 MG/ML CARP IV PRN (23:11)
[2018-09-01] MEDS ORDERED: BISACODYL 10 MG SUPP PR PRN (23:11)
[2018-09-01] MEDS ORDERED: MAGNESIUM HYDROXIDE SUSP 30 ML UDC PO PRN (23:11)
[2018-09-01] MEDS ORDERED: ACETAMINOPHEN 325 MG TAB PO PRN (23:11)
[2018-09-01] MEDS ORDERED: SOD PHOSPHATE/SOD BIPHOSPHATE ENEMA 132 ML BTL PR PRN (23:11)
[2018-09-01] MEDS ORDERED: NALOXONE HCL 0.4 MG/1 ML VIAL/CARP IV PRN (23:11)
--- NOTE | 2018-09-02 00:12 | Emergency Department Note ---
Entered by Ilda Alegre acting as a scribe for Lang Srinivasan DO History of Present Illness General Chief complaint: Fall Time Seen by Provider: 09/01/18 19:15 Source: family () Mode of arrival: EMS Limitations: altered mental status History of Present Illness Provider complaint: fall Onset (ago): hour(s) (LOOM [employer]TER FOURDRINIER) Location: head Pain Consistency: + other (episode) Quality: + other (fall) Associated symptoms: no syncope The patient is an 88 year old female who presents to the Emergency Room via EMS following a fall that occurred prior to arrival. The reports that the patient stood up and was walking towards the kitchen when she suddenly tripped and fell on her left side. He denies her hitting her head or losing consciousness. He states that the patient has a history of Alzheimers. Per , the patient is normally not talkative and appears to be at baseline. Pain is significantly worsened with movement of the left hip. Home Medications Home Medications Medication Instructions Recorded Confirmed Type No Known Home Medications 09/01/18 09/01/18 History Allergies Allergy/AdvReac Type Severity Reaction Status Date / Time No Known Allergies Allergy Verified 09/01/18 20:31 Past Med/Surg History Medical History Hip fracture, right (Resolved) s/p repair C. difficile colitis (Resolved) Right patella fracture (Resolved) Ovarian cyst (Resolved) Hypertension (Chronic) Alzheimer's dementia (Chronic) Chronic lumbar pain (Chronic) Lumbar compression fracture (Resolved) Hx of right bundle branch block (Chronic) Surgical History H/O oophorectomy (Chronic) Social History Preferred Language: Vietnamese Communication Ability: Impaired Communication Ability Comment: very LAC COURTE OREILLES, tells this RN one has to "almost yell" for pt to hear [facility] Clerk Required: No Beliefs That Will Affect Care: None marital status: Current Living Situation: Spouse and Other Current Living Situation Comment: caregivers 7-8 hours/day Other Information That Helps Us Care for You: No Feels Safe at Home: Yes Safety Concerns: Feels Safe At This Time Smoking Status: Former smoker Hx Alcohol Use: Yes Hx Substance Use: No Review of Systems Other (HPI and ROS are both limited secondary to AMS. ) Physical Exam Vital Signs Vital Signs - 24 hr 09/01/18 19:20 09/01/18 19:23 09/01/18 19:25 Temperature 36 C L Temperature Source Oral Sepsis Recent Fever Within 48 Hours No Sepsis New/Unexplained Change in Mental Status No Sepsis Action Taken by Nursing No Action Required Pulse Rate 70 76 68 Pulse Rate [Finger] 76 Pulse Rate from SpO2 Sensor 70 68 Respiratory Rate 27 H 24 22 Blood Pressure 159/124 H 159/125 H Blood Pressure [Right Arm] 159/124 H Blood Pressure Mean 135 136 Blood Pressure Mean [Right Arm] 135 Pulse Oximetry 97 93 98 Oxygen Delivery Method Room Air Oxygen Flow Rate 09/01/18 19:31 09/01/18 19:40 09/01/18 19:50 Temperature Temperature Source Sepsis Recent Fever Within 48 Hours Sepsis New/Unexplained Change in Mental Status Sepsis Action Taken by Nursing Pulse Rate 72 73 79 Pulse Rate [Finger] Pulse Rate from SpO2 Sensor 72 74 79 Respiratory Rate 29 H 21 33 H Blood Pressure 158/107 H Blood Pressure [Right Arm] Blood Pressure Mean 124 Blood Pressure Mean [Right Arm] Pulse Oximetry 97 97 91 Oxygen Delivery Method Oxygen Flow Rate 09/01/18 20:01 09/01/18 20:14 09/01/18 20:20 Temperature Temperature Source Sepsis Recent Fever Within 48 Hours Sepsis New/Unexplained Change in Mental Status Sepsis Action Taken by Nursing Pulse Rate 73 79 122 H Pulse Rate [Finger] Pulse Rate from SpO2 Sensor 73 Respiratory Rate 24 44 H Blood Pressure 176/89 H Blood Pressure [Right Arm] Blood Pressure Mean 118 Blood Pressure Mean [Right Arm] Pulse Oximetry 94 Oxygen Delivery Method Oxygen Flow Rate 09/01/18 20:31 09/01/18 20:41 09/01/18 20:50 Temperature Temperature Source Sepsis Recent Fever Within 48 Hours Sepsis New/Unexplained Change in Mental Status Sepsis Action Taken by Nursing Pulse Rate 90 81 83 Pulse Rate [Finger] Pulse Rate from SpO2 Sensor Respiratory Rate 30 H 29 H 29 H Blood Pressure Blood Pressure [Right Arm] Blood Pressure Mean Blood Pressure Mean [Right Arm] Pulse Oximetry Oxygen Delivery Method Oxygen Flow Rate 09/01/18 20:58 09/01/18 21:00 09/01/18 21:01 Temperature Temperature Source Sepsis Recent Fever Within 48 Hours Sepsis New/Unexplained Change in Mental Status Sepsis Action Taken by Nursing Pulse Rate 74 78 75 Pulse Rate [Finger] 78 Pulse Rate from SpO2 Sensor 75 79 75 Respiratory Rate 24 26 H 19 Blood Pressure 169/87 H 153/90 H Blood Pressure [Right Arm] 153/90 H Blood Pressure Mean 114 111 Blood Pressure Mean [Right Arm] 111 Pulse Oximetry 93 91 91 Oxygen Delivery Method Room Air Oxygen Flow Rate 09/01/18 21:11 09/01/18 21:20 09/01/18 21:28 Temperature Temperature Source Sepsis Recent Fever Within 48 Hours Sepsis New/Unexplained Change in Mental Status Sepsis Action Taken by Nursing Pulse Rate 71 72 Pulse Rate [Finger] Pulse Rate from SpO2 Sensor 72 72 Respiratory Rate 29 H 19 Blood Pressure Blood Pressure [Right Arm] Blood Pressure Mean Blood Pressure Mean [Right Arm] Pulse Oximetry 97 95 Oxygen Delivery Method Nasal Cannula Oxygen Flow Rate 2 09/01/18 21:30 09/01/18 21:31 09/01/18 21:41 Temperature Temperature Source Sepsis Recent Fever Within 48 Hours Sepsis New/Unexplained Change in Mental Status Sepsis Action Taken by Nursing Pulse Rate 75 72 74 Pulse Rate [Finger] Pulse Rate from SpO2 Sensor 75 72 74 Respiratory Rate 29 H 18 19 Blood Pressure 153/87 H Blood Pressure [Right Arm] Blood Pressure Mean 109 Blood Pressure Mean [Right Arm] Pulse Oximetry 95 96 92 Oxygen Delivery Method Oxygen Flow Rate 09/01/18 21:50 09/01/18 22:00 09/01/18 22:01 Temperature Temperature Source Sepsis Recent Fever Within 48 Hours Sepsis New/Unexplained Change in Mental Status Sepsis Action Taken by Nursing Pulse Rate 74 75 75 Pulse Rate [Finger] Pulse Rate from SpO2 Sensor 74 75 74 Respiratory Rate 20 24 22 Blood Pressure 159/89 H Blood Pressure [Right Arm] Blood Pressure Mean 112 Blood Pressure Mean [Right Arm] Pulse Oximetry 93 93 97 Oxygen Delivery Method Oxygen Flow Rate 09/01/18 22:11 09/01/18 22:20 09/01/18 22:30 Temperature Temperature Source Sepsis Recent Fever Within 48 Hours Sepsis New/Unexplained Change in Mental Status Sepsis Action Taken by Nursing Pulse Rate 83 73 71 Pulse Rate [Finger] Pulse Rate from SpO2 Sensor 83 73 72 Respiratory Rate 25 H 21 20 Blood Pressure Blood Pressure [Right Arm] Blood Pressure Mean Blood Pressure Mean [Right Arm] Pulse Oximetry 96 95 96 Oxygen Delivery Method Oxygen Flow Rate 09/01/18 22:32 09/01/18 22:39 Temperature Temperature Source Sepsis Recent Fever Within 48 Hours Sepsis New/Unexplained Change in Mental Status Sepsis Action Taken by Nursing Pulse Rate 75 75 Pulse Rate [Finger] Pulse Rate from SpO2 Sensor 76 Respiratory Rate 23 23 Blood Pressure 169/91 H 169/91 H Blood Pressure [Right Arm] Blood Pressure Mean 117 Blood Pressure Mean [Right Arm] Pulse Oximetry 99 99 Oxygen Delivery Method Nasal Cannula Oxygen Flow Rate 2 GENERAL: Disheveled, mild distress, not answering questions. HEAD: normal cephalic, atraumatic EYE EXAM: normal conjunctiva, PERRL and EOM's grossly intact OROPHARYNX: no exudate, no erythema, lips, buccal mucosa, and tongue normal and mucous membranes are moist NECK: supple, no nuchal rigidity, no adenopathy, non-tender CHEST: stable to compression anteriorly and posteriorly LUNGS: clear to auscultation. Normal chest wall mechanics HEART: no murmurs, S1 normal and S2 normal ABDOMEN: abdomen soft, non-tender, normo-active bowel sounds, no masses, no rebound or guarding. PELVIS: Acute tenderness to left hip BACK: Back is symmetrical on inspection and there is no deformity, no midline tenderness, no CVA tenderness. UPPER EXTREMITIES: full active and passive range of motion of all joints without tenderness to palpation LOWER EXTREMITIES: full active and passive range of motion of all joints without tenderness to palpation with the exception of the left hip NEURO EXAM: Non-verbal, moving all extremities with the exception of left leg, winces in pain. Course ED COURSE: Vital signs were reviewed and are within normal limits. The patients medical record was reviewed The above diagnostic studies were performed and reviewed. ED treatments and interventions as stated above. 1916: The patient was evaluated in room A4B. A complete history and physical examination was performed. 2108: Patient was placed on nasal cannula oxygen secondary to hypoxia. I discussed my findings with the patient and she understands and agrees with the treatment plan. Based on the patients age, coexisting illnesses, exam and lab findings the decision to treat as an inpatient was made. The patient remained stable while under my care. The patient will be evaluated for further management. Administered Medications Discontinued Medications Sodium Chloride (Nss 1000ml) 1,000 mls @ 999 mls/hr IV .Q1H1M TONO Stop: 09/01/18 20:30 Last Infusion: 09/01/18 20:48 Dose: 0 mls/hr Documented by: [id number] Admin: 09/01/18 19:40 Dose: 999 mls/hr Documented by: [id number] Morphine Sulfate (Morphine Sulfate) 4 mg IV NOW STA Stop: 09/01/18 19:32 Last Admin: 09/01/18 19:40 Dose: 4 mg Documented by: [id number] Morphine Sulfate (Morphine Sulfate) 4 mg IV NOW STA Stop: 09/01/18 20:55 Last Admin: 09/01/18 20:58 Dose: 4 mg Documented by: [id number] Medical Decision Making Differential Diagnosis Differential diagnosis includes: major intracranial, cervical, spinal, thoracic, abdominal, pelvic and neurologic injury, fracture, contusion, sprain, strain, laceration, and abrasions. Home Medications Current Medication List: was personally reviewed by me Laboratory Data Attestation: I reviewed the patient's lab results. Result diagrams: 09/01/18 20:00 09/01/18 20:44 Lab Results 09/01/18 09/01/18 09/01/18 Range/Units 20:00 20:00 20:00 WBC 17.01 H (4.8-10.8) K/uL RBC 4.84 (4.2-5.4) M/uL Hgb 15.7 (12.0-16.0) g/dL Hct 44.8 (37-47) % MCV 92.6 (80-100) fL MCH 32.4 (25-34) pg MCHC 35.0 (32-36) g/dL RDW Std Deviation 50.3 H (36.4-46.3) fL RDW Coeff of Kelly 15.0 H (11.5-14.5) % Plt Count 183 (130-400) K/uL MPV 10.7 H (7.4-10.4) fL Immature Gran % (Auto) 1.1 % Neut % (Auto) 83.5 % Lymph % (Auto) 7.8 % [place] % (Auto) 6.8 % Eos % (Auto) 0.6 % Baso % (Auto) 0.2 % Immature Gran # (Auto) 0.18 H (0.00-0.02) K/uL Neut # (Auto) 14.19 H (1.4-6.5) K/uL Lymph # (Auto) 1.33 (1.2-3.4) K/uL [place] # (Auto) 1.16 H (0.11-0.59) K/uL Eos # (Auto) 0.11 (0-0.5) K/uL Baso # (Auto) 0.04 (0-0.2) K/uL PT Cancelled INR Cancelled Sodium Cancelled Potassium Cancelled Chloride Cancelled Carbon Dioxide Cancelled Anion Gap Cancelled BUN Cancelled Creatinine Cancelled Est Cr Clr Drug Dosing Cancelled Est GFR ( Amer) Cancelled Est GFR (Non-Af Amer) Cancelled BUN/Creatinine Ratio Cancelled Glucose Cancelled Calcium Cancelled Magnesium (1.8-2.4) mg/dl Total Bilirubin Cancelled AST Cancelled ALT Cancelled Alkaline Phosphatase Cancelled Total Creatine Kinase Cancelled Troponin I Cancelled Total Protein Cancelled Albumin Cancelled Globulin Cancelled Albumin/Globulin Ratio Cancelled 09/01/18 09/01/18 09/01/18 Range/Units 20:44 20:44 20:44 WBC (4.8-10.8) K/uL RBC (4.2-5.4) M/uL Hgb (12.0-16.0) g/dL Hct (37-47) % MCV (80-100) fL MCH (25-34) pg MCHC (32-36) g/dL RDW Std Deviation (36.4-46.3) fL RDW Coeff of Kelly (11.5-14.5) % Plt Count (130-400) K/uL MPV (7.4-10.4) fL Immature Gran % (Auto) % Neut % (Auto) % Lymph % (Auto) % [place] % (Auto) % Eos % (Auto) % Baso % (Auto) % Immature Gran # (Auto) (0.00-0.02) K/uL Neut # (Auto) (1.4-6.5) K/uL Lymph # (Auto) (1.2-3.4) K/uL [place] # (Auto) (0.11-0.59) K/uL Eos # (Auto) (0-0.5) K/uL Baso # (Auto) (0-0.2) K/uL PT 10.8 INR 1.1 Sodium 144 Potassium 3.4 L Chloride 114 H Carbon Dioxide 20 L Anion Gap 10.0 BUN 22 H Creatinine 0.75 Est Cr Clr Drug Dosing Not Reportable Est GFR ( Amer) 83.1 Est GFR (Non-Af Amer) 71.7 BUN/Creatinine Ratio 29.7 H Glucose 118 H Calcium 8.7 Magnesium 2.2 (1.8-2.4) mg/dl Total Bilirubin 0.5 AST 17 ALT 20 Alkaline Phosphatase 63 Total Creatine Kinase 71 Troponin I < 0.015 Total Protein 6.7 Albumin 3.6 Globulin 3.1 Albumin/Globulin Ratio 1.2 Imaging Data Radiologist's Impression: Radiology results as stated below per my review and the radiologist's interpretation: HEAD CT NONCONTRAST CT DOSE: 614.27 mGy.cm HISTORY: Confusion. fall TECHNIQUE: Multiaxial CT images of the head were performed without the use of intravenous contrast. Automated exposure control was utilized for this study. A dose lowering technique was utilized adhering to the principles of ALARA. Comparison: Head CT 01/12/2018. Findings: The paranasal sinuses and mastoid air cells are clear. The calvarium and skull base are intact. There is no mass, hematoma, midline shift, acute infarct. White matter hypodensity is nonspecific but suggestive of microvascular ischemic change. The ventricles and sulci demonstrate mild age-related involutional changes. Old left cerebellar infarct, unchanged. Impression: No significant change compared to the prior study. No acute intracranial abnormality. Electronically signed by: Dash Gage M.D. 09/01/2018 8:19 PM XR hip LT 2-3V w pelvis CLINICAL HISTORY: Left hip pain. Fall. COMPARISON STUDY: FINDINGS: Left femoral neck fracture demonstrating 2 cm of superior displacement. The femoral head remains within the acetabulum. Prior right hip hemiarthroplasty. The visualized pelvic bones are intact. IMPRESSION: Displaced left femoral neck fracture. Electronically signed by: Dash Gage M.D. 09/01/2018 7:58 PM XR chest 1V portable HISTORY: fall COMPARISON: None. FINDINGS: There are low lung volumes. The heart is mildly enlarged. Retrocardiac density favors a small hiatus hernia but is technically indeterminate. Mild diffuse interstitial thickening. This may be chronic. No focal lung consolidations to suggest pneumonia. No pleural effusions. No pneumothorax. IMPRESSION: 1. Mild diffuse interstitial thickening. This may be chronic. 2. Nonspecific small retrocardiac density. Statistically this represents a hiatus hernia. Electronically signed by: Dash Gage M.D. 09/01/2018 8:00 PM Blood Pressure Blood Pressure Findings: Elevated blood pressure Blood Pressure Disposition: further management by hospitalist YURI Narrative Patient is an 88-year-old female who presents the ER following a mechanical fall onto left hip. She has significant pain with any movement. Patient was slightly hypertensive. Labs were obtained and showed a leukocytosis of 17,000 which is favored secondary to the left hip fracture. No significant anemia. INR is unremarkable. BMP with a slightly low CO2 at 20. Magnesium and bilirubin were unremarkable. No significant transaminitis. Troponin was negative. Chest x-ray along with x-ray of the left hip and pelvis along with CT of the head showed acute left hip fracture. Patient was given 2 doses of IV morphine and she did drop her pulse oximetry secondary to the narcotics. She was placed on 2 L nasal cannula. She was updated bedside. Discussed with the hospitalist patient was admitted for left hip fracture. Impression & Plan Closed fracture of left hip Discharge Plan Visit Data *Final* Discharge Date/Time: 09/01/18 22:39 Chief Complaint: Fall ED Provider: Lang Srinivasan Discharge Problem: Closed fracture of left hip Patient Disposition: Admitted As Inpatient Discharge Instructions Interventions: ED Discharge Assessment Last Done: 09/01/18 22:39 The scribe's documentation has been prepared under my direction and personally reviewed by me in its entirety. I confirm that the note above accurately reflects all work, treatment, procedures, and medical decision making performed by me.
[2018-09-02] MEDS: SODIUM CHLORIDE 0.9% 1000ML 1,000 ML IV SCH ×2 (00:23→13:05)
[2018-09-02] MEDS: POTASSIUM CHLORIDE / WTR 10 MEQ/100 ML PLCT IV SCH ×4 (00:24→03:26)
[2018-09-02 02:39] LABS: Appearance Urine Clear (Clear); Bilirubin Urine Negative (Negative); Blood Urine Trace (Negative); Color Urine Yellow; Glucose Urine UA Negative (Negative); Ketones Urine 1+ (Negative); Leukocyte Esterase Urine Negative (Negative); Nitrite Urine Negative (Negative); Protein Urine Negative (Negative); Specific Gravity Urine >= 1.030 (1.000-1.030); Urobilinogen Urine Negative (Negative)
[2018-09-02 02:45] LABS: Epithelial Cell Urine >30 /lpf (0-5)
[2018-09-02 02:46] LABS: Mucus Urine Present (None Prsent); RBC Urine 0-4 /hpf (0-4)
[2018-09-02 02:47] LABS: Bacteria Urine 1+ (Negative); Hyaline Casts Urine 0-5 /lpf (0-5)
[2018-09-02] MEDS ORDERED: CEFAZOLIN 2000MG 2,000 MG/15 ML SYR IV SCH (06:00)
[2018-09-02] MEDS ORDERED: cefTRIAXone SODIUM 1,000 MG in DEXTROSE 5% 50 ML IV SCH (06:00)
[2018-09-02 07:35] LABS: Hematocrit (blood only) 41.3 % (37-47); Hemoglobin 14.2 g/dL (12.0-16.0); Mean Corpuscular Hgb Conc 34.4 g/dL (32-36); Mean Corpuscular Volume 92.8 fL (80-100); Mean Platelet Volume 9.9 fL (7.4-10.4); Platelet Count 151 K/uL (130-400); RDW Standard Deviation 50.6 fL (36.4-46.3); Red Blood Count 4.45 M/uL (4.2-5.4); White Blood Count 11.51 K/uL (4.8-10.8)
[2018-09-02 07:57] LABS: BUN Creatinine Ratio 20.7 (10-20); Calcium 8.1 mg/dl (8.5-10.1); Creatinine Clr Calc Pharmacy 40.1 ml/min; Est GFR (African American) 88.8; Est GFR (Non-African American) 76.6; Potassium 4.4 mmol/L (3.5-5.1)
--- NOTE | 2018-09-02 09:31 | Orthopedic Consultation ---
Date of Consultation September 02, 2018 Assessment & Plan (1) Left displaced femoral neck fracture: patient will require left hip bipolar hemiarthroplasty to be performed by dr koroma later today, she has been NPO since midnight. she has also been evaluted and is medically acceptable risk for surgery. I spoke with patient KEV on the phone , Gila Ochoa, who will be here later today, and she stated patients will also be here later this morning and will do the consent form. at this point will proceed with surgical intervention. I personally saw and examined the patient, agree with above assessment and plan. The patient is an 88-year-old female with displaced left femoral neck fracture. I have indicated the patient for left hip hemiarthroplasty. The risk benefits complications alternatives of surgery were explained to the patient's POA, daughter, Gila Ochoa which include however not limited to infections, blood clots, acute blood loss, injury to surrounding nerves, bone, vessels, soft tissue, arthrofibrosis, chronic pain, failure of the prosthesis, need for additi onal surgery, cardiac and pulmonary events and . Patient's family, POA wish to proceed with surgical intervention at this time and verbal consent was obtained. History of Present Illness Reason for Consultation: left hip fracture Attending Physician: Khadra Davis MD History of Present Illness 88-year-old female who presented to the ED after having a fall at home and presents with left hip pain. patient has h/o Alzheimer's and currently is unsure of what happened. History is unobtainable at this time and is taken from ER note as well as H&P. Patients not in the room at this time, but I did call and speak with patients daughter that is POA. stated that he was getting a drink for the patient and when he went to handed to her, he placed his hand on her shoulder and patient took a step forward and then fell to the ground. There was no associated loss of consciousness. Daughter states that she is ambulatory at home, but for longer distances she has used a wheelchair. she lives with her at home and has a caregiver during the day, but typically they are alone at night. caregiver and reports the patient has been doing well recently. She has chronic exertional shortness of breath which is unchanged from baseline. She also has chronic low back pain. No reports of chest pain. No lightheadedness, dizziness, diaphoresis, syncopal events. No reports of abdominal pain, nausea, vomiting, diarrhea. No fevers or chills. No urinary symptoms. In the ED, patient is found to have a displaced left femoral neck fracture. Allergies Allergy/AdvReac Type Severity Reaction Status Date / Time No Known Allergies Allergy Verified 09/01/18 20:31 Home Medications Home Medications Medication Instructions Recorded Confirmed Type No Known Home Medications 09/01/18 09/01/18 History Patient History Medical History Hip fracture, right (Resolved) s/p repair C. difficile colitis (Resolved) Right patella fracture (Resolved) Ovarian cyst (Resolved) Hypertension (Chronic) Alzheimer's dementia (Chronic) Chronic lumbar pain (Chronic) Lumbar compression fracture (Resolved) Hx of right bundle branch block (Chronic) Surgical History H/O oophorectomy (Chronic) Family History Sister Stroke Social History Communication Ability: Impaired Beliefs That Will Affect Care: None marital status: Current Living Situation: Spouse and Other Current Living Situation Comment: caregivers 7-8 hours/day Other Information That Helps Us Care for You: No Feels Safe at Home: Yes Safety Concerns: Feels Safe At This Time Smoking Status: Former smoker Hx Alcohol Use: Yes Hx Substance Use: No Review of Systems Constitutional: as per Subjective / HPI unable to obtain at this time Physical Exam Vital Signs (Past 24 Hours): Last Vital Signs Temp 37.0 C 09/02/18 07:31 Pulse 70 09/02/18 07:31 Resp 20 09/02/18 07:31 BP 142/87 H 09/02/18 08:20 Pulse Ox 98 09/02/18 07:31 Musculoskeletal: currently patient resting on her right side lateral decubitus, she is able to wiggle her toes and moves her ankle. diffuse tenderness is noted to the lateral hip area, pain with attempted ROM of the hip. Results & Data Laboratory Results Laboratory Results WBC 11.51 K/uL (4.8-10.8) H 09/02/18 07:09 RBC 4.45 M/uL (4.2-5.4) 09/02/18 07:09 Hgb 14.2 g/dL (12.0-16.0) 09/02/18 07:09 Hct 41.3 % (37-47) 09/02/18 07:09 MCV 92.8 fL (80-100) 09/02/18 07:09 MCH 31.9 pg (25-34) 09/02/18 07:09 MCHC 34.4 g/dL (32-36) 09/02/18 07:09 RDW Std Deviation 50.6 fL (36.4-46.3) H 09/02/18 07:09 RDW Coeff of Kelly 15.0 % (11.5-14.5) H 09/02/18 07:09 Plt Count 151 K/uL (130-400) 09/02/18 07:09 MPV 9.9 fL (7.4-10.4) 09/02/18 07:09 Immature Gran % (Auto) 1.1 % 09/01/18 20:00 Neut % (Auto) 83.5 % 09/01/18 20:00 Lymph % (Auto) 7.8 % 09/01/18 20:00 [place] % (Auto) 6.8 % 09/01/18 20:00 Eos % (Auto) 0.6 % 09/01/18 20:00 Baso % (Auto) 0.2 % 09/01/18 20:00 Immature Gran # (Auto) 0.18 K/uL (0.00-0.02) H 09/01/18 20:00 Neut # (Auto) 14.19 K/uL (1.4-6.5) H 09/01/18 20:00 Lymph # (Auto) 1.33 K/uL (1.2-3.4) 09/01/18 20:00 [place] # (Auto) 1.16 K/uL (0.11-0.59) H 09/01/18 20:00 Eos # (Auto) 0.11 K/uL (0-0.5) 09/01/18 20:00 Baso # (Auto) 0.04 K/uL (0-0.2) 09/01/18 20:00 PT 10.8 Seconds (9.0-12.0) 09/01/18 20:44 INR 1.1 (0.9-1.1) 09/01/18 20:44 Sodium 139 mmol/L (136-145) 09/02/18 07:09 Potassium 4.4 mmol/L (3.5-5.1) D 09/02/18 07:09 Chloride 109 mmol/L (98-107) H 09/02/18 07:09 Carbon Dioxide 23 mmol/L (21-32) 09/02/18 07:09 Anion Gap 7.0 (3-11) 09/02/18 07:09 BUN 15 mg/dl (7-18) 09/02/18 07:09 Creatinine 0.71 mg/dl (0.6-1.2) 09/02/18 07:09 Est Cr Clr Drug Dosing 40.1 ml/min 09/02/18 07:09 Est GFR ( Amer) 88.8 09/02/18 07:09 Est GFR (Non-Af Amer) 76.6 09/02/18 07:09 BUN/Creatinine Ratio 20.7 (10-20) H 09/02/18 07:09 Glucose 121 mg/dl (70-99) H 09/02/18 07:09 Calcium 8.1 mg/dl (8.5-10.1) L 09/02/18 07:09 Magnesium 2.2 mg/dl (1.8-2.4) 09/01/18 20:44 Total Bilirubin 0.5 mg/dl (0.2-1) 09/01/18 20:44 AST 17 U/L (15-37) 09/01/18 20:44 ALT 20 U/L (12-78) 09/01/18 20:44 Alkaline Phosphatase 63 U/L (45-117) 09/01/18 20:44 Total Creatine Kinase 71 U/L (26-192) 09/01/18 20:44 Troponin I < 0.015 ng/ml (0-0.045) 09/01/18 20:44 Total Protein 6.7 gm/dl (6.4-8.2) 09/01/18 20:44 Albumin 3.6 gm/dl (3.4-5.0) 09/01/18 20:44 Globulin 3.1 gm/dl (2.5-4.0) 09/01/18 20:44 Albumin/Globulin Ratio 1.2 (0.9-2) 09/01/18 20:44 25-OH Vitamin D Total 21.1 ng/ml (30-100) L 09/02/18 07:09 Urine Color Yellow 09/01/18 22:10 Urine Appearance Clear (Clear) 09/01/18 22:10 Urine pH 5.0 (4.5-7.5) 09/01/18 22:10 Ur Specific [place] >= 1.030 (1.000-1.030) 09/01/18 22:10 Urine Protein Negative (Negative) 09/01/18 22:10 Urine Glucose (UA) Negative (Negative) 09/01/18 22:10 Urine Ketones 1+ (Negative) H 09/01/18 22:10 Urine Blood Trace (Negative) H 09/01/18 22:10 Urine Nitrite Negative (Negative) 09/01/18 22:10 Urine Bilirubin Negative (Negative) 09/01/18 22:10 Urine Urobilinogen Negative (Negative) 09/01/18 22:10 Ur Leukocyte Esterase Negative (Negative) 09/01/18 22:10 Urine RBC 0-4 /hpf (0-4) 09/01/18 22:10 Urine WBC 5-10 /hpf (0-5) H 09/01/18 22:10 Ur Epithelial Cells >30 /lpf (0-5) H 09/01/18 22:10 Urine Bacteria 1+ (Negative) H 09/01/18 22:10 Hyaline Casts 0-5 /lpf (0-5) 09/01/18 22:10 Urine Mucus Present (None Prsent) H 09/01/18 22:10 Nasal Screen MRSA (PCR) Negative (Negative) 09/01/18 Unknown Blood Type A Positive 09/02/18 07:09 Antibody Screen NEGATIVE 09/02/18 07:09 Diagnostic Findings XR hip LT 2-3V w pelvis CLINICAL HISTORY: Left hip pain. Fall. COMPARISON STUDY: FINDINGS: Left femoral neck fracture demonstrating 2 cm of superior displa cement. The femoral head remains within the acetabulum. Prior right hip hemiarthroplasty. The visualized pelvic bones are intact. IMPRESSION: Displaced left femoral neck fracture.
--- NOTE | 2018-09-02 09:39 | XRay Report ---
LEFT FEMUR 3 VIEWS CLINICAL HISTORY: Left hip fracture. FINDINGS: AP, frog-leg, and stable lateral portable views of the left femur are correlated with radio graphs of left hip performed 09/01/2018. The skeletal structures are osteopenic. Again seen is a distra cted subcapital fracture of the left femur. There is superior and dorsal distraction of the femoral n dawood and alignment is unchanged from yesterday. The remainder of the femur appears intact. The visuali zed left hemipelvis appears maintained. Arthritic change is noted in the left hip and knee joints. Th e femoral head remains within the acetabulum. Degenerative sclerosis is seen in the left sacroiliac j oint. Soft tissue edema is noted in the upper thigh. IMPRESSION: 1. There is unchanged alignment of a distracted subcapital fracture of the left femur as compared to yesterday. 2. No additional fracture is seen. Electronically signed by: Reginaldo Cary M.D. 09/02/2018 9:37 AM
--- NOTE | 2018-09-02 10:53 | Anesthesiology Consultation ---
Date of Service September 02, 2018 The patient had a fall with no loss of consciousness. Head CT was negative. The patient has a history of Alzheimer's dementia. Her was at bedside and was able to answer some questions but did appear confused at times. The patient's daughter Gila Ochoa is her POA. She was called at [phone] but was unable to be reached. Apparently, she will be coming to the hospital later today so we will obtain anesthesia consent at that time for spinal vs. general anesthesia. Assessment & Plan (1) Encounter for pre-operative examination: Chart Review Chart Review: Acceptable Risk for Surgery and Patient NOT seen in Pre Admission Testing Consults Requested none NPO Date Last Intake of Fluids: 09/01/18 Time Last Intake of Fluids: 23:59 Date Last Intake of Solids: 09/01/18 History Surgery Operation Date: 09/02/18 07:00 Proposed Procedures p Left Bipolar Hemiarthroplasty - Sameer Kelly DO Height/Weight Height: 5 ft Weight: 50.7 kg Allergies Allergy/AdvReac Type Severity Reaction Status Date / Time No Known Allergies Allergy Verified 09/01/18 20:31 Medications Home Medications Medication Instructions Recorded Confirmed Last Taken No Known Home Medications 09/01/18 09/01/18 Unknown Active Medications Generic Name Dose Route Start Last Admin Trade Name Freq PRN Reason Stop Dose Admin Sodium Chloride 1,000 mls @ 80 mls/hr 09/01/18 23:11 09/02/18 05:05 Nss 1000ml IV 10/01/18 23:10 80 mls/hr .[id number] TONO Infusion Ceftriaxone Sodium 1,000 mg/ 50 mls @ 100 mls/hr 09/02/18 06:00 09/02/18 06:36 Dextrose IV 09/07/18 05:59 Infused Q24H TONO Infusion Protocol Morphine Sulfate 2 mg 09/01/18 23:11 09/02/18 07:34 Morphine Sulfate IV 09/15/18 23:10 2 mg Q4H PRN Administration MODERATE Pain (Scale 4,5,6) Past Medical History Medical History Hip fracture, right (Resolved) s/p repair C. difficile colitis (Resolved) Right patella fracture (Resolved) Ovarian cyst (Resolved) Hypertension (Chronic) Alzheimer's dementia (Chronic) Chronic lumbar pain (Chronic) Lumbar compression fracture (Resolved) Hx of right bundle branch block (Chronic) Past Family History Family History Sister Stroke Past Surgical History Surgical History H/O oophorectomy (Chronic) Social History Smoking Status: Former smoker Hx Alcohol Use: Yes Alcohol type: beer alcohol intake frequency: 0-2 drinks per day Hx Substance Use: No Physical Exam Vital Signs Last Vital Signs Temp 37.6 C H 09/02/18 11:31 Pulse 70 09/02/18 11:31 Resp 20 09/02/18 11:31 BP 158/89 H 09/02/18 11:31 Pulse Ox 94 09/02/18 11:31 Constitutional + cachectic ENMT Mouth: + dental caries Thyromental Distance: > or= 3.5 Finger Breadths Mallampati Class: II Neck normal visual inspection Respiratory normal respiratory effort Cardiovascular Rate/Rhythm: regular rate and regular rhythm Musculoskeletal Extremities: + limited ROM of extremities (L hip) Psychiatric Orientation: alert (Patient opened her mouth to verbal command but was not oriented) Testing Electrocardiogram Date: 09/01/18 Findings: + RBBB and + T wave inversion (less evident than prior EKG) SR with PACs rate 75 Chest X-Ray Date: 09/01/18 XR chest 1V portable HISTORY: fall COMPARISON: None. FINDINGS: There are low lung volumes. The heart is mildly enlarged. Retrocardiac density favors a small hiatus hernia but is technically indeterminate. Mild diffuse interstitial thickening. This may be chronic. No focal lung consolidations to suggest pneumonia. No pleural effusions. No pneumothorax. IMPRESSION: 1. Mild diffuse interstitial thickening. This may be chronic. 2. Nonspecific small retrocardiac density. Statistically this represents a hiatus hernia. Electronically signed by: Dash Gage M.D. 09/01/2018 8:00 PM Dictated: 09/01/181957 Transcribed: 09/01/181957 Laboratory Results 09/02/18 07:09 09/02/18 07:09 Blood Type A Positive 09/02/18 07:09 Antibody Screen NEGATIVE 09/02/18 07:09 PT 10.8 Seconds (9.0-12.0) 09/01/18 20:44 INR 1.1 (0.9-1.1) 09/01/18 20:44 Urine Color Yellow 09/01/18 22:10 Urine Appearance Clear (Clear) 09/01/18 22:10 Urine pH 5.0 (4.5-7.5) 09/01/18 22:10 Ur Specific Craig >= 1.030 (1.000-1.030) 09/01/18 22:10 Urine Protein Negative (Negative) 09/01/18 22:10 Urine Glucose (UA) Negative (Negative) 09/01/18 22:10 Urine Ketones 1+ (Negative) H 09/01/18 22:10 Urine Nitrite Negative (Negative) 09/01/18 22:10 Ur Leukocyte Esterase Negative (Negative) 09/01/18 22:10 Urine RBC 0-4 /hpf (0-4) 09/01/18 22:10 Urine WBC 5-10 /hpf (0-5) H 09/01/18 22:10 Ur Epithelial Cells >30 /lpf (0-5) H 09/01/18 22:10
[2018-09-02] MEDS ORDERED: PROPOFOL IV EMULSION 10 MG/ML 20 ML VIAL IV ONE (13:43)
[2018-09-02] MEDS ORDERED: ONDANSETRON INJ 2 MG/ML 2 ML VIAL ONE (13:43)
[2018-09-02] MEDS ORDERED: fentaNYL citrate 100 MCG/2 ML VIAL ONE (13:43)
[2018-09-02] MEDS ORDERED: LIDOCAINE HCL 2% 2 ML VIAL/AMP(20MG/ML) INFIL ONE (13:43)
[2018-09-02] MEDS ORDERED: POVIDONE-IODINE OP SOLN 30 ML BTL ONE (14:15)
[2018-09-02] MEDS ORDERED: BACITRACIN INJ 50,000 UNIT VIAL ONE (14:16)
[2018-09-02] MEDS ORDERED: MIDAZOLAM HCL 1 MG/ML 2ML VIAL ONE (14:28)
[2018-09-02] MEDS ORDERED: KETAMINE HCL INJ 50 MG/ML 10 ML VIAL ONE (14:29)
[2018-09-02] MEDS ORDERED: CEFAZOLIN 1,000 MG/7.5 ML IV PUSH IV ONE (14:30)
--- NOTE | 2018-09-02 14:30 | History & Physical Bridge Note ---
Date of Service September 02, 2018 History & Physical Bridge Note I have examined the patient, reviewed the History & Physical and in the interval since the performance of the History & Physical I have noted the following changes of clinical significance: no changes noted
[2018-09-02] MEDS ORDERED: SODIUM CHLORIDE 0.9% INJ 10 ML VIAL ONE (14:31)
[2018-09-02] MEDS ORDERED: CEFAZOLIN 1000MG 1,000 MG/7.5 ML SYR IV ONE (14:45)
[2018-09-02] MEDS ORDERED: ROPIVACAINE 0.5% HCL/PF 150 MG, BUPIVACAINE 0.5% MPF 30 ML, EPINEPHrine 0.15 MG, Ketoro... INFIL ONE (15:00)
[2018-09-02] MEDS ORDERED: ATROPINE SULFATE 0.1 MG/ML 10ML SYR IV PRN (15:15)
[2018-09-02] MEDS ORDERED: ePHEDrine sulfate 50 MG/ML AMP IV PRN (15:15)
[2018-09-02] MEDS ORDERED: PHENYLEPHRINE HCL 10 MG/ML VIAL ONE (15:29)
[2018-09-02] MEDS ORDERED: ePHEDrine sulfate 50 MG/ML SYR ONE (15:31)
[2018-09-02] MEDS ORDERED: NOREPINEPHRINE BITARTRATE 1 MG/ML 4 ML VIAL IV ONE (16:03)
--- NOTE | 2018-09-02 16:34 | Post Operative Brief Note ---
Immediate Post Op Note v1 Date of Surgery September 02, 2018 Pre & Post Diagnosis Operation Date: 09/02/18 07:00 Pre-Op Diagnosis: Left Hip Fracture Post-Op Diagnosis: Left Hip Fracture Procedure Operation Date: 09/02/18 07:00 Actual Procedures p Left Bipolar Hemiarthroplasty cemented(Left) - Sameer Kelly DO Surgeon Sameer Kelly DO Dry Cleaning Attendant Dyllan Alexandre Estimated Blood Loss 100 Findings Consistent with Post-Op Diagnosis Fluids 1100 Specimens FEMORAL HEAD Drains Oquendo Catheter (patient arrived to OR with patent oquendo) Anesthesia Type Spinal MAC Complications none Disposition Disposition: Recovery Room Overlapping Procedure I was present for: the critical portions of procedure. I was immediately available: during the entire case. Back up surgeon: was not required during procedure.
[2018-09-02] MEDS ORDERED: TRAMADOL HCL 50 MG TABLET PO PRN (16:40)
--- NOTE | 2018-09-02 16:56 | Operative Report ---
Post Operative Report Pre & Post Diagnosis Operation Date: 09/02/18 07:00 Pre-Op Diagnosis: Left Hip Fracture Post-Op Diagnosis: Left Hip Fracture Procedure Operation Date: 09/02/18 07:00 Actual Procedures p Left Bipolar Hemiarthroplasty cemented(Left) - Sameer Kelly DO Surgeon Sameer Kelly DO Tow Driver Dyllan Alexandre Estimated Blood Loss 100 Findings Consistent with Post-Op Diagnosis Fluids 1100 Specimens femoral head Drains none Anesthesia Type Spinal MAC Complications none Disposition Disposition: Recovery Room Indications The patient is a 88-year-old female with displaced left femoral neck fracture sustained after a fall from standing height. The patient was medically stabilized on 09/02/2018. I indicated the patient for left hip hemiarthroplasty. The patient and family, POA was informed of the risks and benefits of surgery, which include but not limited to infection, bleeding, blood clots, damage to nerves, vessels, bone and soft tissue, dislocation, leg length discrepancy, need for additional surgery and . The patient and family collectively chose to move forward with surgical intervention and informed consent was obtained. Description of Procedure Following induction of adequate spinal anesthesia, the patient was transferred to the OR table and placed in the lateral decubitus position with right hip down. The left hip was prepped and draped in usual sterile manner. A posterior incision was made. Subcutaneous tissue was sharply dissected. Electro cautery was used for hemostasis. Fascia was incised throughout the length of the wound and the piriformis was identified. A #1 Vicryl suture was used to tage the piriformis. The short external rotators were divided from the posterior aspect of the femur and a capsulotomy was performed. A second #1 Vicryl suture was used to tag the capsule. Next, I turned my attention to the femoral neck fracture. The fracture was relatively high on the calcar and decision was made to proceed with the oscillating saw and create the calcar osteotomy. This bone fragment was removed. Following this, tenaculum and cob elevater was utilized to remove the femoral head. The head was measured on the back table and the 45 mm femoral head was chosen as the size to be used. Next, attention was turned to the acetabulum which was found to have no significant arthritis. All bony debris was removed. A sponge was placed in the acetabulum. Attention was then turned to the proximal femur where box osteotome was used to gain access to the femoral canal. A canal finder and power lateralizing reamer were utilized to further open. Sequential raspings were taken up to a size 3, which was sunk completely. The stem was placed and found to be stable and a trial reduction was carried out and a 28+3.5 mm femoral head was chosen the size to be used with the 45 mm bipolar cup. Following a trial reduction, the hip was found to be stable to 45 degrees of internal rotation and 90 degrees of flexion with equal leg lengths. The instruments and trial components were removed. I identified a nondisplaced incomplete fracture of the medial calcar which extended from the neck cut to just proximal to the lesser trochanter, less than 1 cm in length but did not involve the lesser trochanter. I protected the medial calcar by placing 1 [place] cable just proximal to the lesser trochanter. The hip was thoroughly irrigated with pulsatile irrigation. The canal was irrigated and dried, cement restrictor was placed and [place] cement was mixed. The size 3 Avinir cemented stem with a high offset was placed and this was held in position while cement hardened. All excess cement was removed. Following insertion of final stem component another trial reduction was carried out and again a 3.5 neck size was chosen as the size to be used. The final head and neck was impacted into position and the hip was reduced and stablity assess and was found to be stable to 45 degrees of internal rotation and 90 degrees of flexion. The wound was again irrigated. Clover-incisional soft tissue was injected with the [place] [employer] which includes a combination of Ropivicaine 0.5% 150mg, Bupivicaine 0.5%/Epinephrine 1:200,000 30ml, Toradol 30mg, Dexamethasone 4mg, Ketamine 10mg, Clonidine 100mcg and NSS 30ml solution. The capsulebwas repaired using #5 fiberwire sutures through drill holes. Following this, the short external rotators were reapproximated to the posterior aspect of the femur also through drill holes and these were tied. Once again the wound was copiously irrigated with sterile saline solution with bacitracin. Fascia was closed using #1 Vicryl [id number] sutures, subcutaneous tissue was closed using 2-0 vicryl, and skin was closed with flakito. Sterile dressings Silverlon were applied and abduction pillow placed between the legs. The patient tolerated the procedure well and was taken to recovery room in stable condition. Due to the complex nature of the procedure, the entire surgery was performed with the operational assistance of Dyllan Alexandre PA-C. The liaison inspection laboratory assistant, under direct supervision, was involved in the actual performance of all aspects of the surgical procedure including patient positioning, hemostasis, tissue retraction, instrument management and wound closure. I attest to the content of the Intraoperative Record and any orders documented therein. Any exceptions are noted below.
--- NOTE | 2018-09-02 17:11 | Orthopedic Progress Note ---
Date of Service September 02, 2018 Assessment & Plan (1) Left displaced femoral neck fracture: Status post left hip hemiarthroplasty -Ancef x24 -DVT prophylaxis Lovenox 30 mg subcu daily, SCDs and teds -Weight-bear as tolerated left lower extremity -PT/OT when medically stable -Postoperative x-ray demonstrated a well aligned well fixed cemented orthopedic prothesis with cable. -I discussed with patient's POA, daughter the need for intra-op placement of calcar cable. All questions were answered to satisfaction. -A.m. labs -Silverlon dressing times 7 days Subjective Post Operative Progress Note Patient seen in PACU, comfortable, pleasantly demented, subjective exam limited. Physical Exam Vital Signs (Past 24 Hours): Last Vital Signs Temp 36.2 C L 09/02/18 16:48 Pulse 91 H 09/02/18 17:05 Resp 22 09/02/18 17:05 BP 117/68 09/02/18 17:05 Pulse Ox 92 09/02/18 17:05 Physical Exam: Physical exam limited secondary to patient's underlying dementia and spinal anesthesia. +2 dorsalis pedis pulse, compartment soft non tender, dressing clean dry and intact to the left lower extremity.
--- NOTE | 2018-09-02 17:56 | Anesthesiology Progress Note ---
Date of Service September 02, 2018 Anesthesia Post Procedure Vital Signs Vital Signs: Temp Pulse Pulse Pulse Resp BP BP 09/02/18 17:35 67 21 126/66 09/02/18 17:25 89 23 120/69 09/02/18 17:15 36.9 C 88 25 H 113/64 09/02/18 17:05 91 H 22 117/68 09/02/18 16:55 85 20 107/64 09/02/18 16:48 36.2 C L 78 19 103/65 09/02/18 14:07 37.5 C 74 24 111/86 09/02/18 11:31 37.6 C H 70 20 158/89 H 09/02/18 08:20 142/87 H 09/02/18 07:31 37.0 C 70 20 175/97 H 09/02/18 00:38 80 177/96 H 09/01/18 23:10 37 C 80 18 186/87 H 09/01/18 22:39 75 23 169/91 H 09/01/18 22:32 75 23 169/91 H 09/01/18 22:30 71 20 09/01/18 22:20 73 21 09/01/18 22:11 83 25 H 09/01/18 22:01 75 22 159/89 H 09/01/18 22:00 75 24 09/01/18 21:50 74 20 09/01/18 21:41 74 19 09/01/18 21:31 72 18 153/87 H 09/01/18 21:30 75 29 H 09/01/18 21:20 72 19 09/01/18 21:11 71 29 H 09/01/18 21:01 75 19 09/01/18 21:00 78 78 26 H 153/90 H 153/90 H 09/01/18 20:58 74 24 169/87 H 09/01/18 20:50 83 29 H 09/01/18 20:41 81 29 H 09/01/18 20:31 90 30 H 09/01/18 20:20 122 H 44 H 09/01/18 20:14 79 09/01/18 20:01 73 24 176/89 H 09/01/18 19:50 79 33 H 09/01/18 19:40 73 21 09/01/18 19:31 72 29 H 158/107 H 09/01/18 19:25 68 22 09/01/18 19:23 36 C L 76 76 24 159/125 H 159/124 H 09/01/18 19:20 70 27 H 159/124 H Pulse Ox 09/02/18 17:35 95 09/02/18 17:25 99 09/02/18 17:15 93 09/02/18 17:05 92 09/02/18 16:55 97 09/02/18 16:48 97 09/02/18 14:07 94 09/02/18 11:31 94 09/02/18 08:20 09/02/18 07:31 98 09/02/18 00:38 09/01/18 23:10 94 09/01/18 22:39 99 09/01/18 22:32 99 09/01/18 22:30 96 09/01/18 22:20 95 09/01/18 22:11 96 09/01/18 22:01 97 09/01/18 22:00 93 09/01/18 21:50 93 09/01/18 21:41 92 09/01/18 21:31 96 09/01/18 21:30 95 09/01/18 21:20 95 09/01/18 21:11 97 09/01/18 21:01 91 09/01/18 21:00 91 09/01/18 20:58 93 09/01/18 20:50 09/01/18 20:41 09/01/18 20:31 09/01/18 20:20 09/01/18 20:14 09/01/18 20:01 94 09/01/18 19:50 91 09/01/18 19:40 97 09/01/18 19:31 97 09/01/18 19:25 98 09/01/18 19:23 93 09/01/18 19:20 97 Pain Intensity Left Hip: Pain Intensity: 6 Notes Mental Status: alert / awake / arousable Patient Amnestic to Procedure: Yes Nausea / Vomiting: adequately controlled Pain: adequately controlled Airway Patency, RR, SpO2: stable & adequate BP & HR: stable & adequate Hydration State: stable & adequate Neuraxial Anesthesia: was administered and sensory block is resolving Anesthetic Complications: no major complications apparent
--- NOTE | 2018-09-02 18:02 | XRay Report ---
AP AND CROSSTABLE LATERAL LEFT HIP History: Left total hip prosthesis. Postop. FINDINGS: The patient is status post a left hip hemiarthroplasty. The hardware is intact. No fracture or dislocation. Skin flakito are in place. There is a proximal cerclage wire. IMPRESSION: Left hip hemiarthroplasty. No evidence for hardware complication. Electronically signed by: Dash Gage M.D. 09/02/2018 6:00 PM
--- NOTE | 2018-09-02 18:02 | Hospitalist Progress Note ---
Date of Service September 02, 2018 Assessment & Plan (1) Left displaced femoral neck fracture: S/p mechanical fall /loss balance and fell on ground Xray of hip shows displaced left femoral hip fx osteoporetic bone Osteoporotic left hip fracture in the setting of ground level fall appreciate input from Ortho s/p left hip ORIF /hemiarthoplasy today POD #0 had an uneventful rama and post op status EBL 100 ml ordered to check CBC in AM to assess for acute blood loss anemia PT/OT eval pt is very hard of hearing with baseline Alzeimers dementia , oriented to person only observe fall precuation caution for delirium Lovenox SC for post hip surgery DVT prophylaxis Present on Admission?: Yes (2) Hypokalemia: corrected normal level today follow lab no Evidence of GI loss: no nausea/vomiting or diarrhea Present on Admission?: Yes (3) Hip fracture, right: hx of fall leading to rt hip fx s/p repair years back Xray of hip shows no Fracture noted on rt hip hemiarthopalsty (4) Vitamin D deficiency: low vit D Xray of hip shows osteopenia ordered for 50,000 U of PO vit D /q week Tums for Ca supplement Present on Admission?: Yes (5) Abnormal urinalysis: uA + ve urine culture < 1000 CFU/ml Rocephin D/larry -no evidence of UTI leukocytosis on admission is due to stress response -fall /displaced hip fx improved 17k -> 11 K after Iv hydration repeat CBC in Am (6) Alzheimer's dementia: at baseline oriented to person only able to follow simple instructions needs assistance with ADL's her symptom is worsen due to severe hearing impariment Per daughter -whenever she is able to hear questions or instructions -she does pretty good in following most of the time her lack of response if due to the fact she is not able to hear pt dislikes hearing aids takes them off frequently Daughter is asked to bring hearing aid from home as it will benefit her to follow instructions from Physical therapist caution for sun downing /delerium CODE STATUS : full code DVT PROPHYLAXIS : moderate to high risk s/p hip surgery limited mobility sub q lovenox ordered by Ortho DISPOSTION : pt/ot eval requested may need rehab Daughter and Hisband in agreement social service consutled for discharge planning Subjective pt seen post op in room 351/1 returned from OR after left hip hemiarthoplaty surgery no sign of distress recovering from anesthesia , still groggy stable vitals Daughter and present at bedside Physical Exam Vital Signs (Past 24 Hours): Last Vital Signs Temp 36.9 C 09/02/18 17:15 Pulse 67 09/02/18 17:35 Resp 21 09/02/18 17:35 BP 126/66 09/02/18 17:35 Pulse Ox 95 09/02/18 17:35 Constitutional: WD/WN, vitals as above well developed; no acute distress Eyes: + anicteric sclerae ENMT: external ear and nose normal, oropharynx normal Ears: + hearing impairment Neck: trachea midline, no thyromegaly Respiratory: normal respiratory effort, lungs clear to auscultation Cardiovascular: RRR, no murmur, no edema Gastrointestinal (Abdomen): normal bowel sounds, soft, nontender, no hepatosplenomegaly Musculoskeletal: Hip: + hip abnormal to inpsection (s/p left hip arthroplasty ;surgical incision present ) Neurologic: PERRL, EOMI, accommodation nl, no face palsy, no dysarthria (dementia /very hard of hearing ) awake Psychiatric: Orientation: alert and oriented to person (Alzeimers dementia ) Affect: + flat affect (1) Alzheimer's dementia Alzheimer's disease onset: unspecified onset Dementia behavioral disturbance: without behavioral disturbance Qualified Code(s): G30.9 - Alzheimer's disease, unspecified; F02.80 - Dementia in other diseases classified elsewhere without behavioral disturbance (2) Hip fracture, right Encounter type: sequela Fracture type: closed Qualified Code(s): S72.001S - Fracture of unspecified part of neck of right femur, sequela
[2018-09-02] MEDS ORDERED: ONDANSETRON INJ 2 MG/ML 2 ML VIAL IV PRN (18:18)
[2018-09-02] MEDS ORDERED: NALOXONE HCL 0.4 MG/1 ML VIAL/CARP IV PRN (18:18)
[2018-09-02] MEDS ORDERED: ACETAMINOPHEN 325 MG TAB PO PRN (18:18)
[2018-09-02] MEDS ORDERED: HYDROmorphone INJ 0.5 MG/0.5 ML SYR IV PRN (18:18)
[2018-09-02] MEDS ORDERED: SODIUM CHLORIDE 0.9% 1000ML 1,000 ML IV SCH (18:45)
[2018-09-02] MEDS: DOCUSATE SODIUM/SENNA 50/8.6MG TAB PO SCH (21:35)
[2018-09-02] MEDS: SENNA 8.6 MG TAB PO SCH (21:35)
[2018-09-02] MEDS: CEFAZOLIN 1000MG 1,000 MG/7.5 ML SYR IV SCH (21:36)
[2018-09-03] MEDS: CEFAZOLIN 1000MG 1,000 MG/7.5 ML SYR IV SCH (05:29)
[2018-09-03 08:20] LABS: Hematocrit (blood only) 30.7 % (37-47); Hemoglobin 10.5 g/dL (12.0-16.0); Mean Corpuscular Hgb Conc 34.2 g/dL (32-36); Mean Corpuscular Volume 92.5 fL (80-100); Mean Platelet Volume 9.8 fL (7.4-10.4); Platelet Count 104 K/uL (130-400); RDW Standard Deviation 51.1 fL (36.4-46.3); Red Blood Count 3.32 M/uL (4.2-5.4); White Blood Count 9.06 K/uL (4.8-10.8)
[2018-09-03 08:31] LABS: BUN Creatinine Ratio 19.2 (10-20); Calcium 8.2 mg/dl (8.5-10.1); Creatinine Clr Calc Pharmacy 44.5 ml/min; Est GFR (Non-African American) 80.2
[2018-09-03 08:52] LABS: Basophils # (auto) 0.01 K/uL (0-0.2); Basophils % (auto) 0.1 %; Eosinophils # (auto) 0.25 K/uL (0-0.5); Eosinophils % (auto) 2.8 %; Immature Granulocytes # (auto) 0.02 K/uL (0.00-0.02); Immature Granulocytes % (auto) 0.2 %; Lymphocytes # (auto) 0.41 K/uL (1.2-3.4); Lymphocytes % (auto) 4.5 %; Monocytes # (auto) 0.51 K/uL (0.11-0.59); Monocytes % (auto) 5.6 %; Neutrophils # (auto) 7.86 K/uL (1.4-6.5); Neutrophils % (auto) 86.8 %
[2018-09-03] MEDS: ENOXAPARIN INJ 30 MG/0.3 ML SYR SQ SCH (08:56)
[2018-09-03] MEDS: CALCIUM CARBONATE 500 MG CHEWABLE TAB PO SCH ×2 (08:57→20:56)
[2018-09-03] MEDS ORDERED: ERGOCALCIFEROL 50,000 UNITS CAP PO ONE (09:00)
--- NOTE | 2018-09-03 14:16 | Orthopedic Progress Note ---
Date of Service September 03, 2018 Assessment & Plan (1) Left displaced femoral neck fracture: s/p L hip hemiarthroplasty -Ancef x24 -DVT prophylaxis Lovenox 30 mg subcu daily, SCDs and teds -Weight-bear as tolerated left lower extremity -PT/OT when medically stable -Postoperative x-ray demonstrated a well aligned well fixed cemented orthopedic prothesis with cable. -I discussed with patient's POA, daughter the need for intra-op placement of calcar cable. All questions were answered to satisfaction. -A.m. labs - 10.5 -Silverlon dressing times 7 days Subjective Post Operative Progress Note Patient seen sitting up in bed, comfortable, denies complaints, pain well controlled, no acute issues. Constitutional: as per Subjective / HPI Physical Exam Vital Signs (Past 24 Hours): Last Vital Signs Temp 36.8 C 09/03/18 13:57 Pulse 76 09/03/18 13:57 Resp 16 09/03/18 13:57 BP 127/75 09/03/18 13:57 Pulse Ox 95 09/03/18 13:57 Physical Exam: LLE NVSI +EHL/FHL/TA/GS SILT grossly, +2 DP pulse, compartments soft NT, dressing cdi. Constitutional: WD/WN, vitals as above
--- NOTE | 2018-09-03 16:00 | Hospitalist Progress Note ---
Date of Service September 03, 2018 Assessment & Plan (1) Left displaced femoral neck fracture: Presented with mechanical fall, losing balance Leading to displaced fracture of left femoral neck X-ray of hip shows osteopenia, Status post ORIF of left hip yesterday 09/02/2018 POD #1 Patient recovering well postoperatively Appreciate input from orthopedic PT OT evaluation appreciated, recommend rehab Continue pain control, ordered for scheduled dose of IV Tylenol Will try to avoid/limit narcotics pain medication, high risk for delirium and agitation with baseline dementia Present on Admission?: Yes (2) Hypokalemia: Corrected, No evidence of GI loss, no nausea vomiting or diarrhea Present on Admission?: Yes (3) Hypertension: Blood pressure remains stable, continue outpatient meds (4) Alzheimer's dementia: Baseline dementia, oriented to person only, with severe hearing impairment No noted behavioral issue Caution for sundowning/delirium Fall precaution, nursing asked to provide support and orientation frequently Present on Admission?: Yes (5) Vitamin D deficiency: Osteopenia with vitamin D deficiency, leading to fall and fracture of left hip Ordered for vitamin D and calcium supplement Present on Admission?: Yes (6) Acute blood loss as cause of postoperative anemia: Preop hemoglobin 14, Postop hemoglobin dropped to 10,-due to rama-postoperative blood loss No evidence of hemodynamic compromise, vitals stable Follow H&H, no indication of blood transfusion Added iron supplement CODE STATUS: Full code DVT prophylaxis: Moderate to high risk status post hip surgery Subcu Lovenox ordered as per orthopedics recommendation Need continued pharmacological anticoagulation at least for 4-6 weeks per ort hopedics protocol Disposition: Patient will need rehab Referral made to [facility] Social service following for discharge planning Spoke with patient's over phone, given update Present on Admission?: No Subjective Awake and alert, minimal communication-this patient is very hard of hearing, baseline dementia Appeared to be very pleasant, no sign of distress, smiling Vitals remained stable, no fever or chills Had physical therapy earlier today Physical Exam Vital Signs (Past 24 Hours): Last Vital Signs Temp 36.4 C L 09/03/18 15:29 Pulse 83 09/03/18 15:29 Resp 16 09/03/18 15:29 BP 127/74 09/03/18 15:29 Pulse Ox 92 09/03/18 15:29 Constitutional: WD/WN, vitals as above well developed; no acute distress Eyes: + anicteric sclerae ENMT: external ear and nose normal, oropharynx normal Ears: + hearing impairment Neck: trachea midline, no thyromegaly Respiratory: normal respiratory effort, lungs clear to auscultation Cardiovascular: RRR, no murmur, no edema Gastrointestinal (Abdomen): normal bowel sounds, soft, nontender, no hepatosplenomegaly Musculoskeletal: Hip: + hip abnormal to inpsection (s/p left hip arthroplasty ;surgical incision present ) Neurologic: PERRL, EOMI, accommodation nl, no face palsy, no dysarthria (dementia /very hard of hearing ) awake Psychiatric: Orientation: alert and oriented to person (Alzeimers dementia ) Affect: + flat affect (1) Alzheimer's dementia Alzheimer's disease onset: unspecified onset Dementia behavioral disturbance: without behavioral disturbance Qualified Code(s): G30.9 - Alzheimer's disease, unspecified; F02.80 - Dementia in other diseases classified elsewhere without behavioral disturbance
[2018-09-03] MEDS: ACETAMINOPHEN 1,000 MG/100 ML VIAL IV SCH (18:12)
[2018-09-03] MEDS: LACTATED RINGER'S 1,000 ML IV SCH (18:19)
[2018-09-03] MEDS: SENNA 8.6 MG TAB PO SCH (20:54)
[2018-09-03] MEDS: DOCUSATE SODIUM/SENNA 50/8.6MG TAB PO SCH (20:55)
[2018-09-04] MEDS: ACETAMINOPHEN 1,000 MG/100 ML VIAL IV SCH ×3 (01:59→17:49)
[2018-09-04 05:46] LABS: Basophils # (auto) 0.02 K/uL (0-0.2); Basophils % (auto) 0.3 %; Eosinophils # (auto) 0.43 K/uL (0-0.5); Eosinophils % (auto) 6.1 %; Hematocrit (blood only) 27.1 % (37-47); Immature Granulocytes # (auto) 0.02 K/uL (0.00-0.02); Immature Granulocytes % (auto) 0.3 %; Lymphocytes # (auto) 0.61 K/uL (1.2-3.4); Lymphocytes % (auto) 8.6 %; Mean Corpuscular Hgb Conc 33.2 g/dL (32-36); Mean Corpuscular Volume 93.1 fL (80-100); Mean Platelet Volume 9.7 fL (7.4-10.4); Monocytes # (auto) 0.64 K/uL (0.11-0.59); Neutrophils # (auto) 5.36 K/uL (1.4-6.5); Neutrophils % (auto) 75.7 %; Platelet Count 102 K/uL (130-400); RDW Coefficient of Variation 15.1 % (11.5-14.5); RDW Standard Deviation 51.3 fL (36.4-46.3); Red Blood Count 2.91 M/uL (4.2-5.4); White Blood Count 7.08 K/uL (4.8-10.8)
[2018-09-04 06:16] LABS: BUN Creatinine Ratio 19.5 (10-20); Calcium 8.3 mg/dl (8.5-10.1); Creatinine Clr Calc Pharmacy 45.9 ml/min; Est GFR (Non-African American) 81.1; Potassium 3.7 mmol/L (3.5-5.1)
[2018-09-04] MEDS: CALCIUM CARBONATE 500 MG CHEWABLE TAB PO SCH ×2 (09:12→20:20)
[2018-09-04] MEDS: ENOXAPARIN INJ 30 MG/0.3 ML SYR SQ SCH (09:13)
--- NOTE | 2018-09-04 09:32 | Orthopedic Progress Note ---
Date of Service September 04, 2018 Assessment & Plan (1) Left displaced femoral neck fracture: POD 2 s/p Left Bipolar Hemiarthroplasty. PT/OT; WBAT with walker DVT prophylaxis - Lovenox,SCD's,FEDERICO's Pain management - Tramadol, Hydromorphone, Tylenol DC Plans - [facility] vs SNF Subjective POD 2 s/p Left Bipolar Hemiarthroplasty Pt currently standing up in room undergoing PT session. Pt was able to take a few steps with help. Pt states her left hip hurts off and on at times. No other complaints currently. Pt appears to be in good spirits this AM. Pain appears controlled. Physical Exam Vital Signs (Past 24 Hours): Last Vital Signs Temp 36.2 C L 09/04/18 07:26 Pulse 77 09/04/18 07:26 Resp 16 09/04/18 07:26 BP 143/77 H 09/04/18 07:26 Pulse Ox 92 09/04/18 07:26 Physical Exam: Silverlon dressing intact but has some noted drainage where an ABD had to be applied. Moderate drainage in the dressing window. Thigh soft, NT. Calves soft, NT. NV intact. Hip appears located.
[2018-09-04] MEDS: LACTATED RINGER'S 1,000 ML IV SCH (13:36)
--- NOTE | 2018-09-04 18:31 | Hospitalist Progress Note ---
Date of Service September 04, 2018 Assessment & Plan (1) Acute blood loss as cause of postoperative anemia: hb pre op 12 post op 10-< 9 no sign of hemodynamic compromise ordered for fe supplement no indication of PRBC transfusion Present on Admission?: No (2) Vitamin D deficiency: low Vit K Xray of hip shows osteopenia traumatic fx of left hip after fall on level surface due to underlying osteopenia /osteoporesis added Ca and vit Supplement (3) Left displaced femoral neck fracture: S/P ORIF recovering well post op appreciate Ortho eval wt bearing as tolerated with walker PT/Ot eval appreciated needed acute rehab referral made to [facility] waiting bed availability (4) DVT prophylaxis: sub q Lovenox moderate to high risk post hip surgery limited mobility (5) Alzheimer's dementia: baseline dementia oriented to person able to identify family members very hard of hearing cont to provide reassueance caution for ing /delerium fall precaution ordered bed /chair alarm CODE STATUS : full code DISPOSITION : will need rehab referral made to [facility] plan to tx to rehab tomorrow if bed available will need wheel chair van transport updated over phone Subjective Awake and alert, minimal communication-this patient is very hard of hearing, baseline dementia Appeared to be very pleasant, no sign of distress, smiling Vitals remained stable, no fever or chills Had physical therapy earlier today Physical Exam Vital Signs (Past 24 Hours): Last Vital Signs Temp 36.7 C 09/04/18 15:15 Pulse 80 09/04/18 15:15 Resp 19 09/04/18 15:15 BP 132/70 09/04/18 15:15 Pulse Ox 93 09/04/18 15:15 Constitutional: WD/WN, vitals as above well developed; no acute distress Eyes: + anicteric sclerae ENMT: external ear and nose normal, oropharynx normal Ears: + hearing impairment Neck: trachea midline, no thyromegaly Respiratory: normal respiratory effort, lungs clear to auscultation Cardiovascular: RRR, no murmur, no edema Gastrointestinal (Abdomen): normal bowel sounds, soft, nontender, no hepatosplenomegaly Musculoskeletal: Hip: + hip abnormal to inpsection (s/p left hip arthroplasty ;surgical incision present ) Neurologic: PERRL, EOMI, accommodation nl, no face palsy, no dysarthria (dementia /very hard of hearing ) awake Psychiatric: Orientation: alert and oriented to person (Alzeimers dementia ) Affect: + flat affect (1) Alzheimer's dementia Alzheimer's disease onset: unspecified onset Dementia behavioral disturbance: without behavioral disturbance Qualified Code(s): G30.9 - Alzheimer's disease, unspecified; F02.80 - Dementia in other diseases classified elsewhere without behavioral disturbance
[2018-09-04] MEDS: SENNA 8.6 MG TAB PO SCH (20:20)
[2018-09-04] MEDS: DOCUSATE SODIUM/SENNA 50/8.6MG TAB PO SCH (20:21)
[2018-09-05] MEDS: ACETAMINOPHEN 1,000 MG/100 ML VIAL IV SCH ×2 (02:18→10:06)
[2018-09-05 07:11] LABS: Basophils # (auto) 0.03 K/uL (0-0.2); Basophils % (auto) 0.5 %; Eosinophils # (auto) 0.52 K/uL (0-0.5); Eosinophils % (auto) 8.2 %; Hematocrit (blood only) 27.2 % (37-47); Hemoglobin 9.2 g/dL (12.0-16.0); Immature Granulocytes # (auto) 0.05 K/uL (0.00-0.02); Immature Granulocytes % (auto) 0.8 %; Lymphocytes # (auto) 0.74 K/uL (1.2-3.4); Lymphocytes % (auto) 11.6 %; Mean Corpuscular Hgb Conc 33.8 g/dL (32-36); Mean Corpuscular Volume 92.8 fL (80-100); Mean Platelet Volume 9.6 fL (7.4-10.4); Monocytes # (auto) 0.59 K/uL (0.11-0.59); Monocytes % (auto) 9.3 %; Neutrophils # (auto) 4.44 K/uL (1.4-6.5); Neutrophils % (auto) 69.6 %; Platelet Count 132 K/uL (130-400); RDW Coefficient of Variation 15.2 % (11.5-14.5); RDW Standard Deviation 51.8 fL (36.4-46.3); Red Blood Count 2.93 M/uL (4.2-5.4); White Blood Count 6.37 K/uL (4.8-10.8)
[2018-09-05 07:28] LABS: BUN Creatinine Ratio 16.2 (10-20); Calcium 8.3 mg/dl (8.5-10.1); Creatinine Clr Calc Pharmacy 45.9 ml/min; Est GFR (Non-African American) 81.1; Potassium 3.3 mmol/L (3.5-5.1)
[2018-09-05] MEDS: ENOXAPARIN INJ 30 MG/0.3 ML SYR SQ SCH (08:21)
[2018-09-05] MEDS: CALCIUM CARBONATE 500 MG CHEWABLE TAB PO SCH (08:21)
[2018-09-05] MEDS: LACTATED RINGER'S 1,000 ML IV SCH (08:26)
--- NOTE | 2018-09-05 08:47 | Orthopedic Progress Note ---
Date of Service September 05, 2018 Assessment & Plan (1) Left displaced femoral neck fracture: (1) Left displaced femoral neck fracture: POD 3 s/p Left Bipolar Hemiarthroplasty. PT/OT; WBAT with walker DVT prophylaxis - Lovenox,SCD's,FEDERICO's Pain management - Tramadol, Hydromorphone, Tylenol DC Plans - [facility] vs SNF ORTHO will sign off at this time. DC instructions placed in EMR. F/U with Dr Kelly in 2 weeks from the day of surgery. Subjective Pt sitting in chair at bedside with breakfast. No complaints this AM. Comfortable. States that her hip feels "ok" this AM. Some pain when getting OOB. D Denies SOB, CP, LH. Physical Exam Vital Signs (Past 24 Hours): Last Vital Signs Temp 37.0 C 09/05/18 07:19 Pulse 91 H 09/05/18 07:19 Resp 18 09/05/18 07:19 BP 154/79 H 09/05/18 07:19 Pulse Ox 94 09/05/18 07:19 Physical Exam: Silverlon dressing intact with minimal drainage. Calves soft, NT. NV intact. Toes mobile. Hip appears located.
--- NOTE | 2018-09-05 14:21 | Discharge Summary ---
Date of Service September 05, 2018 Admission HPI Per Admitting Provider 88-year-old female who presents to the ED after having a fall and subsequent left hip pain at home today. Patient has underlying Alzheimer's and also received pain medication in the ED, history is unobtainable for her at this time. History is obtained by and caregiver who are at the bedside. reports that he was getting a drink for the patient and when he went to handed to her, he placed his hand on her shoulder and patient took a step forward and then fell to the ground. There was no associated loss of consciousness nor did patient strike her head. Caregiver and reports the patient has been doing well recently. She has chronic exertional shortness of breath which is unchanged from baseline. She also has chronic low back pain with which makes it difficult for her to ambulate at times. No reports of chest pain. No lightheadedness, dizziness, diaphoresis, syncopal events. No reports of abdominal pain, nausea, vomiting, diarrhea. No fevers or chills. No urinary symptoms. In the ED, patient is found to have a displaced left femoral neck fracture. Labs show WBC 17 K K+ 3.4, mildly elevated BUN at 22. Initial troponin is negative, EKG demonstrates an unchanged right bundle branch block. Principal Diagnosis Fall/left hip fracture that is post left total hip arthroplasty Discharge Exam Constitutional WD/WN, vitals as above well developed; no acute distress Eyes + anicteric sclerae ENMT external ear and nose normal, oropharynx normal Ears: + hearing impairment Neck trachea midline, no thyromegaly Respiratory normal respiratory effort, lungs clear to auscultation Cardiovascular RRR, no murmur, no edema Gastrointestinal (Abdomen) normal bowel sounds, soft, nontender, no hepatosplenomegaly Musculoskeletal Hip: + hip abnormal to inpsection (s/p left hip arthroplasty ;surgical incision present ) Neurologic PERRL, EOMI, accommodation nl, no face palsy, no dysarthria (dementia /very hard of hearing ) awake Psychiatric Orientation: alert and oriented to person (Alzeimers dementia ) Affect: + flat affect Discharge Data Allergies Allergy/AdvReac Type Severity Reaction Status Date / Time No Known Allergies Allergy Verified 09/01/18 20:31 Consultations 09/01/18 20:56 ED Decision to Admit Stat 09/01/18 23:11 Consult Anesthesiology Routine Consult Case Management - Discharge Planning Routine Consult Case Management - Discharge Planning Routine Consult Orthopedic Surgery Routine 09/02/18 18:18 Consult Case Management - Discharge Planning Routine Procedures Performed Operation Date: 09/02/18 07:00 Actual Procedures p Left Bipolar Hemiarthroplasty cemented(Left) - Sameer Kelly DO Ordered Studies 09/01/18 19:29 CT head/brain wo con Stat Hospital Course (1) Acute blood loss as cause of postoperative anemia: Assessment & Plan (1) Acute blood loss as cause of postoperative anemia: hb pre op 12 post op 10-< 9 no sign of hemodynamic compromise ordered for fe supplement no indication of PRBC transfusion Present on Admission?: No (2) Vitamin D deficiency: low Vit D Xray of hip shows osteopenia traumatic fx of left hip after fall on level surface due to underlying osteopenia /osteoporesis added Ca and vit D Supplement (3) Left displaced femoral neck fracture: S/P ORIF recovering well post op appreciate Ortho eval wt bearing as tolerated with walker PT/Ot eval appreciated will need acute rehab stable to transfer to [facility] (4) DVT prophylaxis: sub q Lovenox (5) Alzheimer's dementia: baseline dementia oriented to person able to identify family members very hard of hearing cont to provide reassurance caution for sundowning /delirium fall precaution CODE STATUS : full code DISPOSITION : Stable to be transferred to [facility] today Total Time Total Time Spent Total Time Spent (In Minutes): Approximate 40 minutes Total Time Includes: Examination of the Patient, Discharge Planning, Medication Reconciliation and Communication With Other Providers Discharge Plan Discharge Items Patient Disposition: Transfer Inpatient Rehab Fac Reason For Visit: LEFT HIP FRACTURE Discharge Diagnosis: FALL /LEFT HIP FRACTURE S/P LEFT TOTAL HIP ARTHOPLASTY Discharge Goals: Decrease discomfort, Diagnostic testing and Therapeutic intervention Activity: Per 'Additional Instructions' section Non-emergency contact: Primary Care Provider Call non-emergency contact if: you have any medication questions Follow-up/Referrals: Hermelindo Baum DO [Primary Care Provider] - Sameer Kelly DO [Physician] - (IN 2 WEEKS ) Diet: Regular Diet Texture: Dental soft (bite-sized) Addtl Provider Instructions: ACTIVITY RECOMMENDATIONS: SELF CARE INSTRUCTIONS AFTER LEFT HIP HEMIARTHOPLASTY Until the incision and soft tissues around your hip have healed, there is a possibility that the hip prosthesis could dislocate. A. Observe the following precautions to prevent dislocation: 1. Don't bend your hip greater than 90 degrees. 2. Avoid crossing your legs or ankles while standing or lying. 3. Sit with your feet placed 6 inches apart. 4. When sitting, keep your knees below your hips. Sit on a firm surface, avoid deep, soft chairs and couches. Use an elevated toilet seat in the bathroom. 5. Don't bend over at the waist. Use a long handled shoehorn and a sock aid to help you put on your shoes and socks. A heat set operator can help you picking table worker objects that are too high or too low to reach. 6. Keep car riding to a minimum for at least one month after surgery. B. Your balance may be shaky for a while. Use crutches or a walker until directed by your doctor. C. Use hand rails when walking on stairs. D. Wear low heeled shoes with non-slip soles. E. Be sure that your floors are free of things that could trip you - throw rugs, electrical cords, small objects. Avoid wet and waxed floors, especially with crutches and canes. F. Try to walk several times a day with rest periods between. G. Continue with all the exercises taught to you in the hospital. Again, make walking a part of your daily routine. SPECIAL CARE INSTRUCTIONS: VERY IMPORTANT TO READ AND REVIEW A. You may still be at risk for phlebitis and blood clots. 1. Wear surgical stockings (FEDERICO hose) for 2 weeks after surgery to improve circulation and reduce swelling. 2. TAKE LOVENOX 30MG INJECTION ONCE DAILY FOR 2 -4 WEEKS OR DIRECTED BY YOUR PHYSICIAN. 3. High risk patients may be prescribed a stronger blood thinner if necessary. 4. If you are on Coumadin normally, your family doctor/track grinder operator should monitor your blood work. Expect a phone call the day of or the day after bloodwork is drawn to adjust your dosage. B. You must take antibiotics before having dental work, bladder, bowel and oth er surgery. Your doctor will provide you with a permanent card to carry describing precautions. C. Call [facility] if you have a fever, redness or swelling around the incision, cloudy drainage from incision, or sudden increase in pain in your hip, not relieved by your regular pain medication. D. Please call the office at if you have any concerns or questions about your operation or recovery. * YOU MAY SHOWER, NO TUB BATHS UNTIL CLEARED BY YOUR DOCTOR. * WEAR FEDERICO HOSE 20 HOURS PER DAY FOR 2 WEEKS. * YOU SHOULD USE A WALKER OR CRUTCHES FOR 2-4 WEEKS. THIS WILL HELP PREVENT STRAIN ON YOUR HIP MUSCLE AND ALLOW IT TO HEAL PROPERLY. YOU MAY WEAN TO A CANE TOLERATED. * MOST PATIENTS WILL HAVE HOME NURSING FOR THERAPY. IF YOU DECIDE TO DO OUTPATIENT PHYSICAL THERAPY, PLEASE SCHEDULE THIS 3 TIMES PER WEEK. * Silverlon- This is a large adhesive bandage that contains silver ions. This helps your incision heal by fighting off bacteria and protecting it from the outside environment. You are permitted to shower with this dressing. This will remain on your incision for 7 days and then should be removed. Some visible blood or drainage through the dressing window is normal. If there is significant drainage or leaking noted before the 7 days notify your doctor's office immediately. Once removed, keep incision clean and dry. If there is any drainage or redness noted, please call your surgeon. . FOLLOW UP VISIT: If appointment is not already scheduled: Please call [facility] to make a follow-up appointment for 2 weeks from the day of your surgery at . Prescriptions: New sennosides [Senokot] 8.6 mg Tablet 17.2 mg PO HS 30 Days Qty: 60 RF: 0 calcium carbonate [Tums] 200 mg calcium (500 mg) Tablet,Chewable 500 mg PO BID 30 Days Qty: 150 RF: 0 cholecalciferol (vitamin D3) [Vitamin D3] 1,000 unit tablet 1,000 units PO DAILY 30 Days Qty: 30 RF: 0 docusate sodium [Colace] 100 mg capsule 100 mg PO BID Qty: 60 RF: 0 enoxaparin [Lovenox] 30 mg/0.3 mL Syringe 30 mg subcut Q24H 14 Days Qty: 4.2 RF: 0 acetaminophen [Tylenol Extra Strength] 500 mg tablet 500 mg PO Q6H PRN (Reason: pain) Qty: 90 RF: 0 tramadol 50 mg tablet 50 mg PO Q6H PRN (Reason: pain) Qty: 14 RF: 0 Stand-Alone Forms: [facility] Discharge Orders: Discharge Order (Routine); Ordered 09/05/18 Ordered By: Khadra Davis Skilled Items Patient informed of condition?: Yes DNR: No Discharge Level of Care: Acute rehab Communicable Disease: No Discharge Prognosis: Stable Admission Data Admit Date/Time: 09/01/18 21:35 Attending Provider: Khadra Davis Admit Provider: Sha Dowell Primary Care Provider: Hermelindo Baum Other Providers: Sha Dowell ; Samir Fuentes ; Fermin Newton Service: Surgical Services Other Interventions: Discharge Summary Assessment (RN) Last Done: 09/05/18 13:33 DC Date/Time DO NOT enter until pt leaves facility: 09/05/18 14:20
== END 2018-09-05 14:20 | DRG 470 ==
LOC: EDBD → MERGE 19:12 → ED 19:12 → 3W 21:35

== ENCOUNTER 2018-09-18 23:21 | Observation (INO) ==
[2018-09-19] MEDS ORDERED: ACETAMINOPHEN 1,000 MG/100 ML VIAL IV STA (00:24)
[2018-09-19] MEDS ORDERED: SODIUM CHLORIDE 0.9% 1000ML 1,000 ML IV SCH ×2 (00:30→04:00)
[2018-09-19 00:41] LABS: Basophils # (auto) 0.02 K/uL (0-0.2); Basophils % (auto) 0.2 %; Eosinophils # (auto) 0.33 K/uL (0-0.5); Eosinophils % (auto) 3.8 %; Hematocrit (blood only) 32.9 % (37-47); Hemoglobin 10.7 g/dL (12.0-16.0); Immature Granulocytes % (auto) 1.1 %; Lymphocytes # (auto) 0.69 K/uL (1.2-3.4); Lymphocytes % (auto) 7.9 %; Mean Corpuscular Hgb Conc 32.5 g/dL (32-36); Mean Corpuscular Volume 95.9 fL (80-100); Mean Platelet Volume 9.2 fL (7.4-10.4); Monocytes # (auto) 0.97 K/uL (0.11-0.59); Monocytes % (auto) 11.1 %; Neutrophils % (auto) 75.9 %; Platelet Count 323 K/uL (130-400); RDW Coefficient of Variation 16.6 % (11.5-14.5); Red Blood Count 3.43 M/uL (4.2-5.4); White Blood Count 8.71 K/uL (4.8-10.8)
[2018-09-19 01:03] LABS: Albumin Level 3.3 gm/dl (3.4-5.0); BUN Creatinine Ratio 26.3 (10-20); Calcium 8.9 mg/dl (8.5-10.1); Creatinine Clr Calc Pharmacy 44.3 ml/min; Est GFR (African American) 87.3; Est GFR (Non-African American) 75.3; Potassium 4.1 mmol/L (3.5-5.1)
[2018-09-19 01:06] LABS: Bilirubin,Total 0.5 mg/dl (0.2-1); Globulin 3.4 gm/dl (2.5-4.0); Total Protein 6.7 gm/dl (6.4-8.2)
[2018-09-19] MEDS ORDERED: MoRPHine SULFATE 2 MG/ML CARP IV PRN (01:37)
--- NOTE | 2018-09-19 03:05 | Emergency Department Note ---
Entered by Jen Martinez acting as a scribe for Zee De La Paz DO History of Present Illness General Chief complaint: Fall Time Seen by Provider: 09/18/18 23:24 Source: other (produce team member, nurse) Mode of arrival: EMS Limitations: other (dementia) History of Present Illness Provider complaint: Fall Onset (ago): minute(s) (just prior to arrival) Location: lower extremity (knees) Pain Consistency: + other (episode) Quality: + other (fall) Associated symptoms: + other (Denies: abnormal behavior); no syncope Treatments prior to arrival: other (Toradol) The patient is an 88 year old female with a history of Alzheimer's, an oophorectomy, hypertension, and chronic lumbar pain who presents to the Emergency Room with complaints of an episode of a fall occurring just prior to arrival. Per nurse, the patient got up from bed and tried to go to the bathroom but failed to use her walker. He reports that the patient subsequently fell, and the patient's produce team member notes that the patient fell forward onto her knees. The produce team member states that this is likely how she found the patient after she heard the patient fall to the ground. She notes that the patient has been acting herself since the fall. The produce team member further reports that the patient last ate around 1800 today. The nurse adds that the patient just got out of rehab yesterday following a hip surgery performed by Dr. Kelly. Per nurse, the patient takes Toradol for pain and took a dose just prior to arrival. HPI limited secondary to dementia. Home Medications Home Medications Medication Instructions Recorded Confirmed Type acetaminophen [Tylenol Extra 500 mg PO Q6H PRN #90 tab 09/05/18 09/19/18 Rx Strength] calcium carbonate [Tums] 500 mg PO BID 30 Days #150 tab 09/05/18 09/19/18 Rx cholecalciferol (vitamin D3) 1,000 units PO DAILY 30 Days #30 09/05/18 09/19/18 Rx [Vitamin D3] tab docusate sodium [Colace] 100 mg PO BID #60 cap 09/05/18 09/19/18 Rx tramadol 50 mg PO Q6H PRN #14 tab 09/05/18 09/19/18 Rx Allergies Allergy/AdvReac Type Severity Reaction Status Date / Time No Known Allergies Allergy Verified 09/19/18 00:53 Past Med/Surg History Medical History Vitamin D deficiency (Chronic) Left displaced femoral neck fracture (Acute) Hip fracture, right (Resolved) s/p repair C. difficile colitis (Resolved) Right patella fracture (Resolved) Ovarian cyst (Resolved) Hypertension (Chronic) Alzheimer's dementia (Chronic) Chronic lumbar pain (Chronic) Lumbar compression fracture (Resolved) Hx of right bundle branch block (Chronic) Surgical History H/O oophorectomy (Chronic) Family History Sister Stroke Social History Preferred Language: Togolese Communication Ability: Impaired Beliefs That Will Affect Care: None marital status: Current Living Situation: Spouse and Other Current Living Situation Comment: caregivers 7-8 hours/day current occupational status: retired Feels Safe at Home: Yes Smoking Status: Never smoker Hx Alcohol Use: Yes Alcohol type: beer Hx Substance Use: No Review of Systems Other (Limited secondary to dementia) Physical Exam Vital Signs Vital Signs - 24 hr 09/18/18 23:31 09/19/18 01:41 09/19/18 01:45 Temperature 36.7 C Temperature Source Oral Sepsis Recent Fever Within 48 Hours No Sepsis Action Taken by Nursing No Action Required Pulse Rate 71 69 75 Respiratory Rate 18 24 20 Blood Pressure 143/71 H 135/80 Blood Pressure Mean 95 98 Pulse Oximetry 94 Oxygen Delivery Method Room Air 09/19/18 02:00 09/19/18 02:01 09/19/18 02:30 Temperature Temperature Source Sepsis Recent Fever Within 48 Hours Sepsis Action Taken by Nursing Pulse Rate 63 63 63 Respiratory Rate 26 H 25 H 22 Blood Pressure 132/70 Blood Pressure Mean 90 Pulse Oximetry Oxygen Delivery Method 09/19/18 02:31 09/19/18 03:00 09/19/18 03:01 Temperature Temperature Source Sepsis Recent Fever Within 48 Hours Sepsis Action Taken by Nursing Pulse Rate 64 64 67 Respiratory Rate 24 18 25 H Blood Pressure 141/74 H 145/78 H Blood Pressure Mean 96 100 Pulse Oximetry Oxygen Delivery Method 09/19/18 03:30 09/19/18 03:31 09/19/18 04:00 Temperature Temperature Source Sepsis Recent Fever Within 48 Hours Sepsis Action Taken by Nursing Pulse Rate 66 65 65 Respiratory Rate 25 H 22 21 Blood Pressure 138/78 Blood Pressure Mean 98 Pulse Oximetry Oxygen Delivery Method 09/19/18 04:01 Temperature Temperature Source Sepsis Recent Fever Within 48 Hours Sepsis Action Taken by Nursing Pulse Rate 67 Respiratory Rate 23 Blood Pressure 143/79 H Blood Pressure Mean 100 Pulse Oximetry Oxygen Delivery Method GENERAL: alert, well appearing, well nourished, no distress, non-toxic EYE EXAM: normal conjunctiva, PERRL and EOM's grossly intact OROPHARYNX: no exudate, no erythema, lips, buccal mucosa, and tongue normal and mucous membranes are moist NECK: supple, no nuchal rigidity, no adenopathy, non-tender LUNGS: Clear to auscultation. Normal chest wall mechanics HEART: no murmurs, S1 normal and S2 normal ABDOMEN: abdomen soft, non-tender, normo-active bowel sounds, no masses, no rebound or guarding. BACK: Back is symmetrical on inspection and there is no deformity, no midline tenderness, no CVA tenderness. SKIN: no rashes and no bruising UPPER EXTREMITIES: upper extremities are grossly normal. FROM, nml pulses b/l. LOWER EXTREMITIES: No pitting edema. Rotated and malpositioned left lower extremity. Vertical incision noted over the left hip laterally, flakito intact, mild surrounding ecchymosis which appears to be healing, no drainage or bleeding from incision. Right hip nontender to palpation, no obvious deformity. Rest of extremity is unremarkable. NEURO EXAM: Normal sensorium, cranial nerves II-XII grossly intact, normal speech, no gross weakness of arms, no gross weakness of legs. No drift. Finger to nose intact. Gross sensation intact. Course 2328: The patient was evaluated in room A12B. A complete history and physical exam was performed. 2338: I reviewed the patient's recent admission and surgery for a left femoral neck fracture. 0021: I updated the caregiver and will call out to ortho at this time. 0028: I reviewed the patient's case with Dr. Ferrara - Orthopedic Surgery, [facility] [place]. 0037: I reviewed the patient's case with Dr. Ferrara again. He reviewed xrays and states this is a dislocation that could be reduced in the ER. Discussed with him concern given ASA category III and that I would contact anesthesia to see if they were available to assist with sedation while I perform reduction. 0045: I reviewed the patient's case with Dr. Livingston - [facility]est[facility]iology, [facility]. Dr. Livingston stated that he feels that the safest plan is to take patient to operation room in the morning. 0052: Upon reevaluation, the patient is resting. I discussed the findings and the treatment plan with the patient and caregiver. They both express agreement and understanding. The patient will be evaluated for further management. Consultations Consultation #1: I reviewed the patient's case with Dr. Ferrara - Orthopedic Surgery, [facility] [place]. Time: 00:28 Consultation #2: I reviewed the patient's case with Dr. Ferrara again. Time: 00:37 Consultation #3: I reviewed the patient's case with Dr. Livingston - Anesthesiology, [facility] [address] Dr. Livingston stated that he feels that the safest plan is to take patient to operation room in the morning. Time: 00:45 Additional Consultation(s): 0052: I spoke with [facility] Val[facility]. The patient will be evaluated for further management. Administered Medications Morphine Sulfate (Morphine Sulfate) 2 mg IV Q2H PRN PRN Reason: Pain Stop: 10/03/18 01:36 Last Admin: 09/19/18 01:43 Dose: 2 mg Documented by: [id number] Discontinued Medications Sodium Chloride (Nss 1000ml) 1,000 mls @ 125 mls/hr IV .Q8H TONO Stop: 10/19/18 00:29 Last Admin: 09/19/18 00:33 Dose: 125 mls/hr Documented by: [id number] Acetaminophen (Ofirmev) 1,000 mg in 100 mls @ 400 mls/hr IV NOW STA Stop: 09/19/18 00:38 Last Infusion: 09/19/18 01:04 Dose: 0 mls/hr Documented by: [id number] Admin: 09/19/18 00:33 Dose: 400 mls/hr Documented by: [id number] Medical Decision Making Differential Diagnosis Differential diagnosis: Etiologies such as fracture, dislocation, neurovascular compromise, compartment syndrome, soft tissue injury, as well as others were entertained. Medical Records Attestation: I reviewed the patient's medical records. Home Medications Current Medication List: was personally reviewed by me Laboratory Data Attestation: I reviewed the patient's lab results. Result diagrams: 09/19/18 00:31 09/19/18 00:31 Lab Results 09/19/18 09/19/18 Range/Units 00:31 00:31 WBC 8.71 (4.8-10.8) K/uL RBC 3.43 L (4.2-5.4) M/uL Hgb 10.7 L (12.0-16.0) g/dL Hct 32.9 L (37-47) % MCV 95.9 (80-100) fL MCH 31.2 (25-34) pg MCHC 32.5 (32-36) g/dL RDW Std Deviation 57.0 H (36.4-46.3) fL RDW Coeff of Kelly 16.6 H (11.5-14.5) % Plt Count 323 (130-400) K/uL MPV 9.2 (7.4-10.4) fL Immature Gran % (Auto) 1.1 % Neut % (Auto) 75.9 % Lymph % (Auto) 7.9 % [place] % (Auto) 11.1 % Eos % (Auto) 3.8 % Baso % (Auto) 0.2 % Immature Gran # (Auto) 0.10 H (0.00-0.02) K/uL Neut # (Auto) 6.60 H (1.4-6.5) K/uL Lymph # (Auto) 0.69 L (1.2-3.4) K/uL [place] # (Auto) 0.97 H (0.11-0.59) K/uL Eos # (Auto) 0.33 (0-0.5) K/uL Baso # (Auto) 0.02 (0-0.2) K/uL Sodium 139 (136-145) mmol/L Potassium 4.1 (3.5-5.1) mmol/L Chloride 109 H (98-107) mmol/L Carbon Dioxide 26 (21-32) mmol/L Anion Gap 4.0 (3-11) BUN 19 H (7-18) mg/dl Creatinine 0.72 (0.6-1.2) mg/dl Est Cr Clr Drug Dosing 44.3 ml/min Est GFR ( Amer) 87.3 Est GFR (Non-Af Amer) 75.3 BUN/Creatinine Ratio 26.3 H (10-20) Glucose 111 H (70-99) mg/dl Calcium 8.9 (8.5-10.1) mg/dl Magnesium 2.5 H (1.8-2.4) mg/dl Total Bilirubin 0.5 (0.2-1) mg/dl AST 23 (15-37) U/L ALT 39 (12-78) U/L Alkaline Phosphatase 97 (45-117) U/L Total Protein 6.7 (6.4-8.2) gm/dl Albumin 3.3 L (3.4-5.0) gm/dl Globulin 3.4 (2.5-4.0) gm/dl Albumin/Globulin Ratio 1.0 (0.9-2) Imaging Data Attestation: I personally reviewed and interpreted this imaging study as follows: My Impression: Radiology results as stated below per my review and interpretation: XR hip LT 2-3V with pelvis Findings: Dislocation of the left hip hardware. XR chest 1V Findings: No cardiomegaly, no effusion, no wide mediastinum, no focal consolidation. Radiologist's Impression: Radiology results as stated below per my review and the radiologist's interpretation: CT HEAD: Comparison is made to prior CT head on 09/01/2018. No acute intracranial abnormality identified. Stable chronic small vessel ischemic disease and cerebral volume loss. 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 Atherosclerotic calcifications in the intracranial vasculature. Radiologist: Alessandra Peraza MD Study ready at 0203 and initial results transmitted at 0220. CT C SPINE: Comparison is made to cervical spine radiographs on 07/27/2008. No acute traumatic abnormality identified. Osteopenia. Degenerative changes of the spine. Stable mild anterolisthesis of C3 on C4. Dental disease partially visualized. Interlobular septal thickening at the lung apices. Heterogeneous thyroid could be further evaluated with nonemergent dedicated ultrasound if clinically indicated. Radiologist: Alessandra Peraza MD Study ready at 0204 and initial results transmitted at 0222. Blood Pressure Blood Pressure Findings: Normal blood pressure MDM Narrative Patient is an elderly demented woman who presented here following a fall. Patient in no acute distress. Patient found to have a left hip dislocation. Initial concern for possible surgical intervention in case discussed with orthopedics. Dr. antoine of I did review the x-rays and felt this could be reduced in the emergency room. Given patient's previously recorded ASA classification as noted by anesthesia 2 weeks ago, concern for possible a nesthesia involvement. I discussed the case with Dr. Livingston who felt the safest option would be for the patient to be admitted overnight and for the hip to be reduced in the operating room with anesthesia present by orthopedics. I initially contacted Dr. Calderón then regarding medical admission, however was then tied up with 2 other priority patients and could not officially discussed the case until sometime later. During this interim patient had been started on IV, basic labs drawn, Vann catheter placed, and pain medication ordered as needed. Patient's caregiver was aware of all results, and stated that they did try to contact the daughter who is also the power of state attorney as well as the patient and her are demented. CT head/cspine also added as a precaution given unwitnessed fall and dementia and were unremarkable. No other physical evidence of trauma. Impression & Plan Dislocation of left hip, Fall, Alzheimer's dementia Discharge Plan Visit Data Chief Complaint: Fall Other Complaint: Hip Pain ED Provider: Zee De La Paz Discharge Problem: Dislocation of left hip, Fall, Alzheimer's dementia Patient Disposition: Admitted As Inpatient Discharge Instructions Interventions: ED Discharge Assessment Last Done: 09/19/18 04:05 The scribe's documentation has been prepared under my direction and personally reviewed by me in its entirety. I confirm that the note above accurately reflects all work, treatment, procedures, and medical decision making performed by me.
[2018-09-19 03:12] LABS: Magnesium 2.5 mg/dl (1.8-2.4)
--- NOTE | 2018-09-19 03:39 | History & Physical Report ---
Date of Service September 19, 2018 Assessment & Plan (1) Dislocation of left hip: Recent history left hip fracture surgery Situational hypertension dementia as per records Postop anemia, hemoglobin at baseline past tobacco abuse OBS F Orthopedics consult RE left hip dislocation (ER provider already in touch with Dr. Ferrara.) No medical contraindication to contemplated Orthopedic procedure. Delirium precautions. DVT prophylaxis SCDs RE possible surgery Recommend pharmacologic anticoagulation with Lovenox 30 mg SQ daily once bleeding risk is deemed to be minimal and negligible pending Orthopedics evaluation. Full code for now (CODE STATUS needs to be addressed with patient's daughter/POA, Ms. Gila Ochoa. Contact #[phone]. No answer on first attempt to contact.) History of Present Illness Chief Complaint: Left hip pain as per records Primary Care Provider: Hermelindo Baum, History obtained from patient, caregiver, and records. Unable to obtain history the patient secondary to dementia and sedated state. Medical history significant for dementia, GERD, arthritis, skin cancer, osteoarthritis, past tobacco abuse. Recent confinement 2 weeks ago for left hip fracture status post surgery Patient initially discharged to have hospital later home. As per records, patient fell on her left side while walking to the bathroom without her walker. Patient noted left hip pain. Patient brought to the emergency room. 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 caregivers Allergies Allergy/AdvReac Type Severity Reaction Status Date / Time No Known Allergies Allergy Verified 09/19/18 00:53 Home Medications Home Medications Medication Instructions Recorded Confirmed Type acetaminophen [Tylenol Extra 500 mg PO Q6H PRN #90 tab 09/05/18 09/19/18 Rx Strength] calcium carbonate [Tums] 500 mg PO BID 30 Days #150 tab 09/05/18 09/19/18 Rx cholecalciferol (vitamin D3) 1,000 units PO DAILY 30 Days #30 09/05/18 09/19/18 Rx [Vitamin D3] tab docusate sodium [Colace] 100 mg PO BID #60 cap 09/05/18 09/19/18 Rx tramadol 50 mg PO Q6H PRN #14 tab 09/05/18 09/19/18 Rx Past Med/Surg History Medical History Vitamin D deficiency (Chronic) Left displaced femoral neck fracture (Acute) Hip fracture, right (Resolved) s/p repair C. difficile colitis (Resolved) Right patella fracture (Resolved) Ovarian cyst (Resolved) Hypertension (Chronic) Alzheimer's dementia (Chronic) Chronic lumbar pain (Chronic) Lumbar compression fracture (Resolved) Hx of right bundle branch block (Chronic) Surgical History H/O oophorectomy (Chronic) Family History Sister Stroke Social History Preferred Language: [place] Communication Ability: Impaired Communication Ability Comment: confused, [place] [employer] Worker Required: No Beliefs That Will Affect Care: None marital status: Current Living Situation: Spouse Current Living Situation Comment: caregivers; 24 hr a day per ER report current occupational status: retired Other Information That Helps Us Care for You: No Feels Safe at Home: Yes Safety Concerns: Feels Safe At This Time Smoking Status: Former smoker Hx Alcohol Use: Yes Alcohol type: beer Hx Substance Use: No Review of Systems Review of Systems: Could not be reliably obtained Physical Exam Physical Exam: GENERAL: Lethargic, no respiratory distress SKIN: Pallor, warm HEENT: Pale palpebral conjunctivae, no ptosis, dry buccal mucosa NECK : Supple, no tenderness CHEST : Decreased effort, no tenderness HEART : RRR, no obvious murmurs ABDOMEN: Soft, nontender EXTREMITIES : Left hip tenderness, no other conspicuous deformities noted NEUROLOGIC : Lethargic, no facial asymmetry, no other gross focality Results & Data Vital Signs (Past 12 Hours) Vital Signs Temp Pulse Resp BP Pulse Ox 09/19/18 02:00 63 26 H 09/19/18 01:45 75 20 09/19/18 01:41 69 24 135/80 09/18/18 23:31 36.7 C 71 18 143/71 H 94 Laboratory Results Laboratory Results WBC 8.71 K/uL (4.8-10.8) 09/19/18 00:31 RBC 3.43 M/uL (4.2-5.4) L 09/19/18 00:31 Hgb 10.7 g/dL (12.0-16.0) L 09/19/18 00:31 Hct 32.9 % (37-47) L 09/19/18 00:31 MCV 95.9 fL (80-100) 09/19/18 00:31 MCH 31.2 pg (25-34) 09/19/18 00: MCHC 32.5 g/dL (32-36) 09/19/18 00:31 RDW Std Deviation 57.0 fL (36.4-46.3) H 09/19/18 00: RDW Coeff of Kelly 16.6 % (11.5-14.5) H 09/19/18 00:31 Plt Count 323 K/uL (130-400) 09/19/18 00:31 MPV 9.2 fL (7.4-10.4) 09/19/18 00:31 Immature Gran % (Auto) 1.1 % 09/19/18 00:31 Neut % (Auto) 75.9 % 09/19/18 00:31 Lymph % (Auto) 7.9 % 09/19/18 00:31 [place] % (Auto) 11.1 % 09/19/18 00:31 Eos % (Auto) 3.8 % 09/19/18 00:31 Baso % (Auto) 0.2 % 09/19/18 00:31 Immature Gran # (Auto) 0.10 K/uL (0.00-0.02) H 09/19/18 00:31 Neut # (Auto) 6.60 K/uL (1.4-6.5) H 09/19/18 00:31 Lymph # (Auto) 0.69 K/uL (1.2-3.4) L 09/19/18 00:31 [place] # (Auto) 0.97 K/uL (0.11-0.59) H 09/19/18 00:31 Eos # (Auto) 0.33 K/uL (0-0.5) 09/19/18 00:31 Baso # (Auto) 0.02 K/uL (0-0.2) 09/19/18 00:31 Sodium 139 mmol/L (136-145) 09/19/18 00:31 Potassium 4.1 mmol/L (3.5-5.1) 09/19/18 00:31 Chloride 109 mmol/L (98-107) H 09/19/18 00:31 Carbon Dioxide 26 mmol/L (21-32) 09/19/18 00:31 Anion Gap 4.0 (3-11) 09/19/18 00:31 BUN 19 mg/dl (7-18) H 09/19/18 00:31 Creatinine 0.72 mg/dl (0.6-1.2) 09/19/18 00:31 Est Cr Clr Drug Dosing 44.3 ml/min 09/19/18 00:31 Est GFR ( Amer) 87.3 09/19/18 00:31 Est GFR (Non-Af Amer) 75.3 09/19/18 00:31 BUN/Creatinine Ratio 26.3 (10-20) H 09/19/18 00:31 Glucose 111 mg/dl (70-99) H 09/19/18 00:31 Calcium 8.9 mg/dl (8.5-10.1) 09/19/18 00:31 Magnesium 2.5 mg/dl (1.8-2.4) H 09/19/18 00:31 Total Bilirubin 0.5 mg/dl (0.2-1) 09/19/18 00:31 AST 23 U/L (15-37) 09/19/18 00:31 ALT 39 U/L (12-78) 09/19/18 00:31 Alkaline Phosphatase 97 U/L (45-117) 09/19/18 00:31 Total Protein 6.7 gm/dl (6.4-8.2) 09/19/18 00:31 Albumin 3.3 gm/dl (3.4-5.0) L 09/19/18 00:31 Globulin 3.4 gm/dl (2.5-4.0) 09/19/18 00:31 Albumin/Globulin Ratio 1.0 (0.9-2) 09/19/18 00:31 Diagnostic Findings Chest x-ray as per my interpretation cardiomegaly Pelvis x-ray as per my interpretation dislocated postop left hip CT head initial read no acute pathology, cerebral atrophy CT cervical spine no acute traumatic abnormality identified, osteopenia, stable mild anterolisthesis of C3 on C4 (1) Dislocation of left hip Encounter type: initial encounter Qualified Code(s): S73.005A - Unspecified dislocation of left hip, initial encounter
[2018-09-19] MEDS ORDERED: MAGNESIUM HYDROXIDE SUSP 30 ML UDC PO PRN ×2 (03:53→11:05)
[2018-09-19] MEDS ORDERED: ACETAMINOPHEN 325 MG TAB PO PRN (03:53)
[2018-09-19] MEDS ORDERED: NALOXONE HCL 0.4 MG/1 ML VIAL/CARP IV PRN ×2 (03:53→11:05)
[2018-09-19] MEDS ORDERED: TRAMADOL HCL 50 MG TABLET PO PRN (04:22)
--- NOTE | 2018-09-19 06:39 | XRay Report ---
XR chest 1V portable CLINICAL HISTORY: trauma COMPARISON STUDY: 09/01/2018 FINDINGS: The heart is mildly enlarged. There is aortic tortuosity. There is a retrocardiac opacity c onsistent with a hiatal hernia. There is no acute rectal consolidation. There is upper lobe interstit ial thickening, likely chronic. There is a nodular opacity in the left superhilar region, likely repr esenting a summation. No pneumothorax is visualized.[ IMPRESSION: 1. Cardiomegaly. No evidence of failure 2. No pneumothorax identified 3. Upper lobe interstitial opacities, likely chronic 4. 1 cm left superhilar opacity, statistically representing a summation as no mass was visualized on the chest x-ray performed 2 weeks prior. It would nevertheless seem prudent to obtain a three-month follow-up PA and lateral examination. Electronically signed by: David Hatfield M.D. 09/19/2018 6:37 AM
--- NOTE | 2018-09-19 06:40 | XRay Report ---
XR hip LT 2-3V w pelvis CLINICAL HISTORY: Hip pain status post trauma COMPARISON: 09/02/2018 DISCUSSION: There is superior dislocation of the patient's bipolar left hip arthroplasty. The crossta ble lateral view is limited and is difficult to determine whether dislocations anterior or posterior. IMPRESSION: Dislocated bipolar left hip arthroplasty. Electronically signed by: David Hatfield M.D. 09/19/2018 6:39 AM
--- NOTE | 2018-09-19 07:26 | CT Scan Report ---
CT head/brain wo con CLINICAL HISTORY: Head trauma. Dementia.] Pain. COMPARISON STUDY: 09/01/2018 TECHNIQUE: Axial CT of the brain is performed from the vertex to the skull base. IV contrast was not administered for this examination. A dose lowering technique was utilized adhering to the principles of ALARA. CT DOSE: 981.74 mGy.cm FINDINGS: No intra or extra-axial mass lesions are visualized. There is no CT evidence of acute cortical infarc tion. There is no evidence of midline shift. There is no acute hemorrhage. No calvarial fractures ar e visualized. There are patchy white matter hypodensities likely on a small vessel basis. 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 There is stable ventricular dilatation, likely secondary to global volume loss. There is no evidence of acute sinusitis IMPRESSION: No acute intracranial findings Electronically signed by: David Hatfield M.D. 09/19/2018 7:24 AM
--- NOTE | 2018-09-19 07:40 | CT Scan Report ---
CT OF THE CERVICAL SPINE CLINICAL HISTORY: Neck pain status post trauma. Dementia. COMPARISON STUDY: X-ray the cervical spine performed in July 2008 CT DOSE: TECHNIQUE: CT scan of the cervical spine was performed from the skull base to the thoracic inlet. Marija ges are reviewed in the axial, sagittal, and coronal planes. IV contrast was not administered for thi s examination. A dose lowering technique was utilized adhering to the principles of ALARA. FINDINGS: The visualized portions of the lung apices reveal no evidence of pneumothorax. The prevertebral soft tissues are normal. No fractures or traumatic subluxations are visualized. There are multilevel degenerative changes. 3 mm of anterior subluxation of C3 on C4 is felt to be deg enerative. Minimal retrolisthesis of C4 on C5 is also felt to be degenerative. IMPRESSION: 1. Stable anterolisthesis of C3 on C4, finding which is felt to be degenerative 2. No acute fractures or traumatic subluxations identified. Electronically signed by: David Hatfield M.D. 09/19/2018 7:39 AM
--- NOTE | 2018-09-19 08:14 | Anesthesiology Consultation ---
Date of Service September 19, 2018 Assessment & Plan (1) Encounter for pre-operative examination: Chart Review Chart Review: Acceptable Risk for Surgery NPO Date Last Intake of Fluids: 09/18/18 Time Last Intake of Fluids: 23:59 Date Last Intake of Solids: 09/18/18 Time Last Intake of Solids: 23:59 History Surgery Operation Date: 09/19/18 08:30 Proposed Procedures p Closed Reduction Extremity - Jorden Ferrara MD Height/Weight Height: 5 ft 3 in Weight: 48.5 kg Allergies Allergy/AdvReac Type Severity Reaction Status Date / Time No Known Allergies Allergy Verified 09/19/18 00:53 Medications Home Medications Medication Instructions Recorded Confirmed Last Taken acetaminophen [Tylenol Extra 500 mg PO Q6H PRN #90 tab 09/05/18 09/19/18 Unknown Strength] calcium carbonate [Tums] 500 mg PO BID 30 Days #150 tab 09/05/18 09/19/18 cholecalciferol (vitamin D3) 1,000 units PO DAILY 30 Days #30 09/05/18 09/19/18 09/18/18 [Vitamin D3] tab docusate sodium [Colace] 100 mg PO BID #60 cap 09/05/18 09/19/18 09/18/18 tramadol 50 mg PO Q6H PRN #14 tab 09/05/18 09/19/18 Unknown Active Medications Generic Name Dose Route Start Last Admin Trade Name Freq PRN Reason Stop Dose Admin Docusate Sodium 100 mg 09/19/18 09:00 09/19/18 08:59 Colace PO 10/19/18 08:59 Not Given BID TONO Sodium Chloride 1,000 mls @ 40 mls/hr 09/19/18 04:00 09/19/18 04:26 Nss 1000ml IV 10/19/18 03:59 40 mls/hr .Q24H TONO Administration Morphine Sulfate 2 mg 09/19/18 01:37 09/19/18 01:43 Morphine Sulfate IV 10/03/18 01:36 2 mg Q2H PRN Administration Pain Past Medical History Medical History Vitamin D deficiency (Chronic) Left displaced femoral neck fracture (Acute) Hip fracture, right (Resolved) s/p repair C. difficile colitis (Resolved) Right patella fracture (Resolved) Ovarian cyst (Resolved) Hypertension (Chronic) Alzheimer's dementia (Chronic) Chronic lumbar pain (Chronic) Lumbar compression fracture (Resolved) Hx of right bundle branch block (Chronic) Past Family History Family History Sister Stroke Past Surgical History Surgical History H/O oophorectomy (Chronic) Social History Smoking Status: Former smoker Hx Alcohol Use: Yes Alcohol type: beer alcohol intake frequency: 0-2 drinks per day Hx Substance Use: No substance use type: does not use Physical Exam Vital Signs Last Vital Signs Temp 37.0 C 09/19/18 07:45 Pulse 78 09/19/18 07:45 Resp 20 09/19/18 07:45 BP 145/73 H 09/19/18 07:45 Pulse Ox 92 09/19/18 07:45 Testing Electrocardiogram Date: 09/02/18 Sinus rhythm with Premature atrial complexes Low voltage QRS Right bundle branch block Abnormal ECG When compared with ECG of 05-FEB-2018 13:09, T wave inversion less evident in Inferior leads Confirmed by DANIEL BROWNE ([id number]) on 09/02/2018 1:49:00 PM Chest X-Ray Date: 09/18/18 1. Cardiomegaly. No evidence of failure 2. No pneumothorax identified 3. Upper lobe interstitial opacities, likely chronic 4. 1 cm left superhilar opacity, statistically representing a summation as no mass was visualized on the chest x-ray performed 2 weeks prior. It would nevertheless seem prudent to obtain a three-month follow-up PA and lateral examination Laboratory Results 09/19/18 00:31 09/19/18 00:31
[2018-09-19] MEDS: DOCUSATE SODIUM 100 MG CAP PO SCH ×2 (08:59→20:37)
--- NOTE | 2018-09-19 09:09 | Orthopedic Consultation ---
Date of Consultation September 19, 2018 Assessment & Plan (1) Dislocation of left hip: X-rays demonstrate a cemented stem for left hip bipolar. The bipolar components are incongruity. The hip itself is dislocated however. I do not see any appreciation of new fracture. The patient has some medical comorbidities and is recommended that we perform the reduction under guidance of anesthesia in the operating room. I have discussed the case with both the patient's as well as her daughter the consent to proceeding with a closed reduction. Risk benefits alternatives of procedure were discussed and they wish to proceed. History of Present Illness Reason for Consultation: left hip dislocation Attending Physician: Khadra Davis MD History of Present Illness The patient is an 88 yo female who had a left hip bipolar hemiarthroplasty about 2 weeks ago. She has a hx of dementia and fell last night. She apparently tried to go to the restroom without her walker may use the restroom and then fell. She has a in-home caregiver that she did not call for to assist her. She had immediate pain and deformity to the leg. Xrays showed a dislocation of the left hip bipolar. There was concern for her medical comorbidities to sedating her in the ED and reducing the hip. It was recommended she have sedation in the OR. Allergies Allergy/AdvReac Type Severity Reaction Status Date / Time No Known Allergies Allergy Verified 09/19/18 00:53 Home Medications Home Medications Medication Instructions Recorded Confirmed Type acetaminophen [Tylenol Extra 500 mg PO Q6H PRN #90 tab 09/05/18 09/19/18 Rx Strength] calcium carbonate [Tums] 500 mg PO BID 30 Days #150 tab 09/05/18 09/19/18 Rx cholecalciferol (vitamin D3) 1,000 units PO DAILY 30 Days #30 09/05/18 09/19/18 Rx [Vitamin D3] tab docusate sodium [Colace] 100 mg PO BID #60 cap 09/05/18 09/19/18 Rx tramadol 50 mg PO Q6H PRN #14 tab 09/05/18 09/19/18 Rx Patient History Medical History Vitamin D deficiency (Chronic) Left displaced femoral neck fracture (Acute) Hip fracture, right (Resolved) s/p repair C. difficile colitis (Resolved) Right patella fracture (Resolved) Ovarian cyst (Resolved) Hypertension (Chronic) Alzheimer's dementia (Chronic) Chronic lumbar pain (Chronic) Lumbar compression fracture (Resolved) Hx of right bundle branch block (Chronic) Surgical History H/O oophorectomy (Chronic) Family History Sister Stroke Social History Preferred Language: [place] Communication Ability: Impaired Communication Ability Comment: confused, [place] Language Teacher Required: No Beliefs That Will Affect Care: None marital status: Current Living Situation: Spouse Current Living Situation Comment: caregivers; 24 hr a day per ER report current occupational status: retired Other Information That Helps Us Care for You: No Feels Safe at Home: Yes Safety Concerns: Feels Safe At This Time Smoking Status: Former smoker Hx Alcohol Use: Yes Alcohol type: beer Hx Substance Use: No Physical Exam Constitutional: WD/WN, vitals as above Eyes: PERRL, conjunctivae normal, anicteric sclerae Neck: normal visual inspection Cardiovascular: Extremities: no edema Musculoskeletal: lle: incision c/d/i mild stable irritation along the incision but no drainage, leg shortened and internally rotated, lt sens and motor function intact . Results & Data Vital Signs (Past 12 Hours) Vital Signs Temp Pulse Pulse Pulse Resp BP BP 09/19/18 07:45 37.0 C 78 20 145/73 H 09/19/18 04:23 36.5 C 67 18 164/81 H 09/19/18 04:15 36.5 C 67 18 164/81 H 09/19/18 04:01 67 23 143/79 H 09/19/18 04:00 65 21 09/19/18 03:31 65 22 138/78 09/19/18 03:30 66 25 H 09/19/18 03:01 67 25 H 145/78 H 09/19/18 03:00 64 18 09/19/18 02:31 64 24 141/74 H 09/19/18 02:30 63 22 09/19/18 02:01 63 25 H 132/70 09/19/18 02:00 63 26 H 09/19/18 01:45 75 20 09/19/18 01:41 69 24 135/80 09/18/18 23:31 36.7 C 71 18 143/71 H Pulse Ox 09/19/18 07:45 92 04/20/19 04:23 94 09/19/18 04:15 94 09/19/18 04:01 09/19/18 04:00 09/19/18 03:31 09/19/18 03:30 09/19/18 03:01 09/19/18 03:00 09/19/18 02:31 09/19/18 02:30 09/19/18 02:01 09/19/18 02:00 09/19/18 01:45 09/19/18 01:41 09/18/18 23:31 94 (1) Dislocation of left hip Encounter type: initial encounter Qualified Code(s): S73.005A - Unspecified dislocation of left hip, initial encounter
[2018-09-19] MEDS ORDERED: ATROPINE SULFATE 0.1 MG/ML 10ML SYR IV PRN (09:18)
[2018-09-19] MEDS ORDERED: ePHEDrine sulfate 50 MG/ML AMP IV PRN (09:18)
[2018-09-19] MEDS ORDERED: fentaNYL citrate 100 MCG/2 ML VIAL IV PRN (09:18)
[2018-09-19] MEDS ORDERED: ONDANSETRON INJ 2 MG/ML 2 ML VIAL IV PRN ×2 (09:18→11:05)
--- NOTE | 2018-09-19 09:53 | Operative Report ---
Post Operative Report Pre & Post Diagnosis Operation Date: 09/19/18 08:30 Pre-Op Diagnosis: Left HIP DISLOCATION Post-Op Diagnosis: Left HIP DISLOCATION Procedure Operation Date: 09/19/18 08:30 Actual Procedures p Closed Reduction of left hip bipolar dislocation(Left) - Jorden Ferrara MD Surgeon Jorden Ferrara MD Airbrush Artist Sha Henson PA-C Estimated Blood Loss 0 Findings Consistent with Post-Op Diagnosis Specimens None Complications none Indications The patient is an 88-year-old female with history of dementia. She sustained a hip fracture that was treated by a bipolar hemiarthroplasty. Her postoperative course was relatively uncomplicated. She was discharged to a nursing facility and home. She was up at night going to the bathroom without her walker and without calling for her in-homemaker companion. She made it to the restroom but then fell. He sustained a dislocation of the left hip bipolar. Description of Procedure Risks benefits and alternatives to the procedure were discussed including but not limited to pain, stiffness, fracture, failure to achieve reduction, need for later surgery, damage to blood vessels, damage to nerves, risks of the anesthesia were discussed and they wished to proceed. The patient was identified. The laterality was confirmed. The patient was given sedation. Once there properly sedated I performed a closed reduction pulling 90/90 traction. There was a palpable and audible clunk. The leg lengths were restored. There is good motion at the hip. Post reduction x-rays were obtained and demonstrated adequate reduction of the total hip dislocation. I attest to the content of the Intraoperative Record and any orders documented therein. Any exceptions are noted below.
--- NOTE | 2018-09-19 10:03 | Fluoroscopy Report ---
FL hip LT 2-3V CLINICAL HISTORY: LEFT HIP CLOSED REDUCTION COMPARISON STUDY: 09/19/2018 FLUOROSCOPY TIME: 6 seconds. NUMBER OF FLUOROSCOPIC IMAGES: 2 FINDINGS: 2 intraoperative fluoroscopic spot images demonstrate interval reduction of the previous de scribed prosthetic left hip dislocation. IMPRESSION: Interval reduction of the previously described prosthetic hip dislocation Electronically signed by: David Hatfield M.D. 09/19/2018 10:01 AM
--- NOTE | 2018-09-19 10:41 | Anesthesiology Progress Note ---
Date of Service September 19, 2018 Anesthesia Post Procedure Vital Signs Vital Signs: Temp Pulse Pulse Pulse Resp BP BP 09/19/18 10:36 61 09/19/18 10:35 60 144/71 H 09/19/18 10:32 37.2 C 09/19/18 10:31 66 09/19/18 10:30 68 153/70 H 09/19/18 10:26 63 09/19/18 10:25 62 123/75 09/19/18 10:21 60 09/19/18 10:20 60 131/65 09/19/18 10:16 62 09/19/18 10:15 63 137/69 09/19/18 10:11 64 09/19/18 10:10 67 133/74 09/19/18 10:06 66 09/19/18 10:05 63 134/75 09/19/18 10:01 76 09/19/18 10:00 63 125/68 09/19/18 09:56 65 09/19/18 09:55 36.8 C 63 68 18 110/66 110/66 09/19/18 07:45 37.0 C 78 20 145/73 H 09/19/18 04:23 36.5 C 67 18 164/81 H 09/19/18 04:15 36.5 C 67 18 164/81 H 09/19/18 04:01 67 23 143/79 H 09/19/18 04:00 65 21 09/19/18 03:31 65 22 138/78 09/19/18 03:30 66 25 H 09/19/18 03:01 67 25 H 145/78 H 09/19/18 03:00 64 18 09/19/18 02:31 64 24 141/74 H 09/19/18 02:30 63 22 09/19/18 02:01 63 25 H 132/70 09/19/18 02:00 63 26 H 09/19/18 01:45 75 20 09/19/18 01:41 69 24 135/80 09/18/18 23:31 36.7 C 71 18 143/71 H Pulse Ox 09/19/18 10:36 93 09/19/18 10:35 97 09/19/18 10:32 96 09/19/18 10:31 95 09/19/18 10:30 95 09/19/18 10:26 96 09/19/18 10:25 98 09/19/18 10:21 94 09/19/18 10:20 97 09/19/18 10:16 92 09/19/18 10:15 93 09/19/18 10:11 94 09/19/18 10:10 96 09/19/18 10:06 97 09/19/18 10:05 97 09/19/18 10:01 98 09/19/18 10:00 97 09/19/18 09:56 97 09/19/18 09:55 97 09/19/18 07:45 92 09/19/18 04:23 94 09/19/18 04:15 94 09/19/18 04:01 09/19/18 04:00 09/19/18 03:31 09/19/18 03:30 09/19/18 03:01 09/19/18 03:00 09/19/18 02:31 09/19/18 02:30 09/19/18 02:01 09/19/18 02:00 09/19/18 01:45 09/19/18 01:41 09/18/18 23:31 94 Pain Intensity Left Hip: Pain Intensity: 0 Notes Mental Status: alert / awake / arousable and participated in evaluation Nausea / Vomiting: adequately controlled Pain: adequately controlled Airway Patency, RR, SpO2: stable & adequate BP & HR: stable & adequate Hydration State: stable & adequate Anesthetic Complications: no major complications apparent and Pt Satisfied with anesthetic care
[2018-09-19] MEDS ORDERED: METOCLOPRAMIDE HCL INJ 5 MG/ML 2 ML VIAL IV PRN (11:05)
[2018-09-19] MEDS ORDERED: BISACODYL 10 MG SUPP PR PRN (11:05)
[2018-09-19] MEDS: SENNA 8.6 MG TAB PO SCH (20:37)
[2018-09-19] MEDS ORDERED: DOCUSATE SODIUM 100 MG CAP PO SCH (21:00)
--- NOTE | 2018-09-20 08:23 | Orthopedic Progress Note ---
Date of Service September 20, 2018 Assessment & Plan (1) Dislocation of left hip: POD#1 Closed reduction left hip dislocation -Pain management -DVT prophylaxis per primary team -PT/OT WBAT with knee immobilizer on -Abduction pillow in bed -Posterior hip precautions -D/C planning-likely will need SNF placement Patient is orthopedically stable. Ortho will sign off at this time. Please call [phone] for a follow up appointment in [address] Kelly. Subjective Patient is POD#1 from closed reduction of her hip. In bed. Denies pain. Exam limited due to dementia. Physical Exam Physical Exam: Patient in bed comfortable, sensation and n/v status intact. Steri strips over incision. No erythema or drainage. Leg length equal Results & Data Vital Signs (Past 12 Hours) Vital Signs Temp Pulse Resp BP Pulse Ox 09/20/18 07:00 36.5 C 75 16 127/77 99 09/20/18 04:21 37.1 C 75 16 139/78 93 09/19/18 23:34 37.1 C 83 16 134/78 93 (1) Dislocation of left hip Encounter type: initial encounter Qualified Code(s): S73.005A - Unspecified dislocation of left hip, initial encounter
[2018-09-20] MEDS: DOCUSATE SODIUM 100 MG CAP PO SCH ×2 (10:15→20:20)
[2018-09-20] MEDS: MULTIVITAMIN TAB PO SCH (10:15)
--- NOTE | 2018-09-20 19:51 | Hospitalist Progress Note ---
Date of Service September 20, 2018 Assessment & Plan (1) Dislocation of left hip: Status post fall, with dislocation of left hip prosthesis Appreciate input from orthopedics Status post closed reduction Pain is well controlled, PT OT evaluation requested appreciate input And will need acute rehab Referral made to [facility], ADVANCED DEMENTIA Baseline advanced dementia oriented to person only Mental status as baseline DVT prophylaxis: Lovenox subcu Disposition: Transferred to rehab tomorrow if bed available Subjective Baseline advanced dementia, very pleasant, No sign of distress Patient is POD#1 from closed reduction of her hip. In bed. Denies pain. Exam limited due to dementia. Physical Exam Physical Exam: GENERAL: No sign of distress, HEENT: Sclera nonicteric, Normal oral mucosa, neck: No JVD, no thyromegaly, trachea midline Lungs: Clear to auscultate, Cardiovascular: Regular S1 and S2, Abdomen: Soft, nontender, bowel sounds active, Extremities: No rash or deformity, normal joint, Neuro: No focal neurological deficit, no dysarthria, no facial droop Psych: Baseline advanced dementia, oriented to person only Results & Data Vital Signs (Past 12 Hours) Vital Signs Temp Pulse Resp BP Pulse Ox 09/20/18 15:16 36.6 C 82 16 115/71 92 (1) Dislocation of left hip Encounter type: initial encounter Qualified Code(s): S73.005A - Unspecified dislocation of left hip, initial encounter
[2018-09-20] MEDS: SENNA 8.6 MG TAB PO SCH (20:20)
[2018-09-21] MEDS: MULTIVITAMIN TAB PO SCH (09:00)
[2018-09-21] MEDS: DOCUSATE SODIUM 100 MG CAP PO SCH (09:00)
--- NOTE | 2018-09-21 14:49 | Discharge Summary ---
Date of Service September 21, 2018 Admission HPI Per Admitting Provider History obtained from patient, caregiver, and records. Unable to obtain history the patient secondary to dementia and sedated state. Medical history significant for dementia, GERD, arthritis, skin cancer, osteoarthritis, past tobacco abuse. Recent confinement 2 weeks ago for left hip fracture status post surgery Patient initially discharged to have hospital later home. As per records, patient fell on her left side while walking to the bathroom without her walker. Patient noted left hip pain. Patient brought to the emergency room. 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, lives with with 24- hour caregivers Principal Diagnosis Left hip dislocation Discharge Exam Constitutional WD/WN, vitals as above Eyes PERRL, conjunctivae normal, anicteric sclerae ENMT Mouth: + dentition abnormality Mallampati Class: II Neck normal visual inspection Respiratory normal respiratory effort Auscultation: lungs clear to auscultation bilaterally Cardiovascular Rate/Rhythm: regular rate and regular rhythm Extremities: no edema Psychiatric Orientation: alert and oriented x 3 Discharge Data Allergies Allergy/AdvReac Type Severity Reaction Status Date / Time No Known Allergies Allergy Verified 09/19/18 00:53 Consultations 09/19/18 00:52 ED Decision to Admit Stat 09/19/18 00:54 Consult Orthopedic Surgery Routine 09/19/18 03:54 Consult Case Management - Discharge Planning Routine 09/19/18 03:55 Consult Case Management - Discharge Planning Routine 09/19/18 11:05 Consult Case Management - Discharge Planning Routine Procedures Performed Operation Date: 09/19/18 08:30 Actual Procedures p Closed Reduction of left hip bipolar dislocation(Left) - Jorden Ferrara MD Ordered Studies 09/19/18 00:35 CT cervical spine wo con Urgent CT head/brain wo con Urgent 09/19/18 09:30 FL fluoroscopy <1hr Routine FL hip LT 2-3V Routine Hospital Course (1) Dislocation of left hip: Status post fall, with dislocation of left prosthetic hip Appreciate input from orthopedics Status post close reduction of left hip in OR Patient recovered well post procedure PT OT evaluation appreciated Will need rehab Referral made to [facility], patient is accepted Medically stable to be transferred to [facility] today DEMENTIA: Baseline advanced dementia, oriented to person only Patient's mental status is approximate baseline Total Time Total Time Spent Total Time Spent (In Minutes): Approximate 40-minute Total Time Includes: Examination of the Patient, Discharge Planning, Medication Reconciliation and Communication With Other Providers Discharge Plan Discharge Items Patient Disposition: Transfer Inpatient Rehab Fac Reason For Visit: L HIP DISLOCATION Discharge Diagnosis: LEFT HIP DISLOCATION Discharge Goals: Decrease discomfort Activity: Per 'Additional Instructions' section Non-emergency contact: Primary Care Provider Call non-emergency contact if: you have any medication questions Follow-up/Referrals: Hermelindo Baum DO [Primary Care Provider] - Diet: Regular Diet Texture: Mechanical soft (ground) Addtl Provider Instructions: ACTIVITY RECOMMENDATIONS: SELF CARE INSTRUCTIONS AFTER TOTAL HIP REPLACEMENT Follow hip precautions for 4 weeks. Abduction pillow between legs at night. Until the incision and soft tissues around your hip have healed, there is a possibility that the hip prosthesis could dislocate. A. Observe the following precautions to prevent dislocation: 1. Don't bend your hip greater than 90 degrees. 2. Avoid crossing your legs or ankles while standing or lying. 3. Sit with your feet placed 6 inches apart. 4. When sitting, keep your knees below your hips. Sit on a firm surface, avoid deep, soft chairs and couches. Use an elevated toilet seat in the bathroom. 5. Don't bend over at the waist. Use a long handled shoehorn and a sock aid to help you put on your shoes and socks. A hothouse worker can help you roll picker objects that are too high or too low to reach. 6. Keep car riding to a minimum for at least one month after surgery. B. Your balance may be shaky for a while. Use crutches or a walker until directed by your doctor. C. Use hand rails when walking on stairs. D. Wear low heeled shoes with non-slip soles. E. Be sure that your floors are free of things that could trip you - throw rugs, electrical cords, small objects. Avoid wet and waxed floors, especially with crutches and canes. F. Try to walk several times a day with rest periods between. G. Continue with all the exercises taught to you in the hospital. Again, make walking a part of your daily routine. SPECIAL CARE INSTRUCTIONS: VERY IMPORTANT TO READ AND REVIEW Call [facility] if you have sudden increase in pain in your hip, not relieved by your regular pain medication. Please call the office at if you have any concerns or questions about your operation or recovery. * YOU MAY SHOWER * YOU SHOULD USE A WALKER OR CRUTCHES FOR 2-4 WEEKS. THIS WILL HELP PREVENT STRAIN ON YOUR HIP MUSCLE AND ALLOW IT TO HEAL PROPERLY. YOU MAY WEAN TO A CANE TOLERATED. FOLLOW UP VISIT: If appointment is not already scheduled: Please call [facility] to make a follow-up appointment for 2 weeks after your surgery at . Prescriptions: New multivitamin [Daily-Jessy] Tablet 1 tab PO QAM 30 Days Qty: 30 RF: 0 sennosides [Senokot] 8.6 mg Tablet 17.2 mg PO HS 30 Days Qty: 60 RF: 0 Continued calcium carbonate [Tums] 200 mg calcium (500 mg) Tablet,Chewable 500 mg PO BID 30 Days Qty: 150 RF: 0 cholecalciferol (vitamin D3) [Vitamin D3] 1,000 unit tablet 1,000 units PO DAILY 30 Days Qty: 30 RF: 0 docusate sodium [Colace] 100 mg capsule 100 mg PO BID Qty: 60 RF: 0 acetaminophen [Tylenol Extra Strength] 500 mg tablet 500 mg PO Q6H PRN (Reason: pain) Qty: 90 RF: 0 tramadol 50 mg tablet 50 mg PO Q6H PRN (Reason: pain) Qty: 14 RF: 0 Stand-Alone Forms: [facility] [employer] [facility]/Other Patient Handouts: Falls Risks Prevent Discharge Orders: Discharge Order (Routine); Ordered 09/21/18 Ordered By: Khadra Davis Skilled Items Patient informed of condition?: Yes DNR: No Discharge Level of Care: Acute rehab Communicable Disease: No Discharge Prognosis: Stable Admission Data Admit Date/Time: 09/19/18 03:50 Attending Provider: Khadra Davis Admit Provider: Td Vallejo Primary Care Provider: Hermelindo Baum Other Providers: Jorden Ferrara Joseph N Service: Medical Other Interventions: Discharge Summary Assessment (RN) Last Done: 09/21/18 15:34 DC Date/Time DO NOT enter until pt leaves facility: 09/21/18 18:53
== END 2018-09-21 18:53 ==
LOC: 3N 23:21 → ED 23:21 → 3N 09-19 04:05

== ENCOUNTER 2018-09-23 13:19 | Inpatient (IN) ==
--- NOTE | 2018-09-23 14:50 | XRay Report ---
XR hip LT min 2V HISTORY: 88 years-old Female Lt hip shortening, rotation acute left hip pain with history of prior l eft hip total joint arthroplasty COMPARISON: Left hip radiographs 09/19/2018 TECHNIQUE: 2 views of the left hip FINDINGS: Left hip arthroplasty redemonstrated. The femoral component is dislocated superiorly in relation to t he acetabulum which is unchanged from comparison. No associated acute fracture. Demineralized appeara nce the bones. Right hip arthroplasty is partially imaged. IMPRESSION: Superior dislocation of the left hip arthroplasty, unchanged from prior. No acute fractur e. The above report was generated using voice recognition software. It may contain grammatical, syntax o r spelling errors. Electronically signed by: Tonio Pascual M.D. 09/23/2018 2:49 PM
--- NOTE | 2018-09-23 15:14 | Emergency Department Note ---
Entered by Jen Paniagua acting as a scribe for Abad Umanzor DO History of Present Illness General Chief complaint: Hip Pain Source: family () Limitations: altered mental status History of Present Illness Provider complaint: hip pain Onset (ago): hour(s) (this morning) Location: lower extremity (hip) Pain Consistency: + constant Maximum Pain Intensity: 0 Quality: + other (pain) The patient is an 88 year old female who presents to the Emergency Department with complaints of constant hip pain this morning. Her states that the patient had a fall and was admitted to the hospital and had hip surgery. Her states that 3 days later she had another fall and states that the patient's pain came back. Per , the patient was sent from [facility]. Per , the patient has had Alzheimer's for 2 years. Per states t hat the patient last ate this morning. Limited HPI secondary to AMS. Home Medications Home Medications Medication Instructions Recorded Confirmed Type calcium carbonate [Tums] 500 mg PO BID 30 Days #150 tab 09/05/18 09/23/18 Rx docusate sodium [Colace] 100 mg PO BID #60 cap 09/05/18 09/23/18 Rx multivitamin [Daily-Jessy] 1 tab PO QAM 30 Days #30 tab 09/21/18 09/23/18 Rx tramadol 50 mg PO Q6H PRN #14 tab 09/21/18 09/23/18 Rx acetaminophen 650 mg PO Q4 PRN 09/23/18 09/23/18 History bisacodyl 10 mg SC DAILY PRN 09/23/18 09/23/18 History cholecalciferol (vitamin D3) 1,000 units PO QAM 09/23/18 09/23/18 History [Vitamin D3] enoxaparin 30 mg SUBCUT DAILY 09/23/18 09/23/18 History magnesium hydroxide [Milk of 30 ml PO DAILY PRN 09/23/18 09/23/18 History Magnesia] polyethylene glycol 3350 [Miralax] 17 g PO DAILY PRN 09/23/18 09/23/18 History sennosides [senna] 17.2 mg PO HS 09/23/18 09/23/18 History sennosides-docusate sodium 1 tab PO DAILY PRN 09/23/18 09/23/18 History [Senokot-S] sodium phosphates [Fleet Enema] 118 ml SC DAILY PRN 09/23/18 09/23/18 History Allergies Allergy/AdvReac Type Severity Reaction Status Date / Time No Known Allergies Allergy Verified 09/23/18 15:22 Past Med/Surg History Medical History Vitamin D deficiency (Chronic) Left displaced femoral neck fracture (Resolved) Hip fracture, right (Resolved) s/p repair C. 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 Physical Exam Vital Signs Vital Signs - 24 hr 09/23/18 13:22 09/23/18 15:25 09/23/18 15:41 Temperature 36.5 C Temperature Source Oral Sepsis Recent Fever Within 48 Hours No Sepsis New/Unexplained Change in Mental Status No Sepsis Action Taken by Nursing No Action Required Pulse Rate 80 Pulse Rate [Right Finger] 88 Pulse Rate from SpO2 Sensor Pulse Rhythm [Right Finger] Pulse Strength [Right Finger] Normal Respiratory Rate 16 16 Respiratory Effort / Characteristics Non-Labored Non-Labored Spontaneous Respiratory Depth Normal Normal Respiratory Pattern Regular Blood Pressure 120/62 Blood Pressure [Right Arm] 122/70 Blood Pressure Mean 81 Blood Pressure Mean [Right Arm] 87 Blood Pressure Position [Right Arm] Lying Pulse Oximetry 94 93 95 Oxygen Delivery Method Room Air Room Air Room Air Oxygen Flow Rate 09/23/18 16:00 09/23/18 16:02 09/23/18 16:08 Temperature Temperature Source Sepsis Recent Fever Within 48 Hours Sepsis New/Unexplained Change in Mental Status Sepsis Action Taken by Nursing Pulse Rate 65 65 65 Pulse Rate [Right Finger] Pulse Rate from SpO2 Sensor 65 65 64 Pulse Rhythm [Right Finger] Pulse Strength [Right Finger] Respiratory Rate 24 24 18 Respiratory Effort / Characteristics Respiratory Depth Respiratory Pattern Blood Pressure 108/63 118/66 127/66 Blood Pressure [Right Arm] Blood Pressure Mean 78 83 86 Blood Pressure Mean [Right Arm] Blood Pressure Position [Right Arm] Pulse Oximetry 98 96 97 Oxygen Delivery Method Oxygen Flow Rate 2 09/23/18 16:10 09/23/18 16:15 09/23/18 16:25 Temperature Temperature Source Sepsis Recent Fever Within 48 Hours Sepsis New/Unexplained Change in Mental Status Sepsis Action Taken by Nursing Pulse Rate 70 72 63 Pulse Rate [Right Finger] Pulse Rate from SpO2 Sensor 71 68 66 Pulse Rhythm [Right Finger] Pulse Strength [Right Finger] Respiratory Rate 26 H 28 H 19 Respiratory Effort / Characteristics Respiratory Depth Respiratory Pattern Blood Pressure 114/66 108/68 138/74 Blood Pressure [Right Arm] Blood Pressure Mean 82 81 95 Blood Pressure Mean [Right Arm] Blood Pressure Position [Right Arm] Pulse Oximetry 97 90 90 Oxygen Delivery Method Oxygen Flow Rate 2 3 3 09/23/18 16:28 09/23/18 16:30 09/23/18 16:45 Temperature Temperature Source Sepsis Recent Fever Within 48 Hours Sepsis New/Unexplained Change in Mental Status Sepsis Action Taken by Nursing Pulse Rate 63 61 62 Pulse Rate [Right Finger] Pulse Rate from SpO2 Sensor 66 62 63 Pulse Rhythm [Right Finger] Pulse Strength [Right Finger] Respiratory Rate 20 20 20 Respiratory Effort / Characteristics Respiratory Depth Respiratory Pattern Blood Pressure 119/68 125/67 Blood Pressure [Right Arm] Blood Pressure Mean 85 86 Blood Pressure Mean [Right Arm] Blood Pressure Position [Right Arm] Pulse Oximetry 90 96 93 Oxygen Delivery Method Nasal Cannula Oxygen Flow Rate 3 3 3 09/23/18 17:00 09/23/18 17:06 09/23/18 17:11 Temperature Temperature Source Sepsis Recent Fever Within 48 Hours Sepsis New/Unexplained Change in Mental Status Sepsis Action Taken by Nursing Pulse Rate 64 Pulse Rate [Right Finger] 66 Pulse Rate from SpO2 Sensor 64 Pulse Rhythm [Right Finger] Regular Pulse Strength [Right Finger] Normal Respiratory Rate 15 16 Respiratory Effort / Characteristics Non-Labored Spontaneous Respiratory Depth Normal Respiratory Pattern Blood Pressure 113/61 Blood Pressure [Right Arm] 113/61 Blood Pressure Mean 78 Blood Pressure Mean [Right Arm] 78 Blood Pressure Position [Right Arm] Pulse Oximetry 97 98 95 Oxygen Delivery Method Room Air Room Air Oxygen Flow Rate 3 09/23/18 17:34 09/23/18 18:00 09/23/18 18:20 Temperature 37 C 36.4 C L 37 C Temperature Source Oral Oral Oral Sepsis Recent Fever Within 48 Hours Sepsis New/Unexplained Change in Mental Status Sepsis Action Taken by Nursing Pulse Rate Pulse Rate [Right Finger] 71 75 71 Pulse Rate from SpO2 Sensor Pulse Rhythm [Right Finger] Pulse Strength [Right Finger] Normal Respiratory Rate 20 19 18 Respiratory Effort / Characteristics Non-Labored Spontaneous Non-Labored Non-Labored Respiratory Depth Normal Normal Normal Respiratory Pattern Regular Regular Regular Blood Pressure Blood Pressure [Right Arm] 132/72 123/73 132/72 Blood Pressure Mean Blood Pressure Mean [Right Arm] 92 89 92 Blood Pressure Position [Right Arm] Lying Semi-fowlers Semi-fowlers Pulse Oximetry 90 92 90 Oxygen Delivery Method Room Air Room Air Room Air Oxygen Flow Rate 09/23/18 22:52 09/23/18 23:34 09/24/18 03:58 Temperature 36.6 C 36.8 C Temperature Source Oral Oral Sepsis Recent Fever Within 48 Hours Sepsis New/Unexplained Change in Mental Status Sepsis Action Taken by Nursing Pulse Rate 76 Pulse Rate [Right Finger] 77 75 Pulse Rate from SpO2 Sensor Pulse Rhythm [Right Finger] Pulse Strength [Right Finger] Respiratory Rate 16 20 Respiratory Effort / Characteristics Respiratory Depth Respiratory Pattern Blood Pressure Blood Pressure [Right Arm] 114/75 117/81 Blood Pressure Mean Blood Pressure Mean [Right Arm] 88 93 Blood Pressure Position [Right Arm] Lying Pulse Oximetry 91 91 Oxygen Delivery Method Room Air Room Air Oxygen Flow Rate 09/24/18 07:00 09/24/18 08:00 Temperature 36.4 C L Temperature Source Oral Sepsis Recent Fever Within 48 Hours Sepsis New/Unexplained Change in Mental Status Sepsis Action Taken by Nursing Pulse Rate 72 Pulse Rate [Right Finger] 83 Pulse Rate from SpO2 Sensor Pulse Rhythm [Right Finger] Pulse Strength [Right Finger] Respiratory Rate 20 Respiratory Effort / Characteristics Respiratory Depth Respiratory Pattern Blood Pressure Blood Pressure [Right Arm] 119/70 Blood Pressure Mean Blood Pressure Mean [Right Arm] 86 Blood Pressure Position [Right Arm] Lying Pulse Oximetry 93 Oxygen Delivery Method Room Air Oxygen Flow Rate GENERAL: Patient is sleeping upon my arrival. She awakens easily to verbal commands. She appears to be in significant pain. EYES: The conjunctivae are clear. The pupils are round and reactive. EARS, NOSE, MOUTH AND THROAT: The nose is without any evidence of any deformity. Mucous membranes are moist tongue is midline NECK: The neck is nontender and supple. RESPIRATORY: Normal respiratory effort is noted there is no evidence of wheezing rhonchi or rales CARDIOVASCULAR: Regular rate and rhythm noted there no murmurs rubs or gallops normal S1 normal S2 GASTROINTESTINAL: The abdomen is soft. Bowel sounds are present in all quadrants. Abdomen is nontender MUSCULOSKELETAL/EXTREMITIES: Left lower extremity is internally rotated and shortened. There is significant pain with any range of motion testing. SKIN: There is no obvious evidence of any rash. Pulses are symmetric in both feet. NEUROLOGIC: Patient is alert and oriented to person place but not time or situation. Course 1404: The patient was evaluated in room C4. A history and physical were performed. 1522: I discussed the patient's case with Dyllan EVANGELISTA who said to admit the patient to Medicine and that they will reduce her. 1528: I updated the patient and her . 1531: I discussed the patient's case with Layla Fernandez who will evaluate the patient for further management. 1610: I reduced the patient's hip with Dr. Cartwright and Dyllan EVANGELISTA. It was successful. Consultations Consultation #1: Dyllan EVANGELISTA Time: 15:22 Consultation #2: Layla Fernandez Time: 15:31 Administered Medications Acetaminophen (Tylenol) 1,000 mg PO Q8H [facility] Stop: 10/23/18 21:59 Last Admin: 09/24/18 06:09 Dose: 224 mg Documented by: [id number] Admin: 09/23/18 21:08 Dose: 1,000 mg Documented by: [id number] Calcium Carbonate (Tums) 500 mg PO BID TONO Stop: 10/23/18 20:59 Last Admin: 09/24/18 07:50 Dose: 500 mg Documented by: [id number] Admin: 09/23/18 21:08 Dose: 500 mg Documented by: [id number] Docusate Sodium (Colace) 100 mg PO BID TONO Stop: 10/23/18 20:59 Last Admin: 09/24/18 07:50 Dose: 100 mg Documented by: [id number] Admin: 09/23/18 21:07 Dose: 100 mg Documented by: [id number] Enoxaparin Sodium (Lovenox) 30 mg SQ Q24H TONO Stop: 10/23/18 18:26 Last Admin: 09/23/18 21:08 Dose: 30 mg Documented by: [id number] Multivitamins (Multivitamin Tab) 1 tab PO QAM TONO Stop: 10/24/18 08:59 Last Admin: 09/24/18 07:50 Dose: 1 tab Documented by: [id number] Sennosides (Senokot) 17.2 mg PO HS TONO Stop: 10/23/18 20:59 Last Admin: 09/23/18 21:08 Dose: 17.2 mg Documented by: [id number] Vitamin D (Vitamin D3) 1,000 units PO QAM TONO Stop: 10/24/18 08:59 Last Admin: 09/24/18 07:50 Dose: 1,000 units Documented by: [id number] Discontinued Medications Aspirin (Aspirin) 324 mg PO NOW ONE Stop: 09/23/18 19:16 Last Admin: 09/23/18 19:40 Dose: 324 mg Documented by: [id number] Midazolam HCl (Versed) Confirm Administered Dose 2 mg .ROUTE .STK-MED ONE Stop: 09/23/18 15:51 Last Admin: 09/23/18 16:05 Dose: 2.5 mg Documented by: [id number] Midazolam HCl (Versed) 2.5 mg IV NOW STA Stop: 09/23/18 16:38 Last Admin: 09/23/18 16:39 Dose: Not Given Documented by: [id number] Medical Decision Making Differential Diagnosis Etiologies such as fracture, dislocation, neurovascular compromise, compartment syndrome, soft tissue injury, as well as others were entertained. Medical Records Attestation: I reviewed the patient's medical records. Home Medications Current Medication List: was personally reviewed by me Laboratory Data Attestation: I reviewed the patient's lab results. Result diagrams: 09/24/18 03:31 09/24/18 03:31 Lab Results 09/23/18 09/23/18 09/23/18 Range/Units 15:33 15:33 15:33 WBC 7.88 (4.8-10.8) K/uL RBC 3.63 L (4.2-5.4) M/uL Hgb 11.4 L (12.0-16.0) g/dL Hct 34.7 L (37-47) % MCV 95.6 (80-100) fL MCH 31.4 (25-34) pg MCHC 32.9 (32-36) g/dL RDW Std Deviation 56.3 H (36.4-46.3) fL RDW Coeff of Kelly 16.2 H (11.5-14.5) % Plt Count 273 (130-400) K/uL MPV 9.6 (7.4-10.4) fL Immature Gran % (Auto) 0.6 % Neut % (Auto) 67.1 % Lymph % (Auto) 13.5 % [place] % (Auto) 11.8 % Eos % (Auto) 6.7 % Baso % (Auto) 0.3 % Immature Gran # (Auto) 0.05 H (0.00-0.02) K/uL Neut # (Auto) 5.29 (1.4-6.5) K/uL Lymph # (Auto) 1.06 L (1.2-3.4) K/uL [place] # (Auto) 0.93 H (0.11-0.59) K/uL Eos # (Auto) 0.53 H (0-0.5) K/uL Baso # (Auto) 0.02 (0-0.2) K/uL PT 10.8 (9.0-12.0) Seconds INR 1.1 (0.9-1.1) APTT 22.3 (21.0-31.0) Seconds PTT Ratio 0.8 Sodium 141 (136-145) mmol/L Potassium 4.5 (3.5-5.1) mmol/L Chloride 109 H (98-107) mmol/L Carbon Dioxide 26 (21-32) mmol/L Anion Gap 7.0 (3-11) BUN 16 (7-18) mg/dl Creatinine 0.73 (0.6-1.2) mg/dl Est Cr Clr Drug Dosing 46.2 ml/min Est GFR ( Amer) 85.8 Est GFR (Non-Af Amer) 74.1 BUN/Creatinine Ratio 21.7 H (10-20) Glucose 97 (70-99) mg/dl Calcium 8.6 (8.5-10.1) mg/dl Total Bilirubin 0.6 (0.2-1) mg/dl AST 23 (15-37) U/L ALT 35 (12-78) U/L Alkaline Phosphatase 100 (45-117) U/L Troponin I 0.132 H* (0-0.045) ng/ml Total Protein 6.2 L (6.4-8.2) gm/dl Albumin 2.9 L (3.4-5.0) gm/dl Globulin 3.3 (2.5-4.0) gm/dl Albumin/Globulin Ratio 0.9 (0.9-2) Lipase 71 L (73-393) U/L Urine Color Urine Appearance (Clear) Urine pH (4.5-7.5) Ur Specific [place] (1.000-1.030) Urine Protein (Negative) Urine Glucose (UA) (Negative) Urine Ketones (Negative) Urine Blood (Negative) Urine Nitrite (Negative) Urine Bilirubin (Negative) Urine Urobilinogen (Negative) Ur Leukocyte Esterase (Negative) Urine WBC (Auto) (0-5) /hpf Urine RBC (Auto) (0-4) /hpf U Hyaline Cast (Auto) (0-5) /lpf U Epithel Cells (Auto) (0-5) /lpf Urine Bacteria (Auto) (Negative) Urine Mucus (None Prsent) 09/23/18 09/23/18 09/24/18 Range/Units 21:37 22:45 03:31 WBC 6.10 (4.8-10.8) K/uL RBC 3.62 L (4.2-5.4) M/uL Hgb 11.2 L (12.0-16.0) g/dL Hct 34.0 L (37-47) % MCV 93.9 (80-100) fL MCH 30.9 (25-34) pg MCHC 32.9 (32-36) g/dL RDW Std Deviation 54.3 H (36.4-46.3) fL RDW Coeff of Kelly 15.9 H (11.5-14.5) % Plt Count 245 (130-400) K/uL MPV 9.4 (7.4-10.4) fL Immature Gran % (Auto) % Neut % (Auto) % Lymph % (Auto) % [place] % (Auto) % Eos % (Auto) % Baso % (Auto) % Immature Gran # (Auto) (0.00-0.02) K/uL Neut # (Auto) (1.4-6.5) K/uL Lymph # (Auto) (1.2-3.4) K/uL [place] # (Auto) (0.11-0.59) K/uL Eos # (Auto) (0-0.5) K/uL Baso # (Auto) (0-0.2) K/uL PT (9.0-12.0) Seconds INR (0.9-1.1) APTT (21.0-31.0) Seconds PTT Ratio Sodium (136-145) mmol/L Potassium (3.5-5.1) mmol/L Chloride (98-107) mmol/L Carbon Dioxide (21-32) mmol/L Anion Gap (3-11) BUN (7-18) mg/dl Creatinine (0.6-1.2) mg/dl Est Cr Clr Drug Dosing ml/min Est GFR ( Amer) Est GFR (Non-Af Amer) BUN/Creatinine Ratio (10-20) Glucose (70-99) mg/dl Calcium (8.5-10.1) mg/dl Total Bilirubin (0.2-1) mg/dl AST (15-37) U/L ALT (12-78) U/L Alkaline Phosphatase (45-117) U/L Troponin I 0.115 H* (0-0.045) ng/ml Total Protein (6.4-8.2) gm/dl Albumin (3.4-5.0) gm/dl Globulin (2.5-4.0) gm/dl Albumin/Globulin Ratio (0.9-2) Lipase (73-393) U/L Urine Color Dark Yellow Urine Appearance Cloudy H (Clear) Urine pH 5.0 (4.5-7.5) Ur Specific [place] 1.035 H (1.000-1.030) Urine Protein Trace H (Negative) Urine Glucose (UA) Negative (Negative) Urine Ketones Trace H (Negative) Urine Blood 1+ H (Negative) Urine Nitrite Positive H (Negative) Urine Bilirubin Negative (Negative) Urine Urobilinogen Negative (Negative) Ur Leukocyte Esterase 2+ H (Negative) Urine WBC (Auto) >30 H (0-5) /hpf Urine RBC (Auto) 10-30 H (0-4) /hpf U Hyaline Cast (Auto) 1-5 (0-5) /lpf U Epithel Cells (Auto) 20-30 H (0-5) /lpf Urine Bacteria (Auto) Negative (Negative) Urine Mucus Present H (None Prsent) 09/24/18 Range/Units 03:31 WBC (4.8-10.8) K/uL RBC (4.2-5.4) M/uL Hgb (12.0-16.0) g/dL Hct (37-47) % MCV (80-100) fL MCH (25-34) pg MCHC (32-36) g/dL RDW Std Deviation (36.4-46.3) fL RDW Coeff of Kelly (11.5-14.5) % Plt Count (130-400) K/uL MPV (7.4-10.4) fL Immature Gran % (Auto) % Neut % (Auto) % Lymph % (Auto) % [place] % (Auto) % Eos % (Auto) % Baso % (Auto) % Immature Gran # (Auto) (0.00-0.02) K/uL Neut # (Auto) (1.4-6.5) K/uL Lymph # (Auto) (1.2-3.4) K/uL [place] # (Auto) (0.11-0.59) K/uL Eos # (Auto) (0-0.5) K/uL Baso # (Auto) (0-0.2) K/uL PT (9.0-12.0) Seconds INR (0.9-1.1) APTT (21.0-31.0) Seconds PTT Ratio Sodium 139 (136-145) mmol/L Potassium 3.7 D (3.5-5.1) mmol/L Chloride 108 H (98-107) mmol/L Carbon Dioxide 26 (21-32) mmol/L Anion Gap 5.0 (3-11) BUN 14 (7-18) mg/dl Creatinine 0.55 L (0.6-1.2) mg/dl Est Cr Clr Drug Dosing 54.4 ml/min Est GFR ( Amer) 97.7 Est GFR (Non-Af Amer) 84.3 BUN/Creatinine Ratio 26.2 H (10-20) Glucose 85 (70-99) mg/dl Calcium 8.3 L (8.5-10.1) mg/dl Total Bilirubin (0.2-1) mg/dl AST (15-37) U/L ALT (12-78) U/L Alkaline Phosphatase (45-117) U/L Troponin I 0.093 H* (0-0.045) ng/ml Total Protein (6.4-8.2) gm/dl Albumin (3.4-5.0) gm/dl Globulin (2.5-4.0) gm/dl Albumin/Globulin Ratio (0.9-2) Lipase (73-393) U/L Urine Color Urine Appearance (Clear) Urine pH (4.5-7.5) Ur Specific [place] (1.000-1.030) Urine Protein (Negative) Urine Glucose (UA) (Negative) Urine Ketones (Negative) Urine Blood (Negative) Urine Nitrite (Negative) Urine Bilirubin (Negative) Urine Urobilinogen (Negative) Ur Leukocyte Esterase (Negative) Urine WBC (Auto) (0-5) /hpf Urine RBC (Auto) (0-4) /hpf U Hyaline Cast (Auto) (0-5) /lpf U Epithel Cells (Auto) (0-5) /lpf Urine Bacteria (Auto) (Negative) Urine Mucus (None Prsent) Imaging Data Radiologist's Impression: Radiology results as stated below per my review and the radiologist's interpretation: XR hip LT min 2V HISTORY: 88 years-old Female Lt hip shortening, rotation acute left hip pain with history of prior left hip total joint arthroplasty COMPARISON: Left hip radiographs 09/19/2018 TECHNIQUE: 2 views of the left hip FINDINGS: Left hip arthroplasty redemonstrated. The femoral component is dislocated superiorly in relation to the acetabulum which is unchanged from comparison. No associated acute fracture. Demineralized appearance the bones. Right hip arthroplasty is partially imaged. IMPRESSION: Superior dislocation of the left hip arthroplasty, unchanged from prior. No acute fracture. The above report was generated using voice recognition software. It may contain grammatical, syntax or spelling errors. Electronically signed by: Tonio Pascual M.D. 09/23/2018 2:49 PM LEFT HIP 2 VIEWS, AP PELVIS ONE VIEW HISTORY: Left hip dislocation. post reduction COMPARISON: None. FINDINGS: Patient is status post reduction of the left hip dislocation. The alignment is now anatomic. No fracture or dislocation within the pelvis or hips. 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 Weight IMPRESSION: Status post reduction of the left hip dislocation. Alignment is anatomic. No acute fracture or dislocation within the pelvis or hips. Electronically signed by: Dash Gage M.D. 09/23/2018 4:55 PM ECG Data Attestation: I personally reviewed and interpreted this ECG as follows: Indication: other (pre-operation) Rate (beats per minute): 66 Rhythm: normal sinus Findings: + RBBB; no PAC, no PVC and no ectopy Comparison ECG Date: from (09/01/18) Change: no significant change Blood Pressure Blood Pressure Findings: Normal blood pressure MDM Narrative The patient is an 88-year-old female who presented to the emergency department f rom inpatient rehab for left hip pain. The patient has a history of a recently replaced left hip. She also had a dislocation recently as well. She presents again today with a hip dislocation. There was no reported trauma. I discussed the patient's radiographic studies with her and her significant other. I also discussed her case with the covering orthopedic physician. The patient had just eaten and I do not feel she would be a good candidate for sedation in the emergency department. When I discussed the case with the orthopedic group I did offer to give the patient some slight anxiolysis to determine if the patient's hip could be reduced with minimal sedation. We were able to get the patient a small amount of Versed. 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 The hip was able to be reduced in the usual fashion by the orthopedic surgeon. The patient's pelvis was anchored using a straight sheet. She actually tolerated the procedure quite well. The orthopedic surgeon felt this may represent an unstable dislocation because of its recent surgical intervention as well as the recent dislocation. For this reason she was felt to be a candidate for inpatient management. She was also found to have an elevated troponin. I discussed the patient's laboratory and radiographic studies with the on-call [facility] hospitalist group. They have agreed to evaluate the patient in the emergency department for further management and disposition. Impression & Plan Dislocation of left hip Discharge Plan Visit Data *Final* Discharge Date/Time: 09/23/18 17:11 Chief Complaint: Hip Pain ED Provider: Abad Umanzor Discharge Problem: Dislocation of left hip Patient Disposition: Admitted As Inpatient Discharge Instructions Interventions: ED Discharge Assessment Last Done: 09/23/18 17:11 Discharge Problem: Dislocation of left hip Qualifiers: Encounter type: initial encounter Qualified Code(s): S73.005A - Unspecified dislocation of left hip, initial encounter The scribe's documentation has been prepared under my direction and personally reviewed by me in its entirety. I confirm that the note above accurately reflects all work, treatment, procedures, and medical decision making performed by me.
[2018-09-23] MEDS ORDERED: MIDAZOLAM HCL 1 MG/ML 2ML VIAL ONE (15:50)
[2018-09-23 15:53] LABS: Basophils # (auto) 0.02 K/uL (0-0.2); Basophils % (auto) 0.3 %; Eosinophils # (auto) 0.53 K/uL (0-0.5); Eosinophils % (auto) 6.7 %; Hematocrit (blood only) 34.7 % (37-47); Hemoglobin 11.4 g/dL (12.0-16.0); Immature Granulocytes # (auto) 0.05 K/uL (0.00-0.02); Immature Granulocytes % (auto) 0.6 %; Lymphocytes # (auto) 1.06 K/uL (1.2-3.4); Lymphocytes % (auto) 13.5 %; Mean Corpuscular Hgb Conc 32.9 g/dL (32-36); Mean Corpuscular Volume 95.6 fL (80-100); Mean Platelet Volume 9.6 fL (7.4-10.4); Monocytes # (auto) 0.93 K/uL (0.11-0.59); Monocytes % (auto) 11.8 %; Neutrophils # (auto) 5.29 K/uL (1.4-6.5); Neutrophils % (auto) 67.1 %; Platelet Count 273 K/uL (130-400); RDW Coefficient of Variation 16.2 % (11.5-14.5); RDW Standard Deviation 56.3 fL (36.4-46.3); Red Blood Count 3.63 M/uL (4.2-5.4); White Blood Count 7.88 K/uL (4.8-10.8)
[2018-09-23 16:03] LABS: INR 1.1 (0.9-1.1); Partial Thromboplastin Ratio 0.8; Partial Thromboplastin Time 22.3 Seconds (21.0-31.0); Prothrombin Time 10.8 Seconds (9.0-12.0)
[2018-09-23 16:13] LABS: Albumin Level 2.9 gm/dl (3.4-5.0); BUN Creatinine Ratio 21.7 (10-20); Calcium 8.6 mg/dl (8.5-10.1); Creatinine Clr Calc Pharmacy 46.2 ml/min; Est GFR (African American) 85.8; Est GFR (Non-African American) 74.1; Potassium 4.5 mmol/L (3.5-5.1)
[2018-09-23 16:27] LABS: Albumin Globulin Ratio 0.9 (0.9-2); Bilirubin,Total 0.6 mg/dl (0.2-1); Globulin 3.3 gm/dl (2.5-4.0); Total Protein 6.2 gm/dl (6.4-8.2); Troponin I 0.132 ng/ml (0-0.045)
[2018-09-23] MEDS ORDERED: MIDAZOLAM HCL 5 MG/ML 1 ML VIAL IV STA (16:37)
--- NOTE | 2018-09-23 16:46 | History & Physical Report ---
Date of Service September 23, 2018 Assessment & Plan (1) Dislocation of left hip: This is a 88-year-old female with a PMH of Alzheimer's, hypertension, GERD, vitamin D deficiency and recent left hip fracture s/p repair on September 01 presents to the ED with hip pain and was found to have acute left hip dislocation. -Initial left hip fracture on 09/01 s/p revision, dislocated on 09/19 s/p closed reduction, presenting from [facility] today -No fall witnessed but found to have left hip dislocation today. Left hip x-ray shows superior dislocation of the left hip arthroplasty, unchanged from prior. No acute fracture. -Reduced by orthopedic service at bedside in ED. No plans for further surgery during this admission -Ortho consulted. Fitting patient with brace -Continue SQ Lovenox -Pain control with scheduled Tylenol, Tramadol PRN (2) Elevated troponin: EKG with normal sinus rhythm, RBBB (chronic) -Denies chest pain but has dementia. Initial troponin elevated at 0.132 -Will order CXR and 2D echo -Trend troponin overnight -Give full dose aspirin (3) Alzheimer's dementia: Pleasantly confused at baseline (4) Hypertension: Normotensive. Not on home antihypertensives -Monitor (5) Vitamin D deficiency: Continue vitamin D supplementation DVT Ppx: SQ Lovenox Code status: FULL per chart review, discussion with PCP: Bautista Dispo: Med tele observation. Discharge planning ordered for likely return to rehab vs SNF Patient seen in collaboration with Dr. Hi. Please see addendum. History of Present Illness Chief Complaint: Left hip dislocation Primary Care Provider: Hermelindo Baum, DO This is a 88-year-old female with a PMH of Alzheimer's, hypertension, GERD, vitamin D deficiency and recent left hip fracture s/p repair on September 01 presents to the ED with hip pain. Patient with advanced Alzheimer's disease, so history obtained from at bedside as well as nursing staff at [facility]. Patient underwent revision for initial hip fracture at the beginning of August and was discharged to [facility] for rehab for approximately 10 days before returning home. Was home for 2 days until she fell and presented to [facility] with left hip dislocation. Underwent closed reduction and was discharged back to [facility] on September 21. This morning, patient was found in her bed by staff and upon evaluation, had a new deformity of the left leg. Leg was reportedly rotated and shortened. No fall was witnessed. Was brought to ED for further evaluation. Patient is hemodynamically stable. Pleasant but confused. Left hip x-ray shows superior dislocation of the left hip arthroplasty, unchanged from prior. No a cute fracture. ED physician contacted [facility] [place], who performed bedside reduction and a brace will be placed. As of now, no further surgery is scheduled at this time. Will be observed overnight with plan to return to rehab once medically stable. ROS difficult to obtain due to patient's dementia but endorses left hip pain. Denies any chest pain, shortness of breath or abdominal pain. Allergies Allergy/AdvReac Type Severity Reaction Status Date / Time No Known Allergies Allergy Verified 09/23/18 15:22 Home Medications Home Medications Medication Instructions Recorded Confirmed Type calcium carbonate [Tums] 500 mg PO BID 30 Days #150 tab 09/05/18 09/23/18 Rx docusate sodium [Colace] 100 mg PO BID #60 cap 09/05/18 09/23/18 Rx multivitamin [Daily-Jessy] 1 tab PO QAM 30 Days #30 tab 09/21/18 09/23/18 Rx tramadol 50 mg PO Q6H PRN #14 tab 09/21/18 09/23/18 Rx acetaminophen 650 mg PO Q4 PRN 09/23/18 09/23/18 History bisacodyl 10 mg TN DAILY PRN 09/23/18 09/23/18 History cholecalciferol (vitamin D3) 1,000 units PO QAM 09/23/18 09/23/18 History [Vitamin D3] enoxaparin 30 mg SUBCUT DAILY 09/23/18 09/23/18 History magnesium hydroxide [Milk of 30 ml PO DAILY PRN 09/23/18 09/23/18 History Magnesia] polyethylene glycol 3350 [Miralax] 17 g PO DAILY PRN 09/23/18 09/23/18 History sennosides [senna] 17.2 mg PO HS 09/23/18 09/23/18 History sennosides-docusate sodium 1 tab PO DAILY PRN 09/23/18 09/23/18 History [Senokot-S] sodium phosphates [Fleet Enema] 118 ml TN DAILY PRN 04/24/19 04/24/19 History Past Med/Surg History Medical History Vitamin D deficiency (Chronic) Left displaced femoral neck fracture (Resolved) Hip fracture, right (Resolved) s/p repair C. difficile colitis (Resolved) Right patella fracture (Resolved) Ovarian cyst (Resolved) Hypertension (Chronic) Alzheimer's dementia (Chronic) Chronic lumbar pain (Chronic) Lumbar compression fracture (Resolved) Hx of right bundle branch block (Chronic) Surgical History H/O oophorectomy (Chronic) Status post-operative repair of closed fracture of left hip (Chronic) Family History Sister Stroke Social History Preferred Language: Maltese Communication Ability: Effective Beliefs That Will Affect Care: None marital status: Current Living Situation: Spouse and Rehab Current Living Situation Comment: Currently at [employer], but lives at home with and 24h care current occupational status: retired Feels Safe at Home: Yes Smoking Status: Never smoker Hx Alcohol Use: Yes Alcohol type: beer Hx Substance Use: No Review of Systems Review of Systems: See HPI. Otherwise unable to obtain due to cognitive status. Physical Exam Physical Exam: General Appearance: WD/WN, no apparent distress, pleasantly confused but able to follow basic commands Head: normocephalic, atraumatic Eyes: normal inspection, PERRL, EOMI ENT: hearing grossly normal, pharynx normal (moist mucous membranes) Neck: supple, no JVD, no adenopathy Respiratory/Chest: lungs clear to auscultation. No wheezes, rales or rhonci. No respiratory distress or accessory muscle use Cardiovascular: regular rate, rhythm, no murmur, normal peripheral pulses Abdomen/GI: normal bowel sounds, soft, non-tender to palpation Extremities/Musculoskelatal: Left hip internally rotated with leg shortened, + ecchymosis near area of greater trochanter. Distal pulses intact. No other abnormalities noted. Neurologic/Psych: alert, normal mood/affect, oriented x 3 Skin: normal color, warm/dry Results & Data Vital Signs (Past 12 Hours) Vital Signs Temp Pulse Pulse Resp BP BP Pulse Ox 09/23/18 15:41 95 09/23/18 15:25 88 16 122/70 93 09/23/18 13:22 36.5 C 80 16 120/62 94 Laboratory Results Short CBC 09/23/18 Range/Units 15:33 WBC 7.88 (4.8-10.8) K/uL Hgb 11.4 L (12.0-16.0) g/dL Hct 34.7 L (37-47) % Plt Count 273 (130-400) K/uL BMP 09/23/18 15:33 Sodium 141 Potassium 4.5 Chloride 109 H Carbon Dioxide 26 BUN 16 Creatinine 0.73 Glucose 97 Calcium 8.6 Cardiac Enzymes 09/23/18 Range/Units 15:33 Troponin I 0.132 H* (0-0.045) ng/ml Liver Function 09/23/18 Range/Units 15:33 Total Bilirubin 0.6 (0.2-1) mg/dl AST 23 (15-37) U/L ALT 35 (12-78) U/L Alkaline Phosphatase 100 (45-117) U/L Albumin 2.9 L (3.4-5.0) gm/dl Diagnostic Findings Left hip fracture: IMPRESSION: Superior dislocation of the left hip arthroplasty, unchanged from prior. No acute fracture. ECG Rhythm: normal sinus Findings: + RBBB Change: no significant change Supervising Physician Co-Signing Physician Notes I have seen and examined the patient and have discussed the case with the provider above. I agree with the assessment and plan as stated with the following exceptions. Patient is an 88-year-old female with significant dementia. I am unable to obtain history from the patient. She has her eyes closed and will nod her head yes or no to questions appropriately, but either refuses or is unable to verbalize any more than this. She was able to answer me "no" when I asked her if she was in any pain. Otherwise she is unable or unwilling to answer questions outside of this. History is from provider above and her discussion with caregivers at [facility] and family. Full CODE STATUS was confirmed with her daughter and medical POA by phone with provider above. Per records the patient was recently admitted from 09/18-09/21 secondary to a fall while walking to the bathroom without her walker. She was evaluated by orthopedics at that time and was diagnosed with dislocation of the left hip. She underwent a reduction of the hip under guidance of anesthesia in the operating room on 09/19. She was discharged to [facility] for continued rehabilitation. She had originally been admitted on 09/01 with a left hip fracture after a mechanical fall at home. Orthopedics had performed a left bipolar hemiarthroplasty on 09/02. She had no postoperative complications aside from a noted acute blood loss anemia in the postoperative setting, but did not require blood transfusion at that time. She was discharged on 09/05 to [facility] for rehab at that time, also. Today she returns again with a fall and another hip dislocation. At bedside she appears comfortable. She refused to open her eyes and resisted my one attempt to visualize her pupils. She is thin and elderly-appearing and in no acute distress. She is in no respiratory distress. Heart exam reveals S1 and S2 on auscultation without murmurs, gallops or rubs. There is no edema present. Abdomen is soft and nondistended and there is no withdrawal to pain. I am unable to ascertain more than this 2/2 dementia. This morning the patient was found in her bed by staff and upon evaluation had a new deformity of the left leg which appeared rotated and shortened. There was no witnessed fall overnight and she was brought into the emergency room for evaluation. Orthopedics proceeded with a closed reduction and had a brace placed. No further surgeries are planned this admission. Appreciate continued orthopedic recommendations regarding expected progress and disposition. Appreciate recommendations regarding weightbearing status. DO [place] (1) Alzheimer's dementia Alzheimer's disease onset: unspecified onset Dementia behavioral disturbance: without behavioral disturbance Qualified Code(s): G30.9 - Alzheimer's disease, unspecified; F02.80 - Dementia in other diseases classified elsewhere without behavioral disturbance (2) Dislocation of left hip Encounter type: initial encounter Qualified Code(s): S73.005A - Unspecified dislocation of left hip, initial encounter
--- NOTE | 2018-09-23 16:56 | XRay Report ---
LEFT HIP 2 VIEWS, AP PELVIS ONE VIEW HISTORY: Left hip dislocation. post reduction COMPARISON: None. FINDINGS: Patient is status post reduction of the left hip dislocation. The alignment is now anatomic . No fracture or dislocation within the pelvis or hips. Bilateral hip hemiarthroplasties are again no chrystal. Weight IMPRESSION: Status post reduction of the left hip dislocation. Alignment is anatomic. No acute fracture or disloc ation within the pelvis or hips. Electronically signed by: Dash Gage M.D. 09/23/2018 4:55 PM
[2018-09-23] MEDS ORDERED: POLYETHYLENE (MIRALAX) 17 GM PACK PO PRN (17:32)
[2018-09-23] MEDS ORDERED: DOCUSATE SODIUM/SENNA 50/8.6MG TAB PO PRN (17:32)
[2018-09-23] MEDS ORDERED: MAGNESIUM HYDROXIDE SUSP 30 ML UDC PO PRN (17:32)
[2018-09-23] MEDS ORDERED: TRAMADOL HCL 50 MG TABLET PO PRN (17:32)
[2018-09-23] MEDS ORDERED: SOD PHOSPHATE/SOD BIPHOSPHATE ENEMA 132 ML BTL PR PRN (17:32)
[2018-09-23] MEDS ORDERED: BISACODYL 10 MG SUPP PR PRN (17:32)
--- NOTE | 2018-09-23 18:13 | Orthopedic Consultation ---
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 Plan is to proceed with a closed reduction. Patient will require bracing now. Patient will require admission to obtain appropriate bracing. Future hip surgery may be a possibility if dislocations continue. Discussed this with her . Patient was sedated with Versed per the anesthesia department her hip reduced and she was placed in abduction pillow brace and knee immobilizer as well on the left lower extremity. History of Present Illness Attending Physician: Rambo Baptiste MD Demented female with recurrent dislocation of her left hip. Status post bipolar hemiarthroplasty. Allergies Allergy/AdvReac Type Severity Reaction Status Date / Time No Known Allergies Allergy Verified 09/23/18 15:22 Home Medications Home Medications Medication Instructions Recorded Confirmed Type calcium carbonate [Tums] 500 mg PO BID 30 Days #150 tab 09/05/18 09/23/18 Rx docusate sodium [Colace] 100 mg PO BID #60 cap 09/05/18 09/23/18 Rx multivitamin [Daily-Jessy] 1 tab PO QAM 30 Days #30 tab 09/21/18 09/23/18 Rx tramadol 50 mg PO Q6H PRN #14 tab 09/21/18 09/23/18 Rx acetaminophen 650 mg PO Q4 PRN 09/23/18 09/23/18 History bisacodyl 10 mg CO DAILY PRN 09/23/18 09/23/18 History cholecalciferol (vitamin D3) 1,000 units PO QAM 09/23/18 09/23/18 History [Vitamin D3] enoxaparin 30 mg SUBCUT DAILY 09/23/18 09/23/18 History magnesium hydroxide [Milk of 30 ml PO DAILY PRN 09/23/18 09/23/18 History Magnesia] polyethylene glycol 3350 [Miralax] 17 g PO DAILY PRN 09/23/18 09/23/18 History sennosides [senna] 17.2 mg PO HS 09/23/18 09/23/18 History sennosides-docusate sodium 1 tab PO DAILY PRN 09/23/18 09/23/18 History [Senokot-S] sodium phosphates [Fleet Enema] 118 ml CO DAILY PRN 09/23/18 09/23/18 History Patient History Medical History Vitamin D deficiency (Chronic) Left displaced femoral neck fracture (Resolved) Hip fracture, right (Resolved) s/p repair C. difficile colitis (Resolved) Right patella fracture (Resolved) Ovarian cyst (Resolved) Hypertension (Chronic) Alzheimer's dementia (Chronic) Chronic lumbar pain (Chronic) Lumbar compression fracture (Resolved) Hx of right bundle branch block (Chronic) Surgical History H/O oophorectomy (Chronic) Status post-operative repair of closed fracture of left hip (Chronic) Family History Sister Stroke Social History Preferred Language: [place] Sudanese Communication Ability: Effective Beliefs That Will Affect Care: None marital status: Current Living Situation: Spouse and Rehab Current Living Situation Comment: Currently at [employer], but lives at home with and 24h care current occupational status: retired Feels Safe at Home: Yes Smoking Status: Never smoker Hx Alcohol Use: Yes Alcohol type: beer Hx Substance Use: No Review of Systems Review of Systems: Unable to obtain patient demented Physical Exam Musculoskeletal: Ecchymosis of her hip and thigh with some edema and her hip is flexed and internally rotated and she can move her ankle up and down and neuro exam is intact. Exam of her hip is consistent with a posterior hip dislocation. Psychiatric: Demented disoriented awake alert and pleasantly demented. Results & Data Vital Signs (Past 12 Hours) Vital Signs Temp Pulse Pulse Resp BP BP Pulse Ox 09/23/18 17:34 37 C 71 20 132/72 90 09/23/18 17:11 95 09/23/18 17:06 66 16 113/61 98 09/23/18 17:00 64 15 113/61 97 09/23/18 16:45 62 20 93 09/23/18 16:30 61 20 125/67 96 09/23/18 16:28 63 20 119/68 90 09/23/18 16:25 63 19 138/74 90 09/23/18 16:15 72 28 H 108/68 90 09/23/18 16:10 70 26 H 114/66 97 09/23/18 16:08 65 18 127/66 97 09/23/18 16:02 65 24 118/66 96 09/23/18 16:00 65 24 108/63 98 09/23/18 15:41 95 09/23/18 15:25 88 16 122/70 93 09/23/18 13:22 36.5 C 80 16 120/62 94 (1) Dislocation of left hip Encounter type: initial encounter Qualified Code(s): S73.005A - Unspecified dislocation of left hip, initial encounter
[2018-09-23] MEDS ORDERED: ASPIRIN CHEW 324 MG PO ONE (19:15)
--- NOTE | 2018-09-23 19:43 | XRay Report ---
XR chest 1V portable HISTORY: Elevated troponin. Atypical chest pain. COMPARISON: Chest 09/19/2018. FINDINGS: There are low lung volumes. No pneumothorax. No pleural effusions. The heart is mildly enla rged. Mild interstitial thickening which is likely chronic. No new focal lung consolidations to sugge st pneumonia. No evidence for pulmonary edema. IMPRESSION: Stable mild cardiomegaly. No acute process within the chest. Electronically signed by: Dash Gage M.D. 09/23/2018 7:41 PM
[2018-09-23] MEDS: DOCUSATE SODIUM 100 MG CAP PO SCH (21:07)
[2018-09-23] MEDS: SENNA 8.6 MG TAB PO SCH (21:08)
[2018-09-23] MEDS: ACETAMINOPHEN SOLN 500 MG/15.62 ML UDP PO SCH (21:08)
[2018-09-23] MEDS: ENOXAPARIN INJ 30 MG/0.3 ML SYR SQ SCH (21:08)
[2018-09-23] MEDS: CALCIUM CARBONATE 500 MG CHEWABLE TAB PO SCH (21:08)
[2018-09-23 23:00] LABS: Appearance Urine Cloudy (Clear); Bacteria Urine Automated Negative (Negative); Blood Urine 1+ (Negative); Color Urine Dark Yellow; Epithelial Cell Urine Auto 20-30 /lpf (0-5); Glucose Urine UA Negative (Negative); Ketones Urine Trace (Negative); Leukocyte Esterase Urine 2+ (Negative); Nitrite Urine Positive (Negative); Protein Urine Trace (Negative); Specific Gravity Urine 1.035 (1.000-1.030); Urobilinogen Urine Negative (Negative); WBC Urine Automated >30 /hpf (0-5)
[2018-09-23 23:02] LABS: Bilirubin Urine Negative (Negative); Ictotest Urine Negative (Negative)
[2018-09-23 23:10] LABS: Mucus Urine Present (None Prsent)
--- NOTE | 2018-09-24 03:19 | Operative Report ---
DATE OF OPERATION: 09/23/2018 INDICATION FOR PROCEDURE: The patient is an 88-year-old female with a history of a recent bipolar hemiarthroplasty by Dr. Kelly. The patient had a dislocation this past weekend and was reduced by Dr. Ferrara from [facility]. She was at the rehabilitation center and had a recurrent dislocation and presented to the Emergency Room. Radiographs demonstrated she has posterior dislocation with a cemented bipolar hemiarthroplasty with cerclage wire placement. No periprosthetic fracture. She has prosthetic in her opposite hip as well that is normally located. 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 PROCEDURE: Closed reduction of the left hip bipolar hemiarthroplasty. SURGEON: Ian Espinosa MD PROJECT COACH: MARICEL Farmer ANESTHESIA: I.V. sedation. OPERATIVE PROCEDURE: The patient was in the Emergency Room setting and I.V. sedation was performed with Versed only per the Emergency Room physician. Dr. Rosen was the medical physician. The patient was strapped to the bed with a sheet and pressure placed on her hips while her hip was in a flexed and internally rotated position so I placed longitudinal traction in a flexed position with the hip internally rotated and gradually placed traction and external rotation until we were able to externally rotate the hip into place and the hip reduced without much difficulty. The hip was brought out to extension and the leg was out to length and with some gentle rotation, the hip was stable in a relatively extended position. The patient was placed into a knee immobilizer and an abduction pillow brace and we obtained pelvis, AP and lateral, cross-table type lateral x-rays to document the reduction, which demonstrated no fracture and dislocation was reduced. Dyllan Alexandre was my reference assistant and assisted in counterpressure during the reduction and she tolerated the procedure without complications. I attest to the content of the Intraoperative Record and any orders documented therein. Any exceptions are noted below. KARUNA
[2018-09-24 03:39] LABS: Hemoglobin 11.2 g/dL (12.0-16.0); Mean Corpuscular Hgb Conc 32.9 g/dL (32-36); Mean Corpuscular Volume 93.9 fL (80-100); Mean Platelet Volume 9.4 fL (7.4-10.4); Platelet Count 245 K/uL (130-400); RDW Coefficient of Variation 15.9 % (11.5-14.5); RDW Standard Deviation 54.3 fL (36.4-46.3); Red Blood Count 3.62 M/uL (4.2-5.4)
[2018-09-24 04:29] LABS: BUN Creatinine Ratio 26.2 (10-20); Calcium 8.3 mg/dl (8.5-10.1); Creatinine Clr Calc Pharmacy 54.4 ml/min; Est GFR (African American) 97.7; Est GFR (Non-African American) 84.3; Potassium 3.7 mmol/L (3.5-5.1); Troponin I 0.093 ng/ml (0-0.045)
[2018-09-24] MEDS: ACETAMINOPHEN SOLN 500 MG/15.62 ML UDP PO SCH ×2 (06:09→14:01)
[2018-09-24] MEDS: CHOLECALCIFEROL 1,000 UNITS TAB PO SCH (07:50)
[2018-09-24] MEDS: DOCUSATE SODIUM 100 MG CAP PO SCH ×2 (07:50→20:03)
[2018-09-24] MEDS: MULTIVITAMIN TAB PO SCH (07:50)
[2018-09-24] MEDS: CALCIUM CARBONATE 500 MG CHEWABLE TAB PO SCH ×2 (07:50→20:01)
--- NOTE | 2018-09-24 10:59 | Hospitalist Progress Note ---
Date of Service September 24, 2018 Assessment & Plan (1) Dislocation of left hip: This is a 88-year-old female with a PMH of Alzheimer's, hypertension, GERD, vitamin D deficiency and recent left hip fracture s/p repair on September 01 presents to the ED with hip pain and was found to have acute left hip dislocation. -Initial left hip fracture on 09/01 s/p revision, dislocated on 09/19 s/p closed reduction, presented yeserday with repeat dislocation able to be reduced with sedation in ED -No fall witnessed at facility. Left hip x-ray shows superior dislocation of the left hip arthroplasty, unchanged from prior. No acute fracture. -Fitted with brace. PT consulted, weight bearing as tolerated -Per ortho, plan for discharge to rehab per PT eval -Continue SQ Lovenox -Pain control with scheduled Tylenol, Tramadol PRN (2) Elevated troponin: Initial EKG with normal sinus rhythm, RBBB (chronic). Repeat with non- specific ST changes in anterolateral leads, lateral T wave inversion (seen on previous EKGs) -Denies chest pain but has dementia. Initial troponin elevated at 0.132 but downtrending since -Likely due to underlying diastolic dysfunction, infection. Unlikely ACS. Continue to monitor -CXR without any acute changes. TTE with mild LVH, normal systolic function with EF 55-60%, grade 1 diastolic dysfunction, AV sclerosis (3) UTI (urinary tract infection): Urinalysis with evidence of infection. Urine culture ordered -Started Rocephin empirically -Gentle IV fluids (4) Alzheimer's dementia: Pleasantly confused at baseline (5) Hypertension: Normotensive. Not on home antihypertensives -Monitor (6) Vitamin D deficiency: Continue vitamin D supplementation DVT Ppx: SQ Lovenox Code status: FULL per chart review, discussion with and daughter/POA PCP: Bautista Dispo: Med tele observation. Discharge planning ordered for likely return to rehab vs SNF Patient seen in collaboration with Dr. Baptiste. Please see addendum. Attending Addendum: Delayed entry date of service noted above care coordinated with MARICEL Arrieta please refer to her notes for full details, I agree with her notes patient seen and examined, records reviewed by myself as well on exam, patient seen with patient's and caregiver at the bedside Patient appears to be very tired, drowsiness Opens eyes nods shakes head to questions Denies pain, shortness of breath no other symptoms VS noted and reviewed Drowsy, not in distress, accessory muscle use normal rate, regular rhythm, no murmurs clear breath sounds bilaterally non distended, soft, nontender no bipedal edema, erythema, warmth no neuro deficits WBC 6.1 Hg 11.2 Crea 0.55 ASSESSMENT AND PLAN Recurrent hip dislocation Orthopedic service consulted Possible UTI Urine cultures ordered Empiric ceftriaxone IV ordered other diagnoses and plan of care as per MARICEL Arrieta's notes Rambo Baptiste MD Subjective Patient seen and examined, resting comfortably. Difficult to obtain ROS due to baseline dementia. Denies any chest pain or hip pain. Left leg immobilizer in place. at bedside. Will plan on PT evaluation, weight bearing as to lerated per orthopedics. Review of Systems Review of Systems: Denies chest pain, SOB or hip pain. Unable to obtain full ROS due to dementia/hard of hearing. Physical Exam Physical Exam: General Appearance: WD/WN, no apparent distress, pleasantly confused but able to follow basic commands Head: normocephalic, atraumatic Eyes: normal inspection, PERRL, EOMI ENT: Hard of hearing, pharynx normal (moist mucous membranes) Neck: supple, no JVD, no adenopathy Respiratory/Chest: lungs clear to auscultation. No wheezes, rales or rhonci. No respiratory distress or accessory muscle use Cardiovascular: regular rate, rhythm, no murmur appreciated, normal peripheral pulses Abdomen/GI: normal bowel sounds, soft, non-tender to palpation Extremities/Musculoskelatal: Left leg in immobilizer. Distal pulses intact. No other abnormalities noted. Neurologic/Psych: alert, normal mood/affect, oriented x 1, difficult to assess ROM and strength but spontaneously moving all extremities Skin: normal color, warm/dry Results & Data Vital Signs (Past 12 Hours) Vital Signs Temp Pulse Pulse Resp BP Pulse Ox 09/24/18 08:00 72 09/24/18 07:00 36.4 C L 83 20 119/70 93 09/24/18 03:58 36.8 C 75 20 117/81 91 09/23/18 23:34 76 (1) Alzheimer's dementia Alzheimer's disease onset: unspecified onset Dementia behavioral disturbance: without behavioral disturbance Qualified Code(s): G30.9 - Alzheimer's disease, unspecified; F02.80 - Dementia in other diseases classified elsewhere without behavioral disturbance (2) Dislocation of left hip Encounter type: initial encounter Qualified Code(s): S73.005A - Unspecified dislocation of left hip, initial encounter
[2018-09-24] MEDS: cefTRIAXone SODIUM 1,000 MG in DEXTROSE 5% 50 ML IV SCH (12:07)
[2018-09-24] MEDS ORDERED: SODIUM CHLORIDE 0.9% 1000ML 1,000 ML IV SCH (13:15)
--- NOTE | 2018-09-24 14:36 | Orthopedic Progress Note ---
Date of Service September 24, 2018 Assessment & Plan (1) Dislocation of left hip: Orthotics to place patient in Abduction brace today. Once brace is on, plan for PT WBAT Multiple questions from the patient's . Discussed plans for possible future surgery if the hip continues to dislocate. Discussed hip precautions to be adhered to but is difficult with her dementia. Plan return to [facility] in the next day or so. Subjective Pt lying in bed. Awake, alert. Pleasantly confused. at bedside. No new complaints currently. Orthotics is present to place her in an abduction brace. Physical Exam Physical Exam: Immobilizer on the LLE. Abduction pillow in place. Pillow removed. Leg lengths appear equal. Mild internal rotation noted of the leg. Gentle ROM of the left hip causes her no discomfort presently. Results & Data Vital Signs (Past 12 Hours) Vital Signs Temp Pulse Pulse Resp BP Pulse Ox 09/24/18 11:50 36.4 C L 77 18 94/58 L 97 09/24/18 08:00 72 09/24/18 07:00 36.4 C L 83 20 119/70 93 09/24/18 03:58 36.8 C 75 20 117/81 91 (1) Dislocation of left hip Encounter type: initial encounter Qualified Code(s): S73.005A - Unspecified dislocation of left hip, initial encounter
[2018-09-24] MEDS: SENNA 8.6 MG TAB PO SCH (20:01)
[2018-09-24] MEDS: ENOXAPARIN INJ 30 MG/0.3 ML SYR SQ SCH (20:01)
[2018-09-24] MEDS: ACETAMINOPHEN SOLN 160 MG/5 ML BTL PO SCH (21:29)
[2018-09-25] MEDS: ACETAMINOPHEN SOLN 160 MG/5 ML BTL PO SCH (05:59)
[2018-09-25 06:33] LABS: Hematocrit (blood only) 32.3 % (37-47); Hemoglobin 10.6 g/dL (12.0-16.0); Mean Corpuscular Hgb Conc 32.8 g/dL (32-36); Mean Corpuscular Volume 94.4 fL (80-100); Mean Platelet Volume 9.4 fL (7.4-10.4); Platelet Count 223 K/uL (130-400); RDW Coefficient of Variation 15.8 % (11.5-14.5); RDW Standard Deviation 54.1 fL (36.4-46.3); Red Blood Count 3.42 M/uL (4.2-5.4); White Blood Count 5.75 K/uL (4.8-10.8)
[2018-09-25 07:08] LABS: BUN Creatinine Ratio 17.9 (10-20); Calcium 8.6 mg/dl (8.5-10.1); Creatinine Clr Calc Pharmacy 51.6 ml/min; Est GFR (African American) 96.1; Est GFR (Non-African American) 82.9; Potassium 3.6 mmol/L (3.5-5.1)
[2018-09-25] MEDS: CALCIUM CARBONATE 500 MG CHEWABLE TAB PO SCH ×2 (07:52→19:58)
[2018-09-25] MEDS: MULTIVITAMIN TAB PO SCH (07:52)
[2018-09-25] MEDS: CHOLECALCIFEROL 1,000 UNITS TAB PO SCH (07:52)
[2018-09-25] MEDS: DOCUSATE SODIUM 100 MG CAP PO SCH ×2 (07:54→19:59)
[2018-09-25] MEDS: cefTRIAXone SODIUM 1,000 MG in DEXTROSE 5% 50 ML IV SCH (11:27)
--- NOTE | 2018-09-25 11:57 | Orthopedic Progress Note ---
Date of Service September 25, 2018 Assessment & Plan (1) Dislocation of left hip: Continue Abduction brace at all times except for bathing,getting dressed. WBAT with PT. Planning for [facility] Friday. Subjective Patient is currently lying in bed supine with her abduction brace on. Patient's is present and states that she was having some pain in the morning. Currently she is awake and alert and appears to be comfortable. Physical Exam Physical Exam: Abduction brace is currently on. She has an abduction pillow applied loosely to her lower extremities. Her left lower extremity is in slight internal rotation. Gentle range of motion of the left hip does not appear to cause pain. Gentle axial loading of the left lower extremity is not produce any pain. Leg lengths appear equal. NV intact. Toes are mobile. Results & Data Vital Signs (Past 12 Hours) Vital Signs Temp Pulse Resp BP Pulse Ox 09/25/18 07:13 36.6 C 69 20 119/73 91 09/25/18 03:23 36.6 C 78 18 118/72 94 (1) Dislocation of left hip Encounter type: initial encounter Qualified Code(s): S73.005A - Unspecified dislocation of left hip, initial encounter
--- NOTE | 2018-09-25 12:39 | Hospitalist Progress Note ---
Date of Service September 25, 2018 Assessment & Plan (1) Dislocation of left hip: This is a 88-year-old female with a PMH of Alzheimer's, hypertension, GERD, vitamin D deficiency and recent left hip fracture s/p repair on September 01 presents to the ED with hip pain and was found to have acute left hip dislocation. -Initial left hip fracture on 09/01 s/p revision, dislocated on 09/19 s/p closed reduction, presented on 09/23 with repeat dislocation able to be reduced with sedation in ED -No fall witnessed at facility. Left hip x-ray shows superior dislocation of the left hip arthroplasty, unchanged from prior. No acute fracture. -Fitted with brace. PT consulted, weight bearing as tolerated -Per ortho, plan for discharge to [facility] tomorrow - will discuss with CM -Continue SQ Lovenox -Pain control with scheduled Tylenol, Tramadol PRN (2) Elevated troponin: Initial EKG with normal sinus rhythm, RBBB (chronic). Repeat with non- specific ST changes in anterolateral leads, lateral T wave inversion (seen on previous EKGs) -Denies chest pain but has dementia. Initial troponin elevated at 0.132 but downtrending since -Likely due to underlying diastolic dysfunction, infection. Unlikely ACS. Continue to monitor -CXR without any acute changes. TTE with mild LVH, normal systolic function with EF 55-60%, grade 1 diastolic dysfunction, AV sclerosis (3) UTI (urinary tract infection): Urinalysis with evidence of infection -Started Rocephin empirically -Urine culture pending -Gentle IV fluids (4) Alzheimer's dementia: Pleasantly confused at baseline (5) Hypertension: Normotensive. Not on home antihypertensives -Monitor (6) Vitamin D deficiency: Continue vitamin D supplementation DVT Ppx: SQ Lovenox Code status: FULL per chart review, discussion with and daughter/POA PCP: Bautista Dispo: Admitted to [facility]. Discharge planning for possible return to rehab/SNF tomorrow. Patient seen in collaboration with Dr. Baptiste. Please see addendum. Attending Addendum: care coordinated with MARICEL Arrieta's notes please refer to her notes for full details, I agree with her notes patient seen and examined, records reviewed by myself as well on exam, patient seen resting in bed, comfortable Appears tired Denies pain, shortness of breath no other symptoms VS noted and reviewed Somewhat more alert, not in distress normal rate, regular rhythm, no murmurs clear breath sounds bilaterally non distended, soft, nontender no bipedal edema, erythema, warmth no neuro deficits WBC 5.75 Hg 10.6 Crea 0.58 ASSESSMENT AND PLAN Recurrent hip dislocation History of hip surgery Orthopedic surgery consulted, recommend brace placement PT OT Rule out UTI Urine cultures pending Empiric ceftriaxone IV other diagnoses and plan of care as per MARICEL Arrieta's notes Rambo Baptiste MD Subjective Patient seen and examined. Able to answer some yes/no questions. Denies any hip pain. Resting comfortably. Still not eating much so will order Boost BID, gentle IV fluids. Plan for discharge to facility tomorrow. No chest pain, shortness of breath or abdominal pain, otherwise ROS unobtainable. Review of Systems Review of Systems: See HPI for limited ROS, otherwise unobtainable due to cognitive state Physical Exam Physical Exam: General Appearance: WD/WN, no apparent distress, pleasantly confused but able to follow basic commands Head: normocephalic, atraumatic Eyes: normal inspection, PERRL, EOMI ENT: Hard of hearing, pharynx normal (moist mucous membranes) Neck: supple, no JVD, no adenopathy Respiratory/Chest: lungs clear to auscultation. No wheezes, rales or rhonci. No respiratory distress or accessory muscle use Cardiovascular: regular rate, rhythm, no murmur appreciated, normal peripheral pulses Abdomen/GI: normal bowel sounds, soft, non-tender to palpation Extremities/Musculoskelatal: Left leg in brace, with pillow. Slight hip internal rotation. Distal pulses intact. No other abnormalities noted. Neurologic/Psych: alert, normal mood/affect, oriented x 1, difficult to assess ROM and strength but spontaneously moving all extremities Skin: normal color, warm/dry Results & Data Vital Signs (Past 12 Hours) Vital Signs Temp Pulse Resp BP Pulse Ox 09/25/18 12:01 36.8 C 71 18 118/71 92 09/25/18 07:13 36.6 C 69 20 119/73 91 09/25/18 03:23 36.6 C 78 18 118/72 94 Laboratory Results Short CBC 09/25/18 Range/Units 06:07 WBC 5.75 (4.8-10.8) K/uL Hgb 10.6 L (12.0-16.0) g/dL Hct 32.3 L (37-47) % Plt Count 223 (130-400) K/uL BMP 09/25/18 06:07 Sodium 144 Potassium 3.6 Chloride 113 H Carbon Dioxide 24 BUN 10 Creatinine 0.58 L Glucose 82 Calcium 8.6 (1) Alzheimer's dementia Alzheimer's disease onset: unspecified onset Dementia behavioral disturbance: without behavioral disturbance Qualified Code(s): G30.9 - Alzheimer's disease, unspecified; F02.80 - Dementia in other diseases classified elsewhere without behavioral disturbance (2) Dislocation of left hip Encounter type: initial encounter Qualified Code(s): S73.005A - Unspecified dislocation of left hip, initial encounter
[2018-09-25] MEDS ORDERED: POTASSIUM CHLORIDE 40 MEQ in SODIUM CHLORIDE 0.9% 1000ML 1,000 ML IV SCH (13:00)
[2018-09-25] MEDS: ACETAMINOPHEN 500 MG TAB PO SCH ×2 (13:33→19:57)
[2018-09-25] MEDS: ENOXAPARIN INJ 30 MG/0.3 ML SYR SQ SCH (19:57)
[2018-09-25] MEDS: SENNA 8.6 MG TAB PO SCH (19:57)
[2018-09-26 06:22] LABS: Hemoglobin 10.7 g/dL (12.0-16.0); Mean Corpuscular Hgb Conc 33.4 g/dL (32-36); Mean Corpuscular Volume 95.2 fL (80-100); Mean Platelet Volume 9.3 fL (7.4-10.4); Platelet Count 219 K/uL (130-400); RDW Coefficient of Variation 15.7 % (11.5-14.5); RDW Standard Deviation 53.6 fL (36.4-46.3); Red Blood Count 3.36 M/uL (4.2-5.4); White Blood Count 6.15 K/uL (4.8-10.8)
[2018-09-26 06:57] LABS: BUN Creatinine Ratio 20.1 (10-20); Calcium 8.5 mg/dl (8.5-10.1); Creatinine Clr Calc Pharmacy 58.6 ml/min; Est GFR (African American) 100.2; Est GFR (Non-African American) 86.5; Potassium 3.9 mmol/L (3.5-5.1)
[2018-09-26] MEDS: CALCIUM CARBONATE 500 MG CHEWABLE TAB PO SCH (07:30)
[2018-09-26] MEDS: CHOLECALCIFEROL 1,000 UNITS TAB PO SCH (07:30)
[2018-09-26] MEDS: ACETAMINOPHEN 500 MG TAB PO SCH (07:30)
[2018-09-26] MEDS: MULTIVITAMIN TAB PO SCH (07:30)
[2018-09-26] MEDS: DOCUSATE SODIUM 100 MG CAP PO SCH (07:31)
--- NOTE | 2018-09-26 10:02 | Hospitalist Progress Note ---
Date of Service September 26, 2018 Assessment & Plan (1) Dislocation of left hip: This is a 88-year-old female with a PMH of Alzheimer's, hypertension, GERD, vitamin D deficiency and recent left hip fracture s/p repair on September 01 presents to the ED with hip pain and was found to have acute left hip dislocation. 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 Left hip x-ray shows superior dislocation of the left hip arthroplasty, unchanged from prior. No acute fracture. -Fitted with abduction brace. Continue Abduction brace at all times except for bathing,getting dressed. PT consulted, weight bearing as tolerated -Cleared to be discharged to rehab by Ortho -Continue SQ Lovenox -Pain control with scheduled Tylenol, Tramadol PRN (2) Elevated troponin: Initial EKG with normal sinus rhythm, RBBB (chronic). Repeat with non- specific ST changes in anterolateral leads, lateral T wave inversion (seen on previous EKGs) -Denies chest pain but has dementia. Initial troponin elevated at 0.132 but downtrending since -Likely due to underlying diastolic dysfunction, infection. Unlikely ACS. Continue to monitor -CXR without any acute changes. TTE with mild LVH, normal systolic function with EF 55-60%, grade 1 diastolic dysfunction, AV sclerosis (3) UTI (urinary tract infection): Urinalysis with evidence of infection Urine culture: Negative so far been given eating Placed on ceftriaxone IV day #3 DC antibiotics, follow-up cultures Monitor closely (4) Alzheimer's dementia: Pleasantly confused at baseline (5) Hypertension: Normotensive. Not on home antihypertensives -Monitor (6) Vitamin D deficiency: Continue vitamin D supplementation DVT Ppx: SQ Lovenox Code status: FULL per chart review, discussion with and daughter/POA PCP: Bautista Dispo: Return to [facility] Primary care provider per [facility] Follow-up with orthopedic service about 2 weeks Subjective Follow-up for hip dislocation, possible UTI Seen resting in bed, awake alert, oriented x2 Very pleasant, smiling, in good spirits States she feels fine overall Denies any pain in her hip or any part of her body next Has abdominal pain, dysuria No nausea, vomiting, fever chills Chest pain, shortness of breath, palpitations, dizziness Had a good breakfast this morning Denies other symptoms She is okay for discharge today Review of Systems Review of Systems: All systems reviewed & are unremarkable except as noted in HPI & below Physical Exam Physical Exam: General- oriented x 2, not in distress, speaks in sentences with no effort or accessory muscle use Eyes- anicteric Neck- no JVD Lungs- clear breath sounds bilaterally, no rales/wheezes Heart- normal rate, regular rhythm; no murmurs Abdomen- normal bowel sounds, nondistended, soft, nontender Extremities Positive abduction brace on the left lower extremity no pretibial edema, no calf tenderness Neuro- alert, oriented x 2; no gross focal neurologic deficits Skin- warm & dry Results & Data Vital Signs (Past 12 Hours) Vital Signs Temp Pulse Resp BP Pulse Ox 09/26/18 07:21 36.7 C 74 20 143/75 H 94 09/26/18 03:52 36.8 C 73 20 123/76 92 09/25/18 23:02 36.7 C 72 16 125/76 95 Laboratory Results Laboratory Results - last 24 hr 09/26/18 09/26/18 06:14 06:14 WBC 6.15 RBC 3.36 L Hgb 10.7 L Hct 32.0 L MCV 95.2 MCH 31.8 MCHC 33.4 RDW Std Deviation 53.6 H RDW Coeff of Kelly 15.7 H Plt Count 219 MPV 9.3 Sodium 143 Potassium 3.9 Chloride 114 H Carbon Dioxide 23 Anion Gap 6.0 BUN 10 Creatinine 0.51 L Est Cr Clr Drug Dosing 58.6 Est GFR ( Amer) 100.2 Est GFR (Non-Af Amer) 86.5 BUN/Creatinine Ratio 20.1 H Glucose 81 Calcium 8.5 (1) Alzheimer's dementia Alzheimer's disease onset: unspecified onset Dementia behavioral disturbance: without behavioral disturbance Qualified Code(s): G30.9 - Alzheimer's disease, unspecified; F02.80 - Dementia in other diseases classified elsewhere without behavioral disturbance (2) Dislocation of left hip Encounter type: initial encounter Qualified Code(s): S73.005A - Unspecified dislocation of left hip, initial encounter
--- NOTE | 2018-09-26 10:20 | Discharge Summary ---
Date of Service September 26, 2018 Admission HPI Per Admitting Provider This is a 88-year-old female with a PMH of Alzheimer's, hypertension, GERD, vitamin D deficiency and recent left hip fracture s/p repair on September 01 presents to the ED with hip pain. Patient with advanced Alzheimer's disease, so history obtained from at bedside as well as nursing staff at [facility]. Patient underwent revision for initial hip fracture at the beginning of August and was discharged to [facility] for rehab for approximately 10 days before returning home. Was home for 2 days until she fell and presented to [facility] with left hip dislocation. Underwent closed reduction and was discharged back to [facility] on September 21. This morning, patient was found in her bed by staff and upon evaluation, had a new deformity of the left leg. Leg was reportedly rotated and shortened. No fall was witnessed. Was brought to ED for further evaluation. Patient is hemodynamically stable. Pleasant but confused. Left hip x-ray shows superior dislocation of the left hip arthroplasty, unchanged from prior. No acute fracture. ED physician contacted [facility] orthopedic service, who performed bedside reduction and a brace will be placed. As of now, no further surgery is scheduled at this time. Will be observed overnight with plan to return to rehab once medically stable. ROS difficult to obtain due to patient's dementia but endorses left hip pain. Denies any chest pain, shortness of breath or abdominal pain. Admission Exam Per Admitting Provider General Appearance: WD/WN, no apparent distress, pleasantly confused but able to follow basic commands Head: normocephalic, atraumatic Eyes: normal inspection, PERRL, EOMI ENT: hearing grossly normal, pharynx normal (moist mucous membranes) Neck: supple, no JVD, no adenopathy Respiratory/Chest: lungs clear to auscultation. No wheezes, rales or rhonci. No respiratory distress or accessory muscle use Cardiovascular: regular rate, rhythm, no murmur, normal peripheral pulses Abdomen/GI: normal bowel sounds, soft, non-tender to palpation Extremities/Musculoskelatal: Left hip internally rotated with leg shortened, + ecchymosis near area of greater trochanter. Distal pulses intact. No other abnormalities noted. Neurologic/Psych: alert, normal mood/affect, oriented x 3 Skin: normal color, warm/dry Principal Diagnosis Recurrent left hip dislocation Discharge Exam General- oriented x 2, not in distress, speaks in sentences with no effort or accessory muscle use Eyes- anicteric Neck- no JVD Lungs- clear breath sounds bilaterally, no rales/wheezes Heart- normal rate, regular rhythm; no murmurs Abdomen- normal bowel sounds, nondistended, soft, nontender Extremities Positive abduction brace on the left lower extremity no pretibial edema, no calf tenderness Neuro- alert, oriented x 2; no gross focal neurologic deficits Skin- warm & dry Discharge Data Allergies Allergy/AdvReac Type Severity Reaction Status Date / Time No Known Allergies Allergy Verified 09/23/18 15:22 Consultations 09/23/18 15:31 ED Decision to Admit Stat 09/23/18 17:32 Consult Case Management - Discharge Planning Routine Consult Orthopedic Surgery Routine Ordered Studies XR hip LT min 2V HISTORY: 88 years-old Female Lt hip shortening, rotation acute left hip pain with history of prior left hip total joint arthroplasty COMPARISON: Left hip radiographs 09/19/2018 TECHNIQUE: 2 views of the left hip FINDINGS: Left hip arthroplasty redemonstrated. The femoral component is dislocated superiorly in relation to the acetabulum which is unchanged from comparison. No associated acute fracture. Demineralized appearance the bones. Right hip arthr oplasty is partially imaged. IMPRESSION: Superior dislocation of the left hip arthroplasty, unchanged from prior. No acute fracture. Hospital Course (1) Dislocation of left hip: This is a 88-year-old female with a PMH of Alzheimer's, hypertension, GERD, vitamin D deficiency and recent left hip fracture s/p repair on September 01 presents to the ED with hip pain and was found to have acute left hip dislocation. 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 Left hip x-ray shows superior dislocation of the left hip arthroplasty, unchanged from prior. No acute fracture. -Fitted with abduction brace. Continue Abduction brace at all times except for bathing,getting dressed. PT consulted, weight bearing as tolerated -Cleared to be discharged to rehab by Ortho -Continue SQ Lovenox -Pain control with scheduled Tylenol, Tramadol PRN (2) Elevated troponin: Initial EKG with normal sinus rhythm, RBBB (chronic). Repeat with non- specific ST changes in anterolateral leads, lateral T wave inversion (seen on previous EKGs) -Denies chest pain but has dementia. Initial troponin elevated at 0.132 but downtrending since -Likely due to underlying diastolic dysfunction, infection. Unlikely ACS. Continue to monitor -CXR without any acute changes. TTE with mild LVH, normal systolic function with EF 55-60%, grade 1 diastolic dysfunction, AV sclerosis (3) UTI (urinary tract infection): Possible UTI Urinalysis with evidence of infection Urine culture: Negative so far , pinpoint growth reintubating Placed on ceftriaxone IV day #3 DC antibiotics, follow-up cultures Monitor closely Consider repeat UA and urine cultures in 2 to 3 days (4) Alzheimer's dementia: Pleasantly confused at baseline (5) Hypertension: Normotensive. Not on home antihypertensives -Monitor (6) Vitamin D deficiency: Continue vitamin D supplementation DVT Ppx: SQ Lovenox Code status: FULL per chart review, discussion with and daughter/POA PCP: Bautista Dispo: Return to [facility] Primary care provider per [facility] Follow-up with orthopedic service about 2 weeks Total Time Total Time Spent Total Time Spent (In Minutes): 40 minutes Discharge Plan Discharge Items Patient Disposition: Transfer Inpatient Rehab Fac Reason For Visit: L HIP DISLOCATION Discharge Diagnosis: Left Hip Dislocation, Recurrent Discharge Goals: Diagnostic testing and Therapeutic intervention Activity: As commented below Activity Comment: Always with assistance, continue PT OT Weightbearing: Left weightbearing Weightbearing Comment: as tolerated with walker Non-emergency contact: Primary Care Provider and Surgeon Call non-emergency contact if: you have any medication questions, your symptoms worsen, your pain is not controlled and you have a fever Follow-up/Referrals: Hermelindo Baum, [Primary Care Provider] - Diet: Regular Addtl Provider Instructions: Please refer to accompanying discharge summary for further details. ACTIVITY RECOMMENDATIONS: You must wear your abduction brace at all times except for batheing and getting dressed. SELF CARE INSTRUCTIONS AFTER TOTAL HIP REPLACEMENT Until the soft tissues around your hip have healed, there is a possibility that the hip prosthesis could dislocate. A. Observe the following precautions to prevent dislocation: 1. Don't bend your hip greater than 90 degrees. 2. Avoid crossing your legs or ankles while standing or lying. 3. Sit with your feet placed 6 inches apart. 4. When sitting, keep your knees below your hips. Sit on a firm surface, avoid deep, soft chairs and couches. Use an elevated toilet seat in the bathroom. 5. Don't bend over at the waist. Use a long handled shoehorn and a sock aid to help you put on your shoes and socks. A branch service leader can help you pick up attendant objects that are too high or too low to reach. 6. Keep car riding to a minimum for at least one month after surgery. B. Your balance may be shaky for a while. Use crutches or a walker until directed by your doctor. C. Use hand rails when walking on stairs. D. Wear low heeled shoes with non-slip soles. E. Be sure that your floors are free of things that could trip you - throw rugs, electrical cords, small objects. Avoid wet and waxed floors, especially with crutches and canes. F. Try to walk several times a day with rest periods between. G. Continue with all the exercises taught to you in the hospital. Again, make walking a part of your daily routine. SPECIAL CARE INSTRUCTIONS: VERY IMPORTANT TO READ AND REVIEW A. You may still be at risk for phlebitis and blood clots. 1. Wear surgical stockings (FEDERICO hose) for 2 weeks after surgery to improve circulation and reduce swelling. 2. Take Aspirin daily for 4 weeks or as directed by your doctor. This is your blood thinner. B. You must take antibiotics before having dental work, bladder, bowel and other surgery. Your doctor will provide you with a permanent card to carry describing precautions. C. Call [facility] if you have a fever, redness or swelling around the incision, cloudy drainage from incision, or sudden increase in pain in your hip, not relieved by your regular pain medication. D. Please call the office at if you have any concerns or questions about your operation or recovery. * YOU MAY SHOWER, NO TUB BATHS UNTIL CLEARED BY YOUR DOCTOR. * WEAR FEDERICO HOSE 20 HOURS PER DAY FOR 2 WEEKS. * YOU SHOULD USE A WALKER OR CRUTCHES FOR 2-4 WEEKS. THIS WILL HELP PREVENT STRAIN ON YOUR HIP MUSCLE AND ALLOW IT TO HEAL PROPERLY. YOU MAY WEAN TO A CANE TOLERATED. FOLLOW UP VISIT: If appointment is not already scheduled: Please call [facility] to make a follow-up appointment for 2 weeks after your surgery at . (Dr Kelly) Follow-up with primary care physician 1 to 2 weeks post discharge from rehab. Prescriptions: Continued acetaminophen 325 mg Tablet 650 mg PO Q4 PRN (Reason: Pain) RF: 0 polyethylene glycol 3350 [Miralax] 17 gram Powder In Packet 17 g PO DAILY PRN (Reason: Constipation) RF: 0 sennosides-docusate sodium [Senokot-S] 8.6-50 mg Tablet 1 tab PO DAILY PRN (Reason: Constipation) RF: 0 magnesium hydroxide [Milk of Magnesia] 400 mg/5 mL Suspension 30 ml PO DAILY PRN (Reason: Constipation) RF: 0 bisacodyl 10 mg Suppository 10 mg OK DAILY PRN (Reason: Constipation) RF: 0 Fleet Enema 19-7 gram/118 mL Enema 118 ml OK DAILY PRN (Reason: Constipation) RF: 0 enoxaparin 30 mg/0.3 mL syringe 30 mg subcut DAILY RF: 0 sennosides [senna] 8.6 mg tablet 17.2 mg PO HS RF: 0 cholecalciferol (vitamin D3) [Vitamin D3] 1,000 unit tablet 1,000 units PO QAM RF: 0 calcium carbonate [Tums] 200 mg calcium (500 mg) Tablet,Chewable 500 mg PO BID 30 Days Qty: 150 RF: 0 docusate sodium [Colace] 100 mg capsule 100 mg PO BID Qty: 60 RF: 0 multivitamin [Daily-Jessy] Tablet 1 tab PO QAM 30 Days Qty: 30 RF: 0 tramadol 50 mg tablet 50 mg PO Q6H PRN (Reason: pain) Qty: 14 RF: 0 Stand-Alone Forms: [facility] Discharge Orders: Discharge Order (Routine); Ordered 09/26/18 Ordered By: Rambo Baptiste Skilled Items Patient informed of condition?: Yes DNR: No Discharge Level of Care: Acute rehab Communicable Disease: No Discharge Prognosis: Stable Admission Data Admit Date/Time: 09/25/18 12:34 Attending Provider: Rambo Baptiste Admit Provider: Carlita Hi Primary Care Provider: Hermelindo Baum. Other Providers: Homer Hollis ; Carlita Hi Service: Telemetry Medical
[2018-09-26] MEDS: cefTRIAXone SODIUM 1,000 MG in DEXTROSE 5% 50 ML IV SCH (11:56)
--- OUTSIDE RECORDS SUMMARY | 2018-09-28 20:36 | External Medical Summary | Continuity of Care Document ---
:1930 Author Name Kiara Fernando Address Unavailable Unavailable , Care Team Providers Name Role Phone Unavailable Unavailable Unavailable Akira Fernando Unavailable [email or web address] REWINDER OPERATOR HELPER Unavailable [email or web address] Dacia DOUGHERTY Unavailable [email or web address] Daniel Campos M.D. Unavailable [email or web address] MARIE MCINTYRE M.D., V Unavailable Unavailab le Unavailable Unavailable Unavailable Problems Open wound of scalp (873.0) (S01.00XA) Vascular dementia (290.40) (F01.50) Shortness of breath (786.05) (R06.02) Constipation (564.00) (K59.00) Tremor (781.0) (R25.1) Insomnia (780.52) (G47.00) History of Nasal congestion (478.19) (R09.81) Status: Resolved Symptoms Involving Cognition (799.59) Hot Flashes Bone Pain In The Knee History of Hyperthermia, Non-infectious (992.0) Status: Resolved Stroke syndrome Postmenopausal disorder (627.9) (N95.1) Postmenopausal hormone replacement therapy (V07.4) (Z79.890) Fracture of vertebral column (805.8) Dizziness (780.4) (R42) Fatigue (780.79) (R53.83) Alzheimer's disease (331.0) (G30.9) Urinary urgency (788.63) (R39.15) Lower back pain (724.2) (M54.5) Compression fracture of lumbar vertebra (805.4) (S32.000A) Depression with anxiety (300.4) (F41.8) Hyperlipidemia (272.4) (E78.5) Joint pain, knee (719.46) (M25.569) Osteoporosis (733.00) (M81.0) Menopause (627.2) (Z78.0) Fainting (780.2) (R55) Slurred speech (784.59) (R47.81) 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) Encounter for routine gynecological exam ination with Papanicolaou smear of cervix (V72.31) (Z01.419) Urinary incontinence (788.30) (R32) Gait disturbance (781.2) (R26.9) Anxiety disorder (300.00) (F41.9) Lumbago (724.2) (M54.5) Lump or mass in breast (611.72) (N63.0) Allergies and Adverse Reactions No Known Drug Allergies (Allergy) Medications Namenda XR 28 MG Oral Capsule Extended Release 24 Hour ; TAKE 1 CAPSULE Daily FARHAT Rene Start: 09-Sep-2013 Quantity: 30 Refills: 5 Mirtazapine 15 MG Oral Tablet; TAKE 1 TABLET Bedtime Abdullahi Campos Start: 13-Jul-2012 Quantity: 30 Refills: 11 Multi Vitamin/Minerals Oral Tablet; TAKE 1 TABLET DAILY. , M .D. Refills: 0 Vitamin D3 1000 UNIT Oral Capsule; TAKE 1 CAPSULE Daily , M. DSacha Refills: 0 Aspirin 81 MG TABS; TAKE 1 TABLET DAILY. , M.D. Refills: 0 Aleve 220 MG Oral Tablet; TAKE 1 TABLET around 10- 11 am if need and second tablet around 3-4-5 pm if need for loaw back pain Abdullahi Champion Start: 15-Dec-2013 Quantity: 60 Ralitsa Refills: 0 Myrbetriq 50 MG Oral Tablet Extended Release 24 Hour; TAKE 1 TABLET EVERY DAY CORDELIA Kendrick Start: 23-Aug-2013 Quantity: 30 Refills: 11 traMADol-Acetaminophen 37.5-325 MG Oral Tablet; 1 tab in the morning and in the evening as need for significant pain Abdullahi Champion Start: 12-Jul-2013 Quantity: 60 Ralitsa Refills: 5 busPIRone HCl - 5 MG Oral Tablet; TAKE 1 TABLET EVERY 12 HOURS DAILY. Abdullahi Champion Start: 09-Mar-2013 Refills: 0 Ralitsa Metamucil Plus Calcium Oral Capsule; TAKE Adams OTERO Start: 27-Sep-2011 Refills: 0 Donepezil HCl - 10 MG Oral Tablet; TAKE 1 TABLET Bedtime Abdullahi Bergman Quantity: 30 Refills: 11 Procedures History of Elbow Surgery Status: Complet ed Immunizations Influenza On: 2010 Influenza On: Mar-2012 Influenza On: 02-Mar-2013 Family History Unknown Family Member Family history of Cancer Status: Active Comments: Famil y History Family history of Mother At Age ___ Status: Active Comments: Family History Father Family history of Father At Age ___ Status: Active Social History - Smoking Status Former smoker Plan of Treatment Planned Observations Planned Goals not documented Results No Known Results Results not documented
== END 2018-09-26 13:15 | DRG 560 ==
LOC: 3W 13:19 → ED 13:19 → 2W 17:11